=== PATIENT | male | born 1930 | race Caucasian/White ===

== ENCOUNTER 2019-08-03 14:00 | Inpatient (IN) | payer OTHER, MEDICARE ==
[2019-08-03 14:35] LABS: Absolute Lymphocytes (CBC) 1.5 K/uL (0.7-4.9); Hematocrit 43.5 % (39.6-49.0); Lymphocytes % 19.6 % (15.3-44.8); MPV 9.4 fL (7.6-11.3); RBC Red Blood Cell Count 4.62 M/uL (4.33-5.43)
[2019-08-03 14:40] LABS: Protime INR 1.05
[2019-08-03] MEDS ORDERED: ASPIRIN 81 MG CHEWABLE TABLET ONE (14:52)
[2019-08-03 14:53] LABS: Potassium 4.2 mmol/L (3.5-5.1)
[2019-08-03] MEDS ORDERED: NA CHLORIDE 0.9% 1,000 ML ONE (14:54)
[2019-08-03] MEDS ORDERED: FOLIC ACID 5 MG/ML VIAL ONE (14:54)
[2019-08-03 15:05] LABS: ALT/SGPT 16 U/L (12-78); AST/SGOT 21 U/L (15-37); Albumin 3.1 g/dL (3.4-5.0); Alkaline Phosphatase 67 U/L (45-117); Bilirubin Direct 0.3 mg/dL (0-0.2); Bilirubin Total 0.7 mg/dL (0.2-1.0); Magnesium 2.4 mg/dL (1.8-2.4); NT PRO-BNP 519 pg/mL (<450); Protein, Total 6.2 g/dL (6.4-8.2); Troponin (Emerg Dept Use Only) < 0.02 ng/mL (0.0-0.045)
--- NOTE | 2019-08-03 15:10 | RAD REPORT ---
EXAM DESCRIPTION: RAD - Chest Single View - 08/03/2019 2:35 pm CLINICAL HISTORY: Syncopal episode, shortness of breath, cough COMPARISON: May 2015 TECHNIQUE: AP portable chest image was obtained 1432 hour . FINDINGS: Lung volumes are low accentuating baseline interstitial pattern. No peripheral mass or con solidation. No significant failure or volume overload. Heart and vasculature are normal. No measurabl e pleural effusion and no pneumothorax. No acute bony abnormality seen. No acute aortic findings susp ected. IMPRESSION: No acute cardiopulmonary process.
--- NOTE | 2019-08-03 15:30 | ER ---
Nurse's Notes [facility] Name: Chace Schulz Age: 89 yrs Sex: Male : 1930 Arrival Date: 08/03/2019 Time: 14:08 Bed 2 Private MD: Diagnosis: Syncope and collapse-NEAR;Weakness Presentation: 08/03 14:10 Presenting complaint: EMS states: EMS called for possible syncopal episode, upon ph arrival pt found to pale and clammy w/ AMS, responsive only to loud verbal stimuli, also noted to have weakness in R arm and dragging R leg when moving to stretcher, systolic BP 110, BGL 157, episode lasted approx 10 minutes, pt then became more alert and weakness to R side of body improved, Pt reports having recent cold like symptoms for which he has been taking OTC medications, Symptoms began at approx 1315. Transition of care: patient was not received from another setting of care. No acute neurological deficit is noted. The patients blood glucose was checked before arriving to the hospital and was found to be normal. Onset of symptoms was August 03, 2019. Risk Assessment: Do you want to hurt yourself or someone else? Patient reports no desire to harm self or others. Initial Sepsis Screen: Does the patient meet any 2 criteria? No. Patient's initial sepsis screen is negative. Does the patient have a suspected source of infection? No. Patient's initial sepsis screen is negative. Care prior to arrival: IV initiated. 20 GA, in the right antecubital area, Glucose check: 157. 14:10 Method Of Arrival: EMS: [facility] 14:10 Acuity: CARMEN 2 ph Stroke Activation: Symptom onset < 3 hours Physician: Stroke Attending; Name: ; Notified At: ; Arrived At: Physician: Chief Stroke Resident; Name: ; Notified At: ; Arrived At: Physician: Stroke Resident; Name: ; Notified At: ; Arrived At: Physician: ED Attending; Name: ; Notified At: ; Arrived At: Physician: ED Resident; Name: ; Notified At: ; Arrived At: Historical: - Allergies: 14:16 No Known Allergies; ph - Home Meds: 14:16 terazosin 2 mg oral cap 1 cap nightly [Active]; ph - PMHx: 14:16 Hypertension; ph - Immunization history:: Adult Immunizations unknown. - Social history:: Smoking status: Patient/guardian denies using tobacco. - Ebola Screening: : No symptoms or risks identified at this time. - Family history:: not pertinent. Screenin:40 Abuse screen: Denies threats or abuse. Denies injuries from another. Nutritional ph screening: No deficits noted. Tuberculosis screening: No symptoms or risk factors identified. Fall Risk None identified. Assessment: 14:09 Reassessment: code stroke called. ph 14:11 Reassessment: Pt taken to CT via stretcher, accompanied by RN. ph 14:25 VAN Scoring: Arm Drift: Patients demonstrates NO arm weakness. Patient is VAN Negative. ph T-PA (Activase) Screening: Contraindications: Rapidly improving condition or minor deficit: Yes. General: Appears in no apparent distress. comfortable, well groomed, Behavior is calm, cooperative, appropriate for age, Denies fever. Pain: Denies pain. Neuro: Level of Consciousness is awake, alert, obeys commands, Oriented to person, place, time, situation, It Administrator are equal bilaterally Moves all extremities. Full function Speech is normal, Facial symmetry appears normal, Facial symmetry: tongue is midline, Pupils are PERRLA, Intact Denies weakness dizziness, headache. Cardiovascular: Capillary refill < 3 seconds in bilateral fingers Patient's skin is warm and dry. Rhythm is irregular. Respiratory: Reports cough that is non-productive, Airway is patent Respiratory effort is even, unlabored, Respiratory pattern is regular, symmetrical, Breath sounds are clear in left posterior lower lobe and right posterior lower lobe Breath sounds are coarse in mediastinum Denies shortness of breath at rest. GI: Patient currently denies abdominal pain, diarrhea, nausea, vomiting. EENT: Reports nasal discharge that is watery. Derm: Skin is intact, is healthy with good turgor, Skin is pink, warm \T\ dry. Musculoskeletal: Circulation, motion, and sensation intact. Range of motion: intact in all extremities. 14:50 Patient has been NPO before screening. The patient is alert, and able to follow ph commands. The patient does not exhibit slurred or garbled speech. The patient is not exhibiting difficulty speaking. The patient does not exhibit difficulty understanding words. The patient is able to swallow own secretions with no drooling or need for suction. Patient tolerated one teaspoon of water. No drooling, immediate coughing, gurgling, or clearing of the throat was noted. The patient tolerated 90mL of water. No drooling, immediate coughing, gurgling, or clearing of the throat was noted. The patient passed the bedside swallow screening. Oral medications may be given as ordered. Contact Physician for further diet orders. Provider notified of bedside swallow screening results: Shekhar Mata MD. 16:15 Reassessment: Patient appears in no apparent distress at this time. Patient and/or ph family updated on plan of care and expected duration. Pain level reassessed. Patient is alert, oriented x 3, equal unlabored respirations, skin warm/dry/pink. Pt ambulated to restroom w/ steady gait, denies dizziness or SOB, urine sample obtained, awaiting room assignment, family at bedside. 17:20 Reassessment: Patient appears in no apparent distress at this time. Patient and/or ph family updated on plan of care and expected duration. Pain level reassessed. Patient is alert, oriented x 3, equal unlabored respirations, skin warm/dry/pink. 18:21 Reassessment: Patient appears in no apparent distress at this time. Patient and/or ph family updated on plan of care and expected duration. Pain level reassessed. Patient is alert, oriented x 3, equal unlabored respirations, skin warm/dry/pink. Report called to Evonne STRONG. Vital Signs: 14:15 BP 137 / 56; Pulse 72; Resp 18; Temp 97.6; Pulse Ox 99% on R/A; Weight 90.72 kg; Height ph 5 ft. 10 in. (177.80 cm); Pain 0/10; 15:30 BP 159 / 76; Pulse 75; Resp 18; Pulse Ox 99% on R/A; Pain 0/10; ph 17:00 BP 179 / 89; Pulse 75; Resp 18; Pulse Ox 99% on R/A; ph 18:12 BP 178 / 96; Pulse 81; Resp 18; Temp 98.0; Pulse Ox 100% on R/A; ph 14:15 Body Mass Index 28.70 (90.72 kg, 177.80 cm) ph NIH Stroke Scale Scores: 14:25 NIHSS Score: 0 ph 14:30 NIHSS Score: 0 [facility] ED Course: 14:08 Patient arrived in ED. ph 14:09 Shekhar Mata MD is Attending Physician. lars 14:15 Triage completed. ph 14:17 Arm band placed on Patient placed in an exam room, on a stretcher, on media monitor, ph on pulse oximetry. 14:19 Mary Jacobson RN is Primary Nurse. ph 14:33 X-ray completed. Portable x-ray completed in exam room. Patient tolerated procedure sw well. 15:00 Maintain EMS IV. Dressing intact. Good blood return noted. Site clean \T\ dry. Gauge \T\ ph site: 20 RAC. 15:28 Bhavesh Oliver is Hospitalizing Provider. lars 15:41 Patient has correct armband on for positive identification. Placed in gown. Bed in low ph position. Call light in reach. Side rails up X2. monitoring coordinator on. Pulse ox on. NIBP on. Door closed. Noise minimized. Warm blanket given. Head of bed elevated. 15:41 No provider procedures requiring assistance completed. Patient admitted, IV remains in ph place. 16:41 Ultrasound completed. Patient tolerated well. sg3 Administered Medications: 14:59 Drug: NS 0.9% 1000 ml Route: IV; Rate: 1 bolus; Site: right antecubital; ph 15:42 Follow up: Response: No adverse reaction; IV Status: Completed infusion; IV Intake: ph 1000ml 14:59 Drug: Aspirin Chewable Tablet 324 mg Route: PO; ph 15:43 Follow up: Response: No adverse reaction ph 14:59 Drug: foLIC Acid 1 mg Route: IVPB; Site: right antecubital; ph 15:43 Follow up: Response: No adverse reaction; IV Status: Completed infusion ph 18:15 Drug: Lovenox 40 mg Route: Sub-Q; Site: right lower abdomen; ph 18:25 Follow up: Response: No adverse reaction ph Point of Care Testing: Blood Glucose: 14:27 Blood Glucose: 119 mg/dL; ph Ranges: Intake: 15:42 IV: 1000ml; Total: 1000ml. ph Outcome: 15:29 Decision to Hospitalize by Provider. lars 18:22 Admitted to Tele accompanied by tech, family with patient, via wheelchair, room 401, ph with chart. 18:22 Condition: stable 18:22 Instructed on the need for admit. 18:41 Patient left the ED. ph NIH Stroke Scale - NIH Stroke Score Date: 08/03/2019 Time: 14:25 Total Score = 0 1a. Level of Consciousness (LOC) - 0(Alert) 1b. Level of Consciousness (LOC) (Year \T\ Age) - 0(Both) 1c. LOC Commands (Open \T\ Closes Eyes/[employer] Members[employer] Sales Agent) - 0(Both) 2. Best Gaze (Lateral Gaze Paresis) - 0(Normal) 3. Visual Field Loss - 0(No visual loss) 4. Facial Palsy - 0(Normal) 5a. Left Arm: Motor (10-second hold) - 0(No drift) 5b. Right Arm: Motor (10-second hold) - 0(No drift) 6a. Left Leg: Motor (5-second hold - always test supine) - 0(No drift) 6b. Right Leg: Motor (5-second hold - always test supine) - 0(No drift) 7. Limb Ataxia (finger/nose \T\ heel/ferrara - test with eyes open) - 0(Absent) 8. Sensory Loss (pinprick arms/legs/face) - 0(Normal) 9. Best Language: Aphasia (description/naming/reading) - 0(No aphasia) 10. Dysarthria (speech clarity - read or repeat words) - 0(Normal) 11. Extinction and Inattention (visual/tactile/auditory/spatial/personal) - 0(No abnormality) Initials: NIH Stroke Scale - NIH Stroke Score Date: 08/03/2019 Time: 14:30 Total Score = 0 1a. Level of Consciousness (LOC) - 0(Alert) 1b. Level of Consciousness (LOC) (Year \T\ Age) - 0(Both) 1c. LOC Commands (Open \T\ Closes Eyes/[employer] Members[employer] Sales Agent) - 0(Both) 2. Best Gaze (Lateral Gaze Paresis) - 0(Normal) 3. Visual Field Loss - 0(No visual loss) 4. Facial Palsy - 0(Normal) 5a. Left Arm: Motor (10-second hold) - 0(No drift) 5b. Right Arm: Motor (10-second hold) - 0(No drift) 6a. Left Leg: Motor (5-second hold - always test supine) - 0(No drift) 6b. Right Leg: Motor (5-second hold - always test supine) - 0(No drift) 7. Limb Ataxia (finger/nose \T\ heel/ferrara - test with eyes open) - 0(Absent) 8. Sensory Loss (pinprick arms/legs/face) - 0(Normal) 9. Best Language: Aphasia (description/naming/reading) - 0(No aphasia) 10. Dysarthria (speech clarity - read or repeat words) - 0(Normal) 11. Extinction and Inattention (visual/tactile/auditory/spatial/personal) - 0(No abnormality) Initials: [facility] Signatures: Shekhar Mata MD MD cha Hall, Patricia, RN RN ph Levi, Mary Carmen Vazquez sg3
--- NOTE | 2019-08-03 15:30 | EDPHYS ---
Physician Documentation [facility] Name: Chace Schulz Age: 89 yrs Sex: Male : 1930 Arrival Date: 08/03/2019 Time: 14:08 Bed 2 Private MD: ED Physician Shekhar Mata HPI: 08/03 14:30 This 89 yrs old Male presents to ER via EMS with complaints of Near Syncope, lars Weakness. 14:30 The patient has experienced near-syncope, almost passed out, felt dizzy. Onset: The lars symptoms/episode began/occurred just prior to arrival. Duration: This was a single episode, that lasted 25 minute(s). Context: occurred at home. Associated injury: The patient did not suffer any apparent associated injury. Associated signs and symptoms: The patient has no apparent associated signs or symptoms. The patient has not experienced similar symptoms in the past. Historical: - Allergies: 14:16 No Known Allergies; ph - Home Meds: 14:16 terazosin 2 mg oral cap 1 cap nightly [Active]; ph - PMHx: 14:16 Hypertension; ph - Immunization history:: Adult Immunizations unknown. - Social history:: Smoking status: Patient/guardian denies using tobacco. - Ebola Screening: : No symptoms or risks identified at this time. - Family history:: not pertinent. ROS: 14:30 Constitutional: Negative for fever, chills, and weight loss, Eyes: Negative for injury, lars pain, redness, and discharge, ENT: Negative for injury, pain, and discharge, Neck: Negative for injury, pain, and swelling, Cardiovascular: Negative for chest pain, palpitations, and edema, Respiratory: Negative for shortness of breath, cough, wheezing, and pleuritic chest pain, Abdomen/GI: Negative for abdominal pain, nausea, vomiting, diarrhea, and constipation, Back: Negative for injury and pain, : Negative for injury, bleeding, discharge, and swelling, MS/Extremity: Negative for injury and deformity, Skin: Negative for injury, rash, and discoloration, Psych: Negative for depression, anxiety, suicide ideation, homicidal ideation, and hallucinations, Allergy/Immunology: Negative for hives, rash, and allergies, Endocrine: Negative for neck swelling, polydipsia, polyuria, polyphagia, and marked weight changes, Hematologic/Lymphatic: Negative for swollen nodes, abnormal bleeding, and unusual bruising. 14:30 Neuro: Positive for near syncope. Exam: 14:30 Constitutional: This is a well developed, well nourished patient who is awake, alert, lars and in no acute distress. Head/Face: Normocephalic, atraumatic. Eyes: Pupils equal round and reactive to light, extra-ocular motions intact. Lids and lashes normal. Conjunctiva and sclera are non-icteric and not injected. Cornea within normal limits. Periorbital areas with no swelling, redness, or edema. ENT: Nares patent. No nasal discharge, no septal abnormalities noted. Tympanic membranes are normal and external auditory canals are clear. Oropharynx with no redness, swelling, or masses, exudates, or evidence of obstruction, uvula midline. Mucous membranes moist. Neck: Trachea midline, no thyromegaly or masses palpated, and no cervical lymphadenopathy. Supple, full range of motion without nuchal rigidity, or vertebral point tenderness. No Meningismus. Chest/axilla: Normal chest wall appearance and motion. Nontender with no deformity. No lesions are appreciated. Cardiovascular: Regular rate and rhythm with a normal S1 and S2. No gallops, murmurs, or rubs. Normal PMI, no JVD. No pulse deficits. Respiratory: Lungs have equal breath sounds bilaterally, clear to auscultation and percussion. No rales, rhonchi or wheezes noted. No increased work of breathing, no retractions or nasal flaring. Abdomen/GI: Soft, non-tender, with normal bowel sounds. No distension or tympany. No guarding or rebound. No evidence of tenderness throughout. Back: No spinal tenderness. No costovertebral tenderness. Full range of motion. Male : Normal genitalia with no discharge or lesions. Skin: Warm, dry with normal turgor. Normal color with no rashes, no lesions, and no evidence of cellulitis. MS/ Extremity: Pulses equal, no cyanosis. Neurovascular intact. Full, normal range of motion. Neuro: Awake and alert, GCS 15, oriented to person, place, time, and situation. Cranial nerves II-XII grossly intact. Motor strength 5/5 in all extremities. Sensory grossly intact. Cerebellar exam normal. Normal gait. Psych: Awake, alert, with orientation to person, place and time. Behavior, mood, and affect are within normal limits. Vital Signs: 14:15 BP 137 / 56; Pulse 72; Resp 18; Temp 97.6; Pulse Ox 99% on R/A; Weight 90.72 kg; Height ph 5 ft. 10 in. (177.80 cm); Pain 0/10; 15:30 BP 159 / 76; Pulse 75; Resp 18; Pulse Ox 99% on R/A; Pain 0/10; ph 17:00 BP 179 / 89; Pulse 75; Resp 18; Pulse Ox 99% on R/A; ph 18:12 BP 178 / 96; Pulse 81; Resp 18; Temp 98.0; Pulse Ox 100% on R/A; ph 14:15 Body Mass Index 28.70 (90.72 kg, 177.80 cm) ph NIH Stroke Scale Scores: 14:25 NIHSS Score: 0 ph 14:30 NIHSS Score: 0 lars MDM: 14:09 Patient medically screened. [facility] 14:36 Data reviewed: vital signs, nurses notes, lab test result(s), EKG, radiologic studies, [facility] CT scan, doppler, plain films. 15:22 ED course: PT IN ED, NIH 0, BACK TO BASELINE, NO DEFICITS, NO TPA. [facility] 11 14:24 Order name: Basic Metabolic Panel 11 14:24 Order name: CBC with Diff 08/03 14:24 Order name: Protime (+inr) 11 14:24 Order name: Ptt, Activated ph 11 14:30 Order name: LFT's [facility] 08/03 14:30 Order name: Magnesium [facility] 08/03 14:30 Order name: NT PRO-BNP [facility] 08/03 14:30 Order name: Troponin (emerg Dept Use Only) [facility] 08/03 14:36 Order name: CBC with Automated Diff; Complete Time: 14:37 EDMS 08/03 14:39 Order name: Glucose, Ancillary Testing; Complete Time: 15:02 EDMS 08/03 14:42 Order name: Protime (+INR); Complete Time: 15:02 EDMS 08/03 14:42 Order name: PTT, Activated Partial Thromb; Complete Time: 15:02 EDMS 08/03 14:53 Order name: Basic Metabolic Panel; Complete Time: 15:02 EDMS 08/03 15:06 Order name: Liver (Hepatic) Function; Complete Time: 15:20 EDMS 08/03 14:24 Order name: CT Stroke Brain w/o Contrast ph 08/03 14:24 Order name: Stroke CXR 1 View ph 08/03 14:24 Order name: EKG; Complete Time: 14:25 ph 08/03 14:24 Order name: Accucheck; Complete Time: 14:46 ph 08/03 14:36 Order name: US Carotid Artery Bilateral lars 08/03 15:06 Order name: Troponin (Emerg Dept Use Only); Complete Time: 15:20 EDMS 08/03 15:06 Order name: NT PRO-BNP; Complete Time: 15:20 EDMS 08/03 15:06 Order name: Magnesium; Complete Time: 15:20 EDMS 08/03 15:39 Order name: RAD; Complete Time: 16:00 EDMS 08/03 16:16 Order name: Urine Dipstick--Ancillary (enter results) 08/03 16:22 Order name: CT EDKS 08/03 17:25 Order name: US EDKS 08/03 14:24 Order name: Cardiac monitoring; Complete Time: 14:47 ph 08/03 14:24 Order name: EKG - Nurse/Tech; Complete Time: 15:30 ph 08/03 14:24 Order name: IV Saline Lock; Complete Time: 14:47 ph 08/03 14:24 Order name: Labs collected and sent; Complete Time: 14:47 ph 08/03 14:24 Order name: NPO; Complete Time: 14:47 ph 08/03 14:24 Order name: O2 Per Protocol; Complete Time: 14:47 ph 08/03 14:24 Order name: O2 Sat Monitoring; Complete Time: 14:47 ph 08/03 14:24 Order name: Stroke Swallow Screen; Complete Time: 15:00 ph Administered Medications: 14:59 Drug: NS 0.9% 1000 ml Route: IV; Rate: 1 bolus; Site: right antecubital; ph 15:42 Follow up: Response: No adverse reaction; IV Status: Completed infusion; IV Intake: ph 1000ml 14:59 Drug: Aspirin Chewable Tablet 324 mg Route: PO; ph 15:43 Follow up: Response: No adverse reaction ph 14:59 Drug: foLIC Acid 1 mg Route: IVPB; Site: right antecubital; ph 15:43 Follow up: Response: No adverse reaction; IV Status: Completed infusion ph 18:15 Drug: Lovenox 40 mg Route: Sub-Q; Site: right lower abdomen; ph 18:25 Follow up: Response: No adverse reaction ph Point of Care Testing: Blood Glucose: 14:27 Blood Glucose: 119 mg/dL; ph Ranges: Critical Glucose Levels:Adult <50 mg/dl or >400 mg/dl <40 mg/dl or >180 mg/dl Disposition: 08/03/19 15:29 Hospitalization ordered by Bhavesh Oliver for Inpatient Admission. Preliminary diagnosis are Syncope and collapse - NEAR, Weakness. - Bed requested for Telemetry/MedSurg (Inpatient). - Status is Inpatient Admission. ph - Condition is Stable. - Problem is new. - Symptoms have improved. UTI on Admission? No NIH Stroke Scale - NIH Stroke Score Date: 08/03/2019 Time: 14:25 Total Score = 0 1a. Level of Consciousness (LOC) - 0(Alert) 1b. Level of Consciousness (LOC) (Year \T\ Age) - 0(Both) 1c. LOC Commands (Open \T\ Closes Eyes/Sales Representative Groceries) - 0(Both) 2. Best Gaze (Lateral Gaze Paresis) - 0(Normal) 3. Visual Field Loss - 0(No visual loss) 4. Facial Palsy - 0(Normal) 5a. Left Arm: Motor (10-second hold) - 0(No drift) 5b. Right Arm: Motor (10-second hold) - 0(No drift) 6a. Left Leg: Motor (5-second hold - always test supine) - 0(No drift) 6b. Right Leg: Motor (5-second hold - always test supine) - 0(No drift) 7. Limb Ataxia (finger/nose \T\ heel/ferrara - test with eyes open) - 0(Absent) 8. Sensory Loss (pinprick arms/legs/face) - 0(Normal) 9. Best Language: Aphasia (description/naming/reading) - 0(No aphasia) 10. Dysarthria (speech clarity - read or repeat words) - 0(Normal) 11. Extinction and Inattention (visual/tactile/auditory/spatial/personal) - 0(No abnormality) Initials: ph NIH Stroke Scale - NIH Stroke Score Date: 08/03/2019 Time: 14:30 Total Score = 0 1a. Level of Consciousness (LOC) - 0(Alert) 1b. Level of Consciousness (LOC) (Year \T\ Age) - 0(Both) 1c. LOC Commands (Open \T\ Closes Eyes/Sales Representative Groceries) - 0(Both) 2. Best Gaze (Lateral Gaze Paresis) - 0(Normal) 3. Visual Field Loss - 0(No visual loss) 4. Facial Palsy - 0(Normal) 5a. Left Arm: Motor (10-second hold) - 0(No drift) 5b. Right Arm: Motor (10-second hold) - 0(No drift) 6a. Left Leg: Motor (5-second hold - always test supine) - 0(No drift) 6b. Right Leg: Motor (5-second hold - always test supine) - 0(No drift) 7. Limb Ataxia (finger/nose \T\ heel/ferrara - test with eyes open) - 0(Absent) 8. Sensory Loss (pinprick arms/legs/face) - 0(Normal) 9. Best Language: Aphasia (description/naming/reading) - 0(No aphasia) 10. Dysarthria (speech clarity - read or repeat words) - 0(Normal) 11. Extinction and Inattention (visual/tactile/auditory/spatial/personal) - 0(No abnormality) Initials: lars Signatures: Dispatcher [employer] EDMS Shekhar Mata MD MD cha Hall, Patricia, RN RN Stacie Martinez Corrections: (The following items were deleted from the chart) 15:40 15:29 Hospitalization Ordered by Bhavesh Oliver for Inpatient Admission. eb Preliminary diagnosis is Syncope and collapse - NEAR; Weakness. Bed requested for Telemetry/MedSurg (Inpatient). Status is Inpatient Admission. Condition is Stable. Problem is new. Symptoms have improved. UTI on Admission? No. lars 17:56 15:40 08/03/2019 15:29 Hospitalization Ordered by Bhavesh Oliver for Inpatient eb Admission. Preliminary diagnosis is Syncope and collapse - NEAR; Weakness. Bed requested for Telemetry/MedSurg (Inpatient). Status is Inpatient Admission. Condition is Stable. Problem is new. Symptoms have improved. UTI on Admission? No. eb 18:41 17:56 08/03/2019 15:29 Hospitalization Ordered by Bhavesh Oliver for Inpatient Admission. Preliminary diagnosis is Syncope and collapse - NEAR; Weakness. Bed requested for Telemetry/MedSurg (Inpatient). Status is Inpatient Admission. Condition is Stable. Problem is new. Symptoms have improved. UTI on Admission? No. eb
--- NOTE | 2019-08-03 16:11 | RAD REPORT ---
EXAM DESCRIPTION: CT - Ct Stroke Brain Wo Cont - 08/03/2019 3:26 pm CLINICAL HISTORY: Acute stroke symptoms, syncope, right leg weakness COMPARISON: None. TECHNIQUE: Axial 5 millimeter thick images of the head were obtained without IV contrast. All CT scans are performed using dose optimization technique as appropriate and may include automated exposure control or mA/KV adjustment according to patient size. FINDINGS: No intracranial hemorrhage, mass, or cerebral edema. No acute cortical based infarction. N o cortical edema or sulcal effacement. There is diminished attenuation in the inferior aspect left ce rebellar hemisphere. Nonhemorrhagic CVA is possible. Posterior fossa assessment is significantly limi jagruti on CT imaging. Prominent atrophy and chronic ischemic changes are present. Ventricles are in prop ortion to volume loss. No extra-axial fluid collections. Novak matter-white matter differentiation is preserved. No globe or orbital content abnormality. Visualized portions of the mastoid air cells, paranasal sinuses, and orbits are unremarkable. Images were only initially available in the exception folder. This precludes dictation of the report. Findings were telephoned to the referring physician 2:29 p.m. IMPRESSION: No intracranial hemorrhage. No acute cortical based infarction identified. Diminished attenuation in the inferior left cerebellum is present. This is potentially nonhemorrhagic CVA ; however, CT imaging is quite limited in the posterior fossa. Prominent atrophy and chronic ischemic change.
--- NOTE | 2019-08-03 17:13 | RAD REPORT ---
EXAM DESCRIPTION: US - CP - 08/03/2019 4:38 pm CLINICAL HISTORY: Syncope COMPARISON: None. TECHNIQUE: Real-time sonographic evaluation of both carotid systems was performed. Novak scale and Do ppler interrogation were performed with waveform tracing bilaterally. FINDINGS: Normal high resistance waveforms are noted in both external carotid arteries. The common c arotid arteries and internal carotid arteries show normal low resistance waveforms. Calcified plaquing changes are present at each carotid bulb. On visual inspection significant luminal narrowing is not identified. Peak systolic and end diastolic velocity values and the ICA/CCA ratios are in the non-hemodynamically significant range. Antegrade flow seen in both vertebral arteries. Velocity values and ratios were recorded and are retained in the patient's imaging records. IMPRESSION: Bilateral carotid bulb plaquing changes not seen to significantly narrow vessel lumen. No evidence of a hemodynamically significant stenosis.
--- NOTE | 2019-08-03 17:35 | P.HP ---
Certification for Inpatient Patient admitted to: Observation With expected LOS: <2 Midnights Practitioner: I am a practitioner with admitting privileges, knowledge of patient current condition, hospital course, and medical plan of care. Services: Services provided to patient in accordance with Admission requirements found in Title 42 Section 412.3 of the Code of Federal Regulations Patient History Date of Service: 08/04/19 Reason for admission: Loss of consciousness History of Present Illness: 89-year-old gentleman was brought to the emergency department after he passed out while sitting on a dinning chair. Patient just finished eating. Spouse report he was out for about 25-30 min, staring, not responding to verbal or sternal rub, he would become stiff intermittently, no seizures witnessed. According to the spouse patient also became pale and sweaty. EMS was called, the initially found him unresponsive. He regained consciousness when he was transferred to a stretcher. According to the patient's systolic blood pressure was in the low 100s when EMS checked it. Prior to that it was 140 systolic in the morning. Patient reports history of irregular heartbeat, never seen a cardiology. He was recently started on terazosin for severe hypertension. He took the terazosin last night. Stroke alert was called in the ED. Patient's symptoms resolved before arrival to the ED. CT head was negative for acute stroke. EKG demonstrated sinus rhythm , noted occasional PVCs. Initial troponin was negative. Chest x-ray demonstrated no acute disease. He had no focal deficits during my examination. Patient is placed under observation for syncope and TIA work up Allergies No Known Allergies Allergy (Verified 08/03/19 18:41) Home Medications: Bimatoprost [Lumigan] 1 drop BEDTIME 08/03/19 Brimonidine Tartrate [Alphagan P] 1 drop BID 08/03/19 Terazosin HCl 1 cap PO DAILY 08/03/19 - Past Medical/Surgical History -: Hypertension - Family History Mother -: Heart disease - Social History Smoking Status: Never smoker Alcohol use: No CD- Drugs: No Place of Residence: Home Review of Systems Other: General: No fever, no malaise, no unintentional weight loss. Eyes: No eye discharge, Respiratory: No cough, no shortness of breath. CVS: No chest pain, no palpitation, no lightheadedness. GI: No abdominal pain, no nausea no vomit, no constipation, no diarrhea. Genitourinary: No dysuria, no urinary frequency, no incontinence, no hematuria. Musculoskeletal: No joint pains, or joint swelling, no gait instability. Neurology: No headache, no asymmetric, weakness, no problem with swallowing. Except as documented, all other systems reviewed and negative. Physical Examination - Physical Exam General: Alert, In no apparent distress, Oriented x3 HEENT: Atraumatic, Normocephalic, PERRLA, Mucous membr. moist/pink, EOMI, Sclerae nonicteric Neck: Supple, 2+ carotid pulse no bruit, JVD not distended, No Thyromegaly Respiratory: Clear to auscultation bilaterally, Normal air movement Cardiovascular: No edema, Normal pulses, No murmurs, Irregular heart rate/rhythm Capillary refill: <2 Seconds Gastrointestinal: Normal bowel sounds, Soft and benign, Non-distended, No tenderness Musculoskeletal: No swelling, No erythema Integumentary: No rashes, No erythema Neurological: Normal gait, Normal speech, Normal strength at 5/5 x4 extr, Sensation intact, Cranial nerves 3-12 intact - Studies Laboratory Data (last 24 hrs) 08/03/19 14:28: Magnesium 2.4, Total Bilirubin 0.7, AST 21, ALT 16, Alkaline Phosphatase 67 08/03/19 14:28: PT 12.4, INR 1.05, APTT 30.5 08/03/19 14:28: WBC 7.8, Hgb 14.8, Hct 43.5, Plt Count 201 08/03/19 14:28: Sodium 139, Potassium 4.2, BUN 17, Creatinine 1.40 H, Glucose 104 Assessment and Plan - Problems (Diagnosis) (1) Accelerated hypertension Current Visit: Yes Status: Acute (2) Syncope and collapse Current Visit: Yes Status: Acute (3) Chronic kidney disease, stage 3 Current Visit: Yes Status: Acute - Plan Place patient under observation hall monitor for arrhythmias and cardiac pauses Trend troponin x3 Obtain echocardiogram Follow carotid Doppler result Check orthostatics vitals MRI of the brain is requested Blood pressure control-Will hold terazosin due to high risk for orthostatic hypotension. Will order oral metoprolol for his blood pressure Labetalol p.r.n. for BP spikes Monitor for seizures Seizure precautions Fall precautions - Advance Directives Does patient have a Living Will: Yes Does patient have a Durable POA for Healthcare: Yes
[2019-08-03] MEDS ORDERED: ENOXAPARIN 40 MG/0.4 ML SQ ONE (18:15)
[2019-08-03] MEDS ORDERED: ONDANSETRON 4 MG/2 ML VIAL IV PRN (18:41)
[2019-08-03] MEDS ORDERED: ACETAMINOPHEN 500 MG TAB PO PRN (18:41)
[2019-08-03] MEDS ORDERED: LABETALOL 20 MG/4ML SYRINGE IV PRN (18:41)
[2019-08-03] MEDS: NA CHLORIDE 0.9% 1,000 ML IV SCH (18:41)
[2019-08-03 19:27] LABS: Troponin I < 0.02 ng/mL (0.0-0.045)
[2019-08-03 19:49] VITALS: BMI 28.7
[2019-08-03] MEDS: METOPROLOL TAR 25 MG TAB PO SCH (20:04)
[2019-08-03 20:20] LABS: Urine Appearance CLEAR; Urine Bilirubin NEGATIVE (NEG); Urine Blood NEGATIVE (NEG); Urine Color YELLOW; Urine Glucose NEGATIVE (NEG); Urine Protein NEGATIVE (NEG)
[2019-08-03 20:29] LABS: Urine Microscopic Reflex NO UMIC
[2019-08-04] MEDS: METOPROLOL TAR 25 MG TAB PO SCH (05:02)
[2019-08-04 06:13] LABS: Absolute Lymphocytes (CBC) 2.1 K/uL (0.7-4.9); Hematocrit 46.1 % (39.6-49.0); Lymphocytes % 28.6 % (15.3-44.8); MPV 9.2 fL (7.6-11.3); RBC Red Blood Cell Count 4.81 M/uL (4.33-5.43)
[2019-08-04 06:23] LABS: Magnesium 2.4 mg/dL (1.8-2.4); Phosphorus 2.6 mg/dL (2.5-4.9); Potassium 4.2 mmol/L (3.5-5.1)
[2019-08-04] MEDS: ENOXAPARIN 40 MG/0.4 ML SQ SCH (08:18)
[2019-08-04] MEDS ORDERED: AMLODIPINE 5 MG TAB PO SCH (09:00)
[2019-08-04] MEDS: AMLODIPINE 10 MG TAB PO SCH (09:56)
--- NOTE | 2019-08-04 11:55 | P.PN ---
Subjective Date of Service: 08/04/19 Chief Complaint: Loss of consciousness Subjective: No new changes No issues overnight. Telemetry: Sinus arrhythmia, heart rate in the 60s. Blood pressure readings noted to be elevated. Patient denies any chest pain Physical Examination - Vital Signs Temperature: 98.2 F Blood Pressure: 149/91 Pulse: 75 Respirations: 18 Pulse Ox (%): 95 - Physical Exam General: Alert, In no apparent distress, Oriented x3 HEENT: Mucous membr. moist/pink Neck: Supple, JVD not distended Respiratory: Clear to auscultation bilaterally, Normal air movement Cardiovascular: No edema, Normal S1 S2, No murmurs, Irregular heart rate/rhythm Gastrointestinal: Normal bowel sounds, Soft and benign, Non-distended, No tenderness Musculoskeletal: No swelling Integumentary: No rashes Neurological: Normal speech, Normal strength at 5/5 x4 extr - Studies Laboratory Data (last 24 hrs) 08/03/19 14:28: Magnesium 2.4, Total Bilirubin 0.7, AST 21, ALT 16, Alkaline Phosphatase 67 08/03/19 14:28: PT 12.4, INR 1.05, APTT 30.5 08/03/19 14:28: WBC 7.8, Hgb 14.8, Hct 43.5, Plt Count 201 08/03/19 14:28: Sodium 139, Potassium 4.2, BUN 17, Creatinine 1.40 H, Glucose 104 Assessment And Plan - Current Problems (Diagnosis) (1) Accelerated hypertension Current Visit: Yes Status: Acute (2) Syncope and collapse Current Visit: Yes Status: Acute (3) Chronic kidney disease, stage 3 Current Visit: Yes Status: Acute - Plan Continue Tenormin Troponin x3: Negative Echocardiogram is pending. Check orthostatics vitals MRI of the brain is requested and pending Blood pressure control-Will hold terazosin due to high risk for orthostatic hypotension. Blood pressure control with amlodipine Labetalol p.r.n. for BP spikes Cardiology consult. Nature of syncopal episodes suggest cardiac origin. Patient may require event monitor as an outpatient. Monitor for seizures Seizure precautions Fall precautions
--- NOTE | 2019-08-04 12:46 | EKG ---
Test Date: 2019-08-03 Test Time: 15:16:13 Blacksmith Apprentice: PH MEASUREMENT RESULTS: Intervals: Rate: 71 MS: 184 QRSD: 94 QT: 416 QTc: 452 [place]: P: 41 MS: 184 QRS: -24 T: 20 INTERPRETIVE STATEMENTS: Sinus rhythm with marked sinus arrhythmia Voltage criteria for left ventricular hypertrophy Abnormal ECG No previous ECG available for comparison Electronically Signed On 08-04-19 12:44:38 DIRECTOR OF ASSESSING by Vick Olson
--- NOTE | 2019-08-04 12:46 | EKG ---
Test Date: 2019-08-03 Test Time: 15:16:56 Pharm Tech: PH MEASUREMENT RESULTS: Intervals: Rate: 74 [place]: 182 QRSD: 90 QT: 412 QTc: 457 [place]: P: 36 AK: 182 QRS: -25 T: 16 INTERPRETIVE STATEMENTS: Sinus rhythm with premature supraventricular complexes Voltage criteria for left ventricular hypertrophy Abnormal ECG Compared to ECG 08/03/2019 15:16:13 Atrial premature complex(es) now present Sinus arrhythmia no longer present Electronically Signed On 08-04-19 12:44:37 PROJECT ARCHIVIST by Vick Olson
[2019-08-04] MEDS: NA CHLORIDE 0.9% 1,000 ML IV SCH (15:15)
[2019-08-05] MEDS: ENOXAPARIN 40 MG/0.4 ML SQ SCH (07:57)
[2019-08-05] MEDS: AMLODIPINE 10 MG TAB PO SCH (07:58)
[2019-08-05] MEDS: NA CHLORIDE 0.9% 1,000 ML IV SCH (11:03)
--- NOTE | 2019-08-05 14:04 | RAD REPORT ---
EXAM DESCRIPTION: MRI - Brain Wo Cont - 08/05/2019 1:42 pm CLINICAL HISTORY: Transient loss of conciousness CVA symptomology. COMPARISON: Ct Stroke Brain Wo Cont dated 08/03/2019 TECHNIQUE: Multi-sequence, multiplanar MR imaging of the brain was performed without contrast. FINDINGS: No intracranial hemorrhage, hydrocephalus or extra-axial fluid collections.Mild periventri cular and deep white matter chronic microvascular ischemic changes suspected. 3.0 cm cortically base d area of restricted diffusion is seen in the left occipital pole with diminished ADC signal compatib le with acute CVA. No hemorrhage is seen. Midline structures are normally formed. Mild mucoperiosteal thickening is seen of the paranasal sinuses. IMPRESSION: 3.0 cm nonhemorrhagic acute CVA suspected medial left occipital lobe, correlating to lef t posterior cerebral artery territory.
[2019-08-05] MEDS ORDERED: ASPIRIN EC 81 MG TAB PO ONE (14:22)
--- NOTE | 2019-08-05 15:46 | RAD REPORT ---
EXAM DESCRIPTION: MRI - MRA Head Wo Cont - 08/05/2019 3:24 pm CLINICAL HISTORY: CVA COMPARISON: None. TECHNIQUE: Axial and coronal 3D [id number] image acquisition was performed. 3D rotational images were generated with source and reconstruction images reviewed. Horizontal and vertical axis rotation al views generated using MIP protocol. FINDINGS: No aneurysm or vascular malformation. Distal vertebral arteries, basilar artery and the bi lateral internal carotid artery show no stenosis or significant atherosclerotic change. The right A1 segment of the anterior cerebral artery shows mild atherosclerotic change. The bilateral middle cereb ral artery show no significant atherosclerotic changes. Short-segment significant stenosis is present in the P1 segment right posterior cerebral artery is well is significant stenosis in a peripheral po sterior cerebral artery branch. No vasculitis findings. IMPRESSION: Significant atherosclerotic changes are present in the right posterior cerebral artery w ith more mild atherosclerotic changes in the right anterior cerebral artery. No other significant findings.
--- NOTE | 2019-08-05 15:47 | RAD REPORT ---
EXAM DESCRIPTION: MRI - MRA Neck W/Wo Cont - 08/05/2019 3:24 pm CLINICAL HISTORY: CVA TECHNIQUE: MR angiography of the cervical vasculature performed. Coronal imaging plane acquisition u tilized. A 20 MultiHance contrast volume was utilized. Coronal reformatted images were generated and reviewed. Vertical axis 3D rotational projections obtained using maximum intensity projection protoco l. FINDINGS: No aneurysm or vascular malformation. Aortic arch is 3 vessel configuration with no origin s stenosis. Vertebral artery origins are tortuous but without stenosis. Codominant vertebral artery s how no suspicious findings. Bilateral common carotid and internal carotid arteries show no dissection , stenosis or other significant finding. There is tortuosity of the internal carotid artery's. IMPRESSION: MRA neck imaging showing no significant or suspicious finding.
--- NOTE | 2019-08-05 15:56 | EKG ---
Test Date: 2019-08-04 Test Time: 08:59:58 Sand Conditioner Machine: TO P MEASUREMENT RESULTS: Intervals: Rate: 66 GA: 192 QRSD: 94 QT: 412 QTc: 431 [place]: P: 28 GA: 192 QRS: -26 T: 47 INTERPRETIVE STATEMENTS: Sinus rhythm with marked sinus arrhythmia Otherwise normal ECG Compared to ECG 08/03/2019 15:16:56 Atrial premature complex(es) no longer present Left ventricular hypertrophy no longer present Electronically Signed On 08-05-19 15:54:39 WEATHERIZATION FIELD TECHNICIAN by Reggie Guzman
--- NOTE | 2019-08-05 16:01 | ECHO ---
HEIGHT: 5 ft 10 in WEIGHT: 200 lb 0 oz DATE OF STUDY: 08/05/[address]: ailin garcia 2-DIMENSIONAL: YES M.MODE: YES DOPPLER: YES COLOR FLOW: YES TDS: PORTABLE: DEFINITY: BUBBLE STUDY: DIAGNOSIS: SYNCOPE AND COLLAPSE CARDIAC HISTORY: CATHERIZATION: NO SURGERY: NO PROSTHETIC VALVE: NO PACEMAKER: NO MEASUREMENTS (cm) DIASTOLIC (NORMALS) SYSTOLIC (NORMALS) IVSd 1.1 (0.6-1.2) LA Diam 4.2 (1.9-4.0) LVEF 72% LVIDd 4.1 (3.5-5.7) LVIDs 2.4 (2.0-3.5) %FS 40% LVPWd 1.1 (0.6-1.2) Ao Diam 3.2 (2.0-3.7) 2 DIMENSIONAL ASSESSMENT: RIGHT ATRIUM: NORMAL LEFT ATRIUM: DILATED RIGHT VENTRICLE: NORMAL LEFT VENTRICLE: NORMAL TRICUSPID VALVE: NORMAL MITRAL VALVE: MITRAL ANNULAR CALCIFICATION PULMONIC VALVE: NORMAL AORTIC VALVE: SCLEROSIS PERICARDIAL EFFUSION: NONE AORTIC ROOT: LEFT VENTRICULAR WALL MOTION: NORMAL DOPPLER/COLOR FLOW: MILD TRICUSPID REGURGITATION. TRACE MITRAL REGURGITATION. NORMAL RIGHT VENTRICULAR SYSTOLIC PRESSURE. NO AORTIC STENOSIS. NO AORTIC REGURGITATION. COMMENTS: NORMAL LEFT VENTRICULAR EJECTION FRACTION. MITRAL ANNULAR CALCIFICATION. AORTIC SCLEROSIS WITH NO AORTIC STENOSIS OR AORITC REGURGITATION. DILATED LEFT ATRIUM. MILD TRICUSPID REGURGITATION. TRACE MITRAL REGURGITATION. TECHNOLOGIST: CAITY GUERRIER
--- NOTE | 2019-08-05 19:16 | PN ---
Date of Progress Note: 08/05/2019 Subjective: The patient seen and examined. Chart reviewed and case discussed with RN. Patient seem s to be asymptomatic, was able to ambulate well without difficulty. Blood pressure has been stable, improved since arrival. Medication List: Reviewed. Physical Examination: Vital Signs: Temperature 98.3, heart rate 64, blood pressure 160/76, respirations 18, O2 of 100% on room air. General: Awake, alert, oriented x3. Elderly male, not in any acute distress. CV: S1, S2. Regular rate and rhythm. Peripheral pulses present. Respiratory: Moving air well bilaterally. No wheezing or stridor. Gastrointestinal: Abdomen is soft, nontender, nondistended. Positive bowel sounds. Extremities: No clubbing, cyanosis, or edema. Neuro: Cranial nerves 2 through 12 intact grossly. No focal neurological deficits. Speech is bisi l. Imaging: MRI of the brain has been taken, but official report is pending. CT scan of the head on ad mission had shown no intracranial hemorrhage, no acute cortical based infarction identified, diminish ed attenuation in the inferior left cerebellum present, potentially nonhemorrhagic CVA. CT imaging q uite limited in the posterior fossa, prominent atrophy and chronic ischemic change. Assessment: 1.Accelerated hypertension, improved. We will continue medications. Echocardiogram is pending. Tr oponin levels are negative x3. 2.Syncope and collapse, possible cardiogenic versus neurogenic cause. Possible seizure or orthostat ic hypotension. We will check orthostatic vital signs. MRI of the brain is pending. Echocardiogram was also pending at this time. Carotid artery ultrasound shows some plaquing, but no narrowing of t he lumen with resultant hemodynamically negative significant stenosis. Patient has not had any furth er episodes. Working well with PT. 3.Chronic kidney disease stage 3. Creatinine is normal, improved from admission. Continue to monit or. Possible event monitor as an outpatient. No seizure episodes. May need ambulatory seizure alicia toring. Plan: Follow up on MRI of the brain and echocardiogram. There was some changes on head CT concernin g for stroke. Therefore, we will rule out CVA. If MRI of the brain and echo were negative, we will likely discharge with outpatient followup. Orthostatic vital signs were positive going from sitting to standing position. Patient has been counseled regarding changes in position, voiced understanding . SA/MODL Voice ID: [id number] Report ID: [id number]
[2019-08-05] MEDS ORDERED: BRIMONIDINE TARTRATE EACH EYE SCH (21:00)
[2019-08-05] MEDS ORDERED: ATORVASTATIN 40 MG TAB PO SCH (21:00)
[2019-08-05] MEDS ORDERED: BIMATOPROST EACH EYE SCH (21:00)
[2019-08-06 03:54] VITALS: O2SAT 98
[2019-08-06] MEDS ORDERED: TERAZOSIN HCL 1 MG CAP PO SCH (09:00)
[2019-08-06] MEDS: AMLODIPINE 10 MG TAB PO SCH (09:08)
[2019-08-06] MEDS: ENOXAPARIN 40 MG/0.4 ML SQ SCH (09:09)
[2019-08-06] MEDS: NA CHLORIDE 0.9% 1,000 ML IV SCH (09:16)
[2019-08-06 12:17] VITALS: BP 157/84; TEMP 97.8
--- NOTE | 2019-08-06 20:59 | CON ---
Date of Consultation: 08/06/2019 Reason For Consultation: CVA. History Of Present Illness: Mr. Schulz is a very healthy 89-year-old gentleman who basically has a history of hypertension only, for which he takes Hytrin. He just restarted his Hytrin and he only h ad 2 dosages, came in with an episode of presyncope. So far, he had a normal echocardiogram, normal carotid Doppler, normal EKG, normal telemetry; however, an MRI showed a 3 cm nonhemorrhagic left medi al occipital lobe CVA, possibly secondary to left posterior cerebral artery atherosclerosis. The pat ient is asymptomatic now. No cardiac symptoms reported other than the initial presyncope. Past Medical History: As stated earlier. Medications: As stated earlier. Allergies: NONE. Review of Systems: Negative. Social History: Negative. Family History: Negative. Physical Examination: Vital Signs: Stable, afebrile. HEENT: Negative. Neck: Supple. No bruit. Chest: Clear. Cardiac: Revealed regular rhythm and rate. No murmurs, gallops, rubs. Abdomen: Benign. Extremities: Revealed no clubbing, cyanosis, or edema. Neurological: He is nonfocal. Diagnostic Data: As stated earlier. Impression And Plan: 1.Cerebrovascular accident syncope. 2.Hypertension. Patient will be awaiting neurological consultation. I believe the aspirin and stat ins should be the main therapy. If he has a stroke down the road, then we should consider doing an e vent monitor for about a week or a month to rule out atrial fibrillation. I will be happy to see him in the office as an outpatient. LEN/KRZYSZTOF Voice ID: [id number] Report ID: [id number]
--- NOTE | 2019-08-07 04:29 | DS ---
Date of Discharge: 08/06/2019 Consultants: Dr. Glasgow with Neurology; Dr. Olson with Cardiology. Admitting Diagnoses: 1.Syncope and collapse. 2.Accelerated hypertension. 3.Chronic kidney disease stage 3. Discharge Diagnoses: 1.Acute cerebrovascular accident, occipital lobe. 2.Accelerated hypertension, improved. 3.Syncope and collapse, resolved. 4.Chronic kidney disease, stage 3. Hospital Course: Patient is an 89-year-old male, comes into the hospital with loss of consciousness, syncopal type episode where the patient was nonresponsive. Initially, his blood pressure was in the low 100s. The patient was admitted to the hospital for further evaluation. He had a CT scan of the brain done initially, which was negative. Chest x-ray was also clear. He was worked up for stroke. Carotid artery ultrasound did not show any hemodynamically significant stenosis. Cardiology was al so consulted for cardiogenic cause of syncope. MRI of the brain was scheduled, unable to be done on the weekend, was done on the , showed occipital stroke. Patient was started on stroke guidelines . He did not have any deficits. Neurology was consulted. Patient was evaluated by speech therapy, occupational therapy, and physical therapy. He did well, did not require any rehabilitation on those 3 fronts. Patient was doing well. He was able to ambulate without difficulty. His MRA of the neck and brain were also done, which did not show any significant issues. The MRI of the brain had shown a 3 cm nonhemorrhagic CVA in the medial left occipital lobe correlating to the left posterior cerebr al artery territory. Patient was recommended to continue on Norvasc for his high blood pressure, how ever refused, stated that his blood pressure will then follow dramatically. He understands that elev ated blood pressure is a risk for recurrent strokes. He is agreeable to checking his blood pressure, keeping a manual, and following up with his primary care physician within a week to have his blood p ressure medications adjusted. His blood pressure has been ranging in the 150s systolic to 170s systo lic, improved from initial values of 190 systolic. Family is at the bedside. All questions were ans wered. Echocardiogram was also done, which did not show any significant abnormalities. Ejection fra ction was 72%, mitral annular calcification, aortic sclerosis with no stenosis or regurg, dilated lef t atrium, mild tricuspid regurg and mitral regurg. Patient was then discharged home in a stable cond ition to follow up with primary care physician in 2-3 days. Follow up with neurologist, Dr. Glasgow in 1 week. Follow up with paper cutter, Dr. Olson in 2 weeks. Return to ER for worsening conditi on. Diet: Heart healthy. Activity: As tolerated. Physical Examination: General: Awake, alert, and oriented x3, elderly male. CV: S1, S2. Respiratory: Moving air well bilaterally. Abdomen: Abdomen is soft, nontender, nondistended. Positive bowel sounds. Extremities: No clubbing, cyanosis, or edema. Neurologic: Nonfocal. Cranial nerves 2 through 12 intact grossly. Strength is symmetric in bilater al upper and lower extremities. Time Spent: Total time spent discharging the patient was 41 minutes. FORREST Voice ID: [id number] Report ID: [id number]
== END 2019-08-06 14:35 | disposition home or self-care (01) | DRG 66 ==
LOC: ER 14:00 → INTOOBSV 17:46 → ERHOLD 17:46 → OBSVTOIN 17:46 → 4TH 18:20 → OBSVTOIN 08-05 14:24
PROVIDERS: ADMIT Internal Medicine; ATTEND Internal Medicine
DX: I63.9 Cerebral infarction, unspecified (principal); I12.9 Hypertensive chronic kidney disease with stage 1 through stage 4 chronic kidney disease, or unspecified chronic kidney disease; N18.3 Chronic kidney disease, stage 3 (moderate)
CPT/HCPCS: 36415; 70450; 70544; 70549; 70551; 71045; 80048; 80061; 80076; 81003; 82947; 83735; 83880; 84100; 84443; 84484; 85025; 85610; 85730; 93005; 93306; 93880; 94760; 96365; 96372; 97161; 99285; A9577; G0378; J1650; J7030

== ENCOUNTER 2020-09-19 10:58 | Inpatient (IN) | payer OTHER, MEDICARE ==
--- OUTSIDE RECORDS SUMMARY | 2020-09-19 10:59 | XMS REPORT | Continuity of Care Document ---
:1930 Author Organization [facility] t Address [address] [place] [address] Care Team Providers Name Role Phone Teagan Sherman NP Attending Clinician Lindsay JAVED Attending Clinician Vtc-Lab Attending Clinician Unavailable Manish JAVED Attending Clinician Jaylon JAVED Attending Clinician Doctor Unassigned, Name Attending Clinician Unavailable Lindsay JAVED Admitting Clinician Problems This patient has no known problems. Allergies, Adverse Reactions, Alerts This patient has no known allergies or adverse reactions. Medications This patient has no known medications. Procedures This patient has no known procedures. Encounters Start End Encounter Admission Attending Care Care Encounter Source Date/Time Date/Time Type Type Clinicians Facility Department ID 2020-09-14 2020-09-17 [facility] Katelyn Sherman [facility] 1..840. 114 [id number] 17:19:00 16:35:00 Encounter Jesse Montoya [id number] [place] [id number] [place] [id number] 2020-09-04 2020-09-04 Metal Machine Setter Vtc-Lab [facility] 1..840.114 [id number] 09:19:48 09:34:48 Visit [facility] [id number] [place] [id number] ELIZABETH [id number] [facility] 2020-09-03 2020-09-03 [facility] ZARI Hammond [id number] 10:26:00 23:59:00 Encounter Timoteo Wang [id number] [facility] 4.2.7.2.686 [id number] 2020-09-01 2020-09-01 Office GEORGE Iyer [id number] 10:23:56 16:55:57 Visit Carmelina NEDRA [id number] [facility] 4.2.7.2.686 ELIZABETH [id number] [facility] 2011-08-22 2011-08-22 Orders Doctor IVAN [id number] 00:00:00 00:00:00 Only Unassigned, LILIANA [id number] [place] [facility] [id number] [id number] 2011-04-25 2011-04-25 Orders Doctor LOVE [id number] 00:00:00 00:00:00 Only Unassigned, LILIANA 350.1.13.10 [place] [facility] 4.2.7.2.686 [id number] 2011-03-03 2011-03-03 Orders Doctor LOVE [id number] 00:00:00 00:00:00 Only Unassigned, LILIANA 350.1.13.10 [place] [facility] 4.2.7.2.686 [id number] [id number] 2011-02-24 2011-02-24 Orders Doctor LOVE [id number] 00:00:00 00:00:00 Only Unassigned, LILIANA [id number] [place] [facility] [id number] [id number] [id number] 2010-03-03 2010-03-03 Orders Doctor LOVE [id number] 00:00:00 00:00:00 Only Unassigned, LILIANA [id number] [place] [facility] [id number] [id number] [id number] Results This patient has no known results.
--- OUTSIDE RECORDS SUMMARY | 2020-09-19 10:59 | XMS REPORT | Summary of Care ---
:1930 Author Organization [facility] - Health Address [address] [place] [address] Care Team Providers Name Role Phone Gordon Ochoa Primary Care Provider Encounter Details Date Type Department Care Team Description 08/18/2020 Orders Only [facility] Doctor Unassigned, No [address] [facility] [place] [address] [address] [place] [id number] Allergies Active Allergy Reactions Severity Noted Date Comments Ciprofloxacin Other - See comments Medium 03/15/2016 Tendon issues due to cipro Gatifloxacin Other - See comments Medium 03/15/2016 Makes p atient "feel bad" documented as of this encounter (statuses as of 08/18/2020) Medications Medication Sig Dispensed Refills Start Date End Date Status fexofenadine (VICENTE Take 180 mg by 0 Active ALLERGY) 180 mg tablet mouth daily. fluticasone 50 Use 1 [place] in 0 Active mcg/actuation nasal each nostril spray daily. terazosin (HYTRIN) 5 mg Take 5 mg by 0 Active capsule mouth as needed. desonide (DESOWEN) 0.05 Apply 1 g to 0 Active % cream affected area(s) as needed. BOSWELLIA TORI 2 capsules 0 A ctive EXTRACT (BOSWELLIA daily. TORI XT, BULK, MISC) brimonidine (ALPHAGAN P) Place 1 Drop in 0 Active 0.1 % ophthalmic drops both eyes 2 (two) times daily. bimatoprost (LUMIGAN) Place 1 Drop in 0 Active 0.01 % ophthalmic drops each eye at bedtime. pseudoephedrine Take 1 tablet by 0 Active (SUDAFED) 30 mg tablet mouth daily. 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 documented as of this encounter Last Filed Vital Signs Not on filedocumented in this encounter Plan of Treatment Date Type Specialty Care Team Description 08/18/2020 Office Visit Dermatology Robyn Finn MD [address] [place] [address] Carmelina Iyer MD [address] [place] [address]. [place] [address] 10/19/2020 Office Visit Dermatology Rudolph Hathaway MD [address] [facility] [address] [place], [place] [address] Health Maintenance Due Date Last Done Comments Depression Screening 1944 DTaP,Tdap,and Td Vaccines (1 - Tdap) 1951 Zoster Recombinant Vaccine (SHINGRIX) (1 of 2) 1982 Medicare Wellness Visit 1997 PNEUMOCOCCAL VACCINES 65+ (1 of 1 - PPSV23) 1997 INFLUENZA VACCINE (#1) 2020 documented as of this encounter Implants Implanted Type Area Drum Tester Device Shelf Model / Identifier Expiration Date Ser ial / Lot Acrysofiq Lens LENS Right: [place] 01/22/2021 SN60 WF / Implanted: Qty: 1 on 03/16/2016 by Griffin Herrera MD at [facility] 1 [id number] / [id number] 82 documented as of this encounter Procedures Procedure Name Priority Date/Time Associated Diagnosis Comme nts ASSIGNMENT OF BENEFITS Routine 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 [employer] sent [id number] LUCIEN RAHMAN [id number] [facility] [id number] 2015-Pre P[address] O[address] BOX [facility] sent [phone] Supplement MEDICARE [place] SUPPLEMENT LUCIEN BAUTISTA [id number] documented as of this encounter
--- OUTSIDE RECORDS SUMMARY | 2020-09-19 11:00 | XMS REPORT | Summary of Care ---
:1930 Author Organization [facility] - Health Address [address] [place] [address] Care Team Providers Name Role Phone Gordon Ochoa Primary Care Provider Reason for Visit Reason Comments LAB WORK Encounter Details Date Type Department Care Team Description 09/01/2020 [facility] Visit [facility] SERVICES [facility] Christin Finn MD [address] [place] [address] Pain, unspecified ; [facility] Rash and other nonspecific skin eruption [address] [place] [address] Allergies Active Allergy Reactions Severity Noted Date Comments Ciprofloxacin Other - See comments Medium 03/15/2016 Tendon issues due to cipro Gatifloxacin Other - See comments Medium 03/15/2016 Makes p atient "feel bad" documented as of this encounter (statuses as of 09/01/2020) Medications Medication Sig Dispensed Refills Start Date End Date Status fexofenadine (VICENTE Take 180 mg by 0 Active ALLERGY) 180 mg tablet mouth daily. 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 documented as of this encounter Last Filed Vital Signs Not on filedocumented in this encounter Nursing Notes Sally Quinn - 09/01/2020 2:45 PM CST Venipuncture collection performed by clean technique on the right anticubitus. Total of 1 attempts were made. Slight pressure and a bandage/dressing were applied to the site(s). The patient experiencedno complications. The following specimens were processed according to instructions and sent to [facility] laboratories per lab order on 09/01/2020: LT BLUE SST RED LAV 1 PPT DK GREEN (LiHep) DK GREEN (SodH) LAROSE DK BLUE (K2) DK BLUE (S) ACD Blood Culture NIPT/NTD Patient has been identified by and was provided with cup, antiseptic towelette, and clean catch instructions. 1 urine specimen(s) sent. Unpreserved Urine Culture 1 Aptima tube Other urine Patient provided with 1 STOOL PARA CHAD collection kit and associated instructions for home collection. documented in this encounter Plan of Treatment Date Type Specialty Care Team Description 09/15/2020 Office Visit Dermatology Rudolph Hathaway MD [address] [place], [place] [address] 10/19/2020 Office Visit Dermatology Rudolph Hathaway MD [address] [place], [place] [address] Name Type Priority Associated Diagnoses Date/Ti me URINE CULTURE LAB Routine Pain, unspecifie d 09/01/2020 1:06 PM ADJUNCT FACULTY Rash and other nonspecific s kin eruption CBC WITH DIFF LAB Routine Rash and other nonspecific skin 09/01/2020 1:20 PM ADJUNCT FACULTY eruption Health Maintenance Due Date Last Done Comments Depression Screening 1944 DTaP,Tdap,and Td Vaccines (1 - Tdap) 1951 Zoster Recombinant Vaccine (SHINGRIX) (1 of 2) 1982 Medicare Wellness Visit 1997 PNEUMOCOCCAL VACCINES 65+ (1 of 1 - PPSV23) 1997 INFLUENZA VACCINE (#1) 2020 documented as of this encounter Implants Implanted Type Area Camera Systems Engineer Device Shelf Model / Identifier Expiration Date Ser ial / Lot Acrysofiq Lens LENS Right: [place] 01/22/2021 SN60 WF / Implanted: Qty: 1 on 03/16/2016 by Griffin eHrrera MD at [facility] 1 [id number] / [id number] 1 82 documented as of this encounter Results Not on filedocumented in this encounter Visit Diagnoses Diagnosis Pain, unspecified Rash and other nonspecific skin eruption documented in this encounter Insurance Payer Benefit Plan / Subscriber ID Effective Phone Address T ype Group Dates MEDICARE MEDICARE PART [id number] 1997-Pre [phone] [address] edicare A & B sent [phone] LUCIEN RAHMAN [phone] [facility] [id number] 2015-Pre P[address] O. BOX [facility] sent [id number] Supplement MEDICARE [place] SUPPLEMENT LUCIEN BAUTISTA [id number] (Work) documented as of this encounter
--- OUTSIDE RECORDS SUMMARY | 2020-09-19 11:00 | XMS REPORT | Summary of Care ---
:1930 Author Organization [facility] Address [address] [place] [address] Care Team Providers Name Role Phone Gordon Ochoa Primary Care Provider Reason for Visit Reason Comments SPOTS arms Encounter Details Date Type Department Care Team Description 09/01/2020 Office Visit [facility] Robyn Finn MD [address] [place] [address] [facility]Primary Dx[facility] [address] [place] [address]. [place] [address] Prurigo nodularis; [facility] Sebaceous gland hyperplasia of face [address] [facility], [place] [address] Allergies Active Allergy Reactions Severity [...] tablet mouth daily. fluticasone 50 Use 1 [place] in 0 Active mcg/actuation nasal each nostril spray daily. terazosin (HYTRIN) 5 mg Take 5 mg by 0 Active capsule mouth as needed. desonide (DESOWEN) 0.05 Apply 1 g to 0 Active % cream affected area(s) as needed. BOSWELLIA TORI 2 capsules 0 A ctive EXTRACT (BOSWELLIA daily. TORI XT, BULK, MISC) brimonidine (ALPHAGAN Place 1 Drop in 0 Active P) 0.1 % ophthalmic both eyes 2 drops (two) times daily. bimatoprost (LUMIGAN) Place 1 Drop in 0 Active 0.01 % ophthalmic drops each eye at bedtime. pseudoephedrine Take 1 tablet 0 Active (SUDAFED) 30 mg tablet by mouth daily. permethrin 5 % Apply to 60 g 1 09/01/2020 09/01/2020 Act flakita creamIndications: Tinea area(s) once corporis now for 1 dose. 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 documented as of this encounter Last Filed Vital Signs Not on filedocumented in this encounter Progress Notes Julia Brown MA - 09/01/2020 10:30 AM CSTChace Schulz is a 89 year old male who presents today for concerns of spot check follow up. Patient is alert, ambulatory, and oriented. Medications and allergies have been reviewed. Patient has no complaint of pain. Patient's preferred language is [place] citizen. Vital signs deferred per provider. F REGISTERED NURSE Carmelina Iyer MD - 09/01/2020 10:30 AM CST CC: rash on arms HPI Chace Schulz is an 89 year old male, established patient, here today with his daughter for f/u evaluation and treatment of rash on bilateral forearms, ongoing for x months/years. Reports pruritis, stinging and pain. Patient reports picking at the skin. "Began as a streak" on L forearm and has since spread. During LV on 08/18/2020, patient was started on OTC Lamisil cream. Patient reports minimal improvement with aforementioned treatment. He has noticed new bumps to b/l arms L leg and attributes cause to 'parasites' infesting under the skin. He attempted to 'dig out' the bugs x days prior andnotes it resulted in some bleeding. He has blown some out of his nose and observed some from his oral mucous (described as 'bullfrog eggs' with black spot in the center). Daughter notes she has seen the patient 'pull out something from skin resembling a worm.' Daughter denies significant stressors at home. Histories Past Medical History: Diagnosis Date Cataract Gluten-sensitive enteropathy Hypertension Rosacea Seasonal allergies Wears partial dentures SH: Lives in [place] Allergies Allergies Allergen Reactions Ciprofloxacin Other - See comments Tendon issues due to cipro Tequin [Gatifloxacin] Other - See comments Makes patient "feel bad" Medications Current Outpatient Medications on File Prior to Visit Medication Sig Dispense Refill bimatoprost (LUMIGAN) 0.01 % ophthalmic drops Place 1 Drop in each eye at bedtime. BOSWELLIA TORI EXTRACT (BOSWELLIA TORI XT, BULK, Hedgeable) 2 capsules daily. brimonidine (ALPHAGAN P) 0.1 % ophthalmic drops Place 1 Drop in both eyes 2 (two) times daily. desonide (DESOWEN) 0.05 % cream Apply 1 g to affected area(s) as needed. fexofenadine (IVCENTE ALLERGY) 180 mg tablet Take 180 mg by mouth daily. fluticasone 50 mcg/actuation nasal spray Use 1 [place] in each nostril daily. pseudoephedrine (SUDAFED) 30 mg tablet Take 1 tablet by mouth daily. terazosin (HYTRIN) 5 mg capsule Take 5 mg by mouth as needed. No current facility-administered medications on file prior to visit. Review of Systems Constitutional: Pain (-) Skin: Itching (+), Rash (+), Growth (-) Physical Exam General: No acute distress MSK: able to move extremities Pulmonary: Breathing unlabored FACE: Positive RIGHT ARM: See image LEFT ARM: Positive Actinic Keratosis (A): erythematous scaling papules Sales Hemaniogioma (CH): smooth red and purple papules Dermatitis Erythema (DE): mild to moderate erythema and scaling Dermatitis Lichenified (DL): lichenification and thickening Dermatitis Weeping (DW): weeping and excoriation Inflamed Seborrheic Keratosis (ISK): inflamed warty brown papules and plaques Millium (ML): Small white cystic papule Molluscum Contagiosum (MC): umbilicated papule Nevus Macular (NM): well circumscribed evenly pigmented macule Nevus Papular (SPINNER TENDER): well circumscribed evenly pigmented papule Psoriasis Circumscribed (PC): well circumscribed erythema and scaling Psoriasis Diffuse (PD): diffuse patches of erythema and scaling Seborrheic Keratosis (SK): verrucous brown papules and plaques Scar (SR): cicatricial change Verruca Vulgarus (W): warty hyperkeratotic papule Assessment/Plan 1. Tinea Manus/Corporis - LUIS MANUEL + at previous visit - resolved s/p Lamisil cream - reassured patient 2. Prurigo Nodules 3. Excoriations - skin scraping performed to look for parasites, insects, and scabies negative today on 09/01/2020 and was negative on 08/18/20 - Discussed etiology and treatment options, including risks and benefits. - discussed very extensively with patient that no parasites seen on skin scrapings and on clinical examination. But will do testing to r/o parasites to complete work-up and empirically try Permethrin cream 5% but discussed with patient that if work-up is negative then need to be open to possibility that patient does not have parasites as this is opinion of Dr. Iyer and Dr. Finn; patient agrees to testing but he states he wants to see Dr. Hathaway as he saw him before in the past and was able to treat a groin rash and wants a second opinion from Dr. Hathaway - D/c OTC Lamisil cream. - Start Permethrin 5% cream and apply to skin from neck down in evening for 8-14 hours and wash off next morning. Repeat in one week. eRx sent. - Labs ordered today, 09/01/2020: CBC, Fecal OVA and parasite exam, urine culture 3. Sebaceous Hyperplasia - right nasal ala - benign; patient reassured RTC w/ Dr. Hathaway for second opinion per patient wishes Melisa Edwards, am scribing for, and in the presence of, Carmelina Iyer MD and Robyn Finn MD; Carmelina Iyer MD and Robyn Finn MD performed and/or ordered the services described here-in. Melisa Chandler 09/01/2020 10:29 I, Dr. Swami Iyer, personally performed and/or ordered the services described in this documentation, as scribed above by Melisa Chandler in my presence, and it is both accurate and complete. Swami Jaylon MD PGY 4 Dermatology Resident F REGISTERED NURSE documented in this encounter Plan of Treatment Date Type Specialty Care Team Description 09/01/2020 Office Automation Technician Visit Phlebotomy Mukul Finn MD [address] [place] [address] [phone] Pain, unspecified ; [facility]-Lab Rash and other nonspecific skin eruption 09/15/2020 Office Visit Dermatology Timoteo Hathaway MD [address] [facility] [address] [place] [address] 10/19/2020 Office Visit Dermatology Timoteo Hathaway MD [address] [facility] [address] [place] [address] Name Type Priority Associated Diagnoses Date/Ti me URINE CULTURE LAB Routine Pain, unspecifie d 09/01/2020 1:06 PM STAFF REGISTERED NURSE Rash and other nonspecific s kin eruption CBC WITH DIFF LAB Routine Rash and other nonspecific skin 09/01/2020 1:20 PM STAFF REGISTERED NURSE eruption Name Type Priority Associated Diagnoses Order S chedule URINE CULTURE LAB Routine Expected: 04/2020, Expires: 2020 CBC WITH DIFF LAB Routine Expected: 04/2020, Expires: 2020 OVA AND PARASITE EXAM LAB Routine Expect ed: 09/01/2020, FECAL Expires: 2020 Health Maintenance Due Date Last Done Comments Depression Screening 1944 DTaP,Tdap,and Td Vaccines (1 - Tdap) 1951 Zoster Recombinant Vaccine (SHINGRIX) (1 of 2) 1982 Medicare Wellness Visit 1997 PNEUMOCOCCAL VACCINES 65+ (1 of 1 - PPSV23) 1997 INFLUENZA VACCINE (#1) 2020 documented as of this encounter Implants Implanted Type Area Drawer In Dobby Loom Device Shelf Model / Identifier Expiration Date Ser ial / Lot Acrysofiq Lens LENS Right: [place] 01/22/2021 SN60 WF / Implanted: Qty: 1 on 03/16/2016 by Griffin Herrera MD at [facility] 1 [id number] / [id number] 82 documented as of this encounter Results Not on filedocumented in this encounter Visit Diagnoses Diagnosis Tinea corporis - Primary Dermatophytosis of the body 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 [employer] A & B sent [phone] [id number] LUCIEN RAHMAN [phone] [facility] [id number] 2015-Pre [address]OX [facility] sent [id number] Supplement MEDICARE [place] SUPPLEMENT LUCIEN BAUTISTA [id number] (Work) documented as of this encounter
--- OUTSIDE RECORDS SUMMARY | 2020-09-19 11:00 | XMS REPORT | Summary of Care ---
:1930 Author Organization [facility] Address [address] [place] [address] Care Team Providers Name Role Phone Gordon Ochoa Primary Care Provider Reason for Visit Reason Comments New Evaluation Encounter Details Date Type Department Care Team Description 08/18/2020 Office Visit [facility] Robyn Finn MD [address] [place] [address] Tinea corporis (Primary Dx); [facility] Carmel[facility] Iyer MD [address] [place] [address]. [place] [address] Actinic keratoses; [facility] Seborrheic keratoses; [address] [facility] Neoplasm o f uncertain behavior of skin South, [place] [address] Allergies Active Allergy Reactions Severity [...] tablet mouth daily. fluticasone 50 Use 1 [place] in 0 Active mcg/actuation nasal each nostril spray daily. terazosin (HYTRIN) 5 mg Take 5 mg by 0 Active capsule mouth as needed. desonide (DESOWEN) 0.05 Apply 1 g to 0 Active % cream affected area(s) as needed. BOSWELLIA TORI 2 capsules 0 A ctive EXTRACT (BOSWELLIA daily. TORI XT, BULK, [facility]) brimonidine (ALPHAGAN P) Place 1 Drop in 0 Active 0.1 % ophthalmic drops both eyes 2 (two) times daily. bimatoprost (LUMIGAN) Place 1 Drop in 0 Active 0.01 % ophthalmic drops each eye at bedtime. pseudoephedrine Take 1 tablet by 0 Active (SUDAFED) 30 mg tablet mouth daily. 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 documented as of this encounter Last Filed Vital Signs Not on filedocumented in this encounter Progress Notes Carmelina Iyer MD - 08/18/2020 10:45 AM CST CC: parasite on arms HPI Chace Schulz is an 89 year old male, new patient accompanied by daughter, here today for evaluation and treatment of "parasites" on bilateral forearms, ongoing for x months/years. Reports pruritis, stinging and pain on forearms but denies pruritis or stinging on hands. Patient reports picking at the skin. "Began as a streak" on L forearm. Patient is using Gold Ceron cream to prevent cracking skin. Denies new medication, laundry detergents, cosmetics, fabric softeners. No other treatments attempted. Otherwise, patient denies any other new, growing, changing skin lesions. No other skin concerns at this encounter. Histories Past Medical History: Diagnosis Date Cataract Gluten-sensitive enteropathy Hypertension Rosacea Seasonal allergies Wears partial dentures (-) personal history of skin cancer (+) personal history of precancers: patient has had lesions treated with LN2 in the past (-) family history of skin cancer Allergies Allergies Allergen Reactions Ciprofloxacin Other - See comments Tendon issues due to cipro Tequin [Gatifloxacin] Other - See comments Makes patient "feel bad" Medications Current Outpatient Medications on File Prior to Visit Medication Sig Dispense Refill bimatoprost (LUMIGAN) 0.01 % ophthalmic drops Place 1 Drop in each eye at bedtime. BOSWELLIA TORI EXTRACT (BOSWELLIA TORI XT, BULK, MISC) 2 capsules daily. brimonidine (ALPHAGAN P) 0.1 % ophthalmic drops Place 1 Drop in both eyes 2 (two) times daily. desonide (DESOWEN) 0.05 % cream Apply 1 g to affected area(s) as needed. fexofenadine (VICENTE ALLERGY) 180 mg tablet Take 180 mg by mouth daily. fluticasone 50 mcg/actuation nasal spray Use 1 [place] in each nostril daily. pseudoephedrine (SUDAFED) 30 mg tablet Take 1 tablet by mouth daily. terazosin (HYTRIN) 5 mg capsule Take 5 mg by mouth as needed. No current facility-administered medications on file prior to visit. Review of Systems Constitutional: Pain (-) Skin: Itching (+), Rash (-), Growth (-), Excoriations (+) Physical Exam General: No acute distress Psychiatric: Normal affect Pulmonary: Breathing unlabored FACE: Positive SCALP: Positive RIGHT ARM: See image LEFT ARM: Positive RIGHT LEG: Negative LEFT LEG: Positive Actinic Keratosis (A): erythematous scaling papules [...] well circumscribed evenly pigmented macule Nevus Papular (INSTRUCTOR BUS TROLLEY AND TAXI): well circumscribed evenly pigmented papule Psoriasis Circumscribed (PC): well circumscribed erythema and scaling Psoriasis Diffuse (PD): diffuse patches of erythema and scaling Seborrheic Keratosis (SK): verrucous brown papules and plaques Scar (SR): cicatricial change Verruca Vulgarus (W): warty hyperkeratotic papule Assessment/Plan 1. Tinea Manus/Corporis 2. Prurigo Nodules - LUIS MANUEL (+) - Discussed etiology and treatment options, including risks and benefits. - Start OTC Lamisil cream BID until resolved for a minimum of 2-3 weeks; if not improved then will do Lamisil 250 mg daily for 2 weeks - discussed that excoriated lesions are prurigo nodules and that no evidence of parasites seen but that fungus could be contributing to itching sensation 3. 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 - Continue to monitor for changes; plan to re-check at next visit 4. Actinic keratosis/es - Discussed diagnosis and treatment options. - Discussed relation to sun exposure and premalignant nature of lesions. - LN2 x 7 performed after obtaining verbal consent. - Discussed sun avoidance and protection. 5. Seborrheic Keratoses - Discussed likely etiology, expected course and management options with patient - Benign, reassurance offered RTC 2-3 weeks Jordyn Edwards, am scribing for, and in the presence of, Carmelina Iyer MD and Robyn Finn MD; Carmelina Iyer MD and Robyn Finn MD performed and/or ordered the services described here-in. Jordyn Nino 08/18/2020 11:01 I, Dr. Swami Iyer, personally performed and/or ordered the services described in this documentation, as scribed above by Jordyn Nino in my presence, and it is both accurate and complete. Swami Jaylon MD PGY 4 Dermatology Resident RONMENTAL GEOLOGIST documented in this encounter Plan of Treatment Date Type Specialty Care Team Description 09/01/2020 Office Visit Dermatology Naeem Iyer MD [address] [place] [address]. [place] [phone] 10/19/2020 Office Visit Dermatology Rudolph Hathaway MD [address] [place], [place] [address] Health Maintenance Due Date Last Done Comments Depression Screening 1944 DTaP,Tdap,and Td Vaccines (1 - Tdap) 1951 Zoster Recombinant Vaccine (SHINGRIX) (1 of 2) 1982 Medicare Wellness Visit 1997 PNEUMOCOCCAL VACCINES 65+ (1 of 1 - PPSV23) 1997 INFLUENZA VACCINE (#1) 2020 documented as of this encounter Implants Implanted Type Area Biomedical Scientist Device Shelf Model / Identifier Expiration Date Ser ial / Lot Acrysofiq Lens LENS Right: [place] 01/22/2021 SN60 WF / Implanted: Qty: 1 on 03/16/2016 by Griffin Herrera MD at [facility] Eye 1 [id number] / [id number] 82 documented as of this encounter Results Not on filedocumented in this encounter Visit Diagnoses Diagnosis Tinea corporis - Primary Dermatophytosis of the body Actinic keratoses Actinic keratosis Seborrheic keratoses Neoplasm of uncertain behavior of skin documented in this encounter Insurance Payer Benefit Plan / Subscriber ID Effective Phone Address T ype Group Dates MEDICARE MEDICARE PART [id number] 1997-Pre [phone] P. O. DEREK Tsai edicare A & B sent [phone] LUCIEN RAHMAN [phone] [facility] [id number] 2015-Pre P. O. BOX [facility] sent [id number] Supplement MEDICARE [place] SUPPLEMENT LUCIEN BAUTISTA [id number] (Work) documented as of this encounter
--- OUTSIDE RECORDS SUMMARY | 2020-09-19 11:00 | XMS REPORT | Summary of Care ---
:1932 Author Organization [facility] Address [address] [place] [address] Care Team Providers Name Role Phone Gordon Ochoa Primary Care Provider Reason for Visit Reason Comments SPOTS arms Encounter Details Date Type Department Care Team Description 09/01/2020 Office Visit [facility] Robyn Finn MD [address] [place] [address] Tinea corporis (Primary Dx); [facility] MD [address] [place] [address]. [place] [address] Prurigo nodularis; [facility] Sebaceous gland hyperplasia of face [address] [facility], [place] [address] Allergies Active Allergy Reactions Severity [...] tablet mouth daily. fluticasone 50 Use 1 [place] in 0 Active mcg/actuation nasal each nostril [...] with No / Unsure 09/01/2020 12:17 PM HEPATOLOGY PHYSICIAN someone who was confirmed or suspected to [...] complaint of pain. Patient's preferred language is french. Vital signs deferred per provider. TOLOGY PHYSICIAN Carmelina Iyer MD - 09/01/2020 10:30 AM [...] allergies Wears partial dentures SH: Lives in [place] Allergies Allergies Allergen Reactions Ciprofloxacin Other - See comments Tendon issues due to cipro Tequin [Gatifloxacin] Other - See comments Makes patient "feel bad" Medications Current Outpatient Medications on File Prior to Visit Medication Sig Dispense Refill bimatoprost (LUMIGAN) 0.01 % ophthalmic drops Place 1 Drop in each eye at bedtime. BOSWELLIA TORI EXTRACT (BOSWELLIA TORI XT, BULK, [place]) 2 capsules daily. brimonidine (ALPHAGAN P) 0.1 % ophthalmic drops Place 1 Drop in both eyes 2 (two) times daily. desonide (DESOWEN) 0.05 % cream Apply 1 g to affected area(s) as needed. fexofenadine (VICENTE ALLERGY) 180 mg tablet Take 180 mg by mouth daily. fluticasone 50 mcg/actuation nasal spray Use 1 [place] in each nostril daily. pseudoephedrine (SUDAFED) 30 [...] well circumscribed evenly pigmented macule Nevus Papular (LUMBER STACKER OPERATOR): well circumscribed evenly pigmented papule Psoriasis Circumscribed [...] Swami Jaylon MD PGY 4 Dermatology Resident TOLOGY PHYSICIAN documented in this encounter Plan of Treatment Date Type Specialty Care Team Description 09/01/2020 Hydraulic Riveter Visit Phlebotomy Mukul Finn MD [address] [place] [address] [phone] Pain, unspecified ; Vtc-Lab Rash and other nonspecific skin eruption 09/15/2020 Office Visit Dermatology Timoteo Hathaway MD [address] [facility] [address] [place] [address] 10/19/2020 Office Visit Dermatology Timoteo Hathaway MD [address] [facility] [address] [place] [address] 555 Name Type Priority Associated Diagnoses Date/Ti me URINE CULTURE LAB Routine Pain, unspecifie d 09/01/2020 1:06 PM HEPATOLOGY PHYSICIAN Rash and other nonspecific s kin eruption CBC WITH DIFF LAB Routine Rash and other nonspecific skin 09/01/2020 1:20 PM HEPATOLOGY PHYSICIAN eruption Name Type Priority Associated Diagnoses Order [...] of this encounter Implants Implanted Type Area Safety Manager Device Shelf Model / Identifier Expiration Date Ser ial / Lot Acrysofiq Lens LENS Right: [place] 01/22/2021 SN60 WF / Implanted: Qty: 1 on 03/16/2016 by Griffin Herrera MD at [facility] Eye 1 [id number] / [id number] 82 documented as of this encounter [...] T ype Group Dates MEDICARE MEDICARE PART [id number] 1997-Pre [phone] P. O. BOX edicare A & B sent [phone] LUCIEN RAHMAN [phone] [facility] [id number] 2015-Pre P[address] O. BOX [facility] sent [phone] Supplement MEDICARE [place] SUPPLEMENT LUCIEN BAUTISTA [id number] (Work) documented as of this encounter
--- OUTSIDE RECORDS SUMMARY | 2020-09-19 11:00 | XMS REPORT | Summary of Care ---
:1932 Author Organization [facility] Address [address] [place] [address] Care Team Providers Name Role Phone Gordon Ochoa Primary Care Provider Reason for Visit Reason Comments New Evaluation Encounter Details Date Type Department Care Team Description 08/18/2020 Office Visit [facility] Robyn Finn MD [address] [place] [address] Tinea corporis (Primary Dx); [facility] Carmelina yIer MD [address] [place] [address]. [place] [address] Actinic keratoses; [facility] Seborrheic keratoses; [address] [facility] Neoplasm o f uncertain behavior of skin South, [place] [address] Allergies Active Allergy Reactions Severity [...] tablet mouth daily. fluticasone 50 Use 1 [place] in 0 Active mcg/actuation nasal each nostril spray daily. terazosin (HYTRIN) 5 mg Take 5 mg by 0 Active capsule mouth as needed. desonide (DESOWEN) 0.05 Apply 1 g to 0 Active % cream affected area(s) as needed. BOSWELLIA TORI 2 capsules 0 A ctive EXTRACT (BOSWELLIA daily. 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 pseudoephedrine (SUDAFED) 30 [...] well circumscribed evenly pigmented macule Nevus Papular (RISK ADJUSTMENT SPECIALIST): well circumscribed evenly pigmented papule Psoriasis Circumscribed [...] Swami Jaylon MD PGY 4 Dermatology Resident ER AND GRAZIER documented in this encounter Plan of Treatment Date Type Specialty Care Team Description 09/01/2020 Office Visit Dermatology Naeem Iyer MD [address] [place] [address]. [place] [phone] 10/19/2020 Office Visit Dermatology Rudolph Hathaway MD [address] [place], [place] [address] Health Maintenance Due Date Last Done Comments Depression Screening 1944 DTaP,Tdap,and Td Vaccines (1 - Tdap) 1951 Zoster Recombinant Vaccine (SHINGRIX) (1 of 2) 1982 Medicare Wellness Visit 1997 PNEUMOCOCCAL VACCINES 65+ (1 of 1 - PPSV23) 1997 INFLUENZA VACCINE (#1) 2020 documented as of this encounter Implants Implanted Type Area Cloth Bleaching Supervisor Device Shelf Model / Identifier Expiration Date Ser ial / Lot Acrysofiq Lens LENS Right: [place] 01/22/2021 SN60 WF / Implanted: Qty: 1 on 03/16/2016 by Griffin Herrera MD at [facility] 1 [id number] / [id number] 82 documented as of this encounter Results Not on filedocumented in this encounter Visit Diagnoses Diagnosis Tinea corporis - Primary Dermatophytosis of the body Actinic keratoses Actinic keratosis Seborrheic keratoses Neoplasm of uncertain behavior of skin documented in this encounter Insurance Payer Benefit Plan / Subscriber ID Effective Phone Address T ype Group Dates MEDICARE MEDICARE PART [id number] 1997-Pre [phone] P. [address] DEREK Tsai edicare A & B sent [phone] LUCIEN RAHMAN [phone] [facility] [id number] 2015-Pre P[address] O. BOX [facility] sent [phone] Supplement MEDICARE [place] SUPPLEMENT LUCIEN BAUTISTA [id number] (Work) documented as of this encounter
--- OUTSIDE RECORDS SUMMARY | 2020-09-19 11:01 | XMS REPORT | Summary of Care ---
:1932 Author Organization [facility] Address [address] [place] [address] Care Team Providers Name Role Phone Gordon Ochoa Primary Care Provider Encounter Details Date Type Department Care Team Description 08/22/2011 Orders Only [facility] Doctor Unassigned, No [address] [place] [place] [address] 301 [place] [address] Allergies Active Allergy Reactions Severity Noted Date Comments Ciprofloxacin Other - See comments Medium 03/15/2016 Tendon issues due to cipro Gatifloxacin Other - See comments Medium 03/15/2016 Makes p atient "feel bad" documented as of this encounter (statuses as of 09/04/2020) Medications No known medicationsdocumented as of this encounter (statuses as of 09/04/2020) Active Problems No known active problemsdocumented as of this encounter (statuses as of 09/04/2020) Social History Tobacco Use Types Packs/Day Years Used Date Never Assessed Sex Assigned at Date Recorded Not on file COVID-19 Exposure Response Date Recorded In the last month, have you been in contact with No / Unsure 09/04/2020 9:19 AM 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 documented as of this encounter Last Filed Vital Signs Not on filedocumented in this encounter Plan of Treatment Date Type Specialty Care Team Description 09/15/2020 Office Visit Dermatology Rudolph Hathaway MD [address] [facility] [address] [place], [place] [address] 10/19/2020 Office Visit Dermatology Rudolph Hathaway MD [address] [place], [place] [address] [phone] Health Maintenance Due Date Last Done Comments Depression Screening 1944 DTaP,Tdap,and Td Vaccines (1 - Tdap) 1951 Zoster Recombinant Vaccine (SHINGRIX) (1 of 2) 1982 Medicare Wellness Visit 1997 PNEUMOCOCCAL VACCINES 65+ (1 of 1 - PPSV23) 1997 INFLUENZA VACCINE (#1) 2020 documented as of this encounter Implants Implanted Type Area Mechatronics Technician Device Shelf Model / Identifier Expiration Date Ser ial / Lot Acrysofiq Lens LENS Right: [place] 01/22/2021 SN60 WF / Implanted: Qty: 1 on 03/16/2016 by Griffin Herrera MD at [facility] Eye 1 [id number] / [id number] 82 documented as of this encounter Procedures Procedure Name Priority Date/Time Associated Diagnosis Comme nts DERMATOLOGY CLINIC NOTE Routine 08/22/2011 12:01 AM SOLAR SYSTEM DESIGNER documented in this encounter Results Not on filedocumented in this encounter Insurance Payer Benefit Plan / Subscriber ID Effective Dates Phone Addre ss Type Group MEDICARE MEDICARE PART [id number] 1997-Amee [phone] [address] DEREK Medicare A & B t 2 [id number] [place] [address] documented as of this encounter
--- OUTSIDE RECORDS SUMMARY | 2020-09-19 11:01 | XMS REPORT | Summary of Care ---
:1932 Author Organization [facility] Address [address] [place] [address] Care Team Providers Name Role Phone Gordon Ochoa Primary Care Provider Encounter Details Date Type Department Care Team Description 09/03/[address] [facility] LAB Specimen Timoteo Hammond, Ananth-Fredis cunningham MD [address] [place] [phone] [place] [address] Allergies Active Allergy Reactions Severity Noted Date Comments Ciprofloxacin Other - See comments Medium 03/15/2016 Tendon issues due to cipro Gatifloxacin Other - See comments Medium 03/15/2016 Makes p atient "feel bad" documented as of this encounter (statuses as of 09/11/2020) Medications Medication Sig Dispensed Refills Start Date End Date Status fexofenadine (VICENTE Take 180 mg by 0 Active ALLERGY) 180 mg tablet mouth daily. fluticasone 50 Use 1 [place] in 0 Active mcg/actuation nasal each nostril [...] as of this encounter (statuses as of 09/11/2020) Active Problems No known active problemsdocumented as of this encounter (statuses as of 09/11/2020) Social History Tobacco Use Types Packs/Day Years Used Date Never Smoker Smokeless Tobacco: Never Used Alcohol Use Drinks/Week oz/Week Comments No 0 Standard drinks or equivalent 0.0 Sex Assigned at Date Recorded Not on file COVID-19 Exposure Response Date Recorded In the last month, have you been in contact with No / Unsure 09/01/2020 12:17 PM ICU CLERK someone who was confirmed or suspected to have Coronavirus / COVID-19? documented as of this encounter Last Filed Vital Signs Not on filedocumented in this encounter Plan of Treatment Date Type Specialty Care Team Description 09/15/2020 Office Visit Dermatology Rudolph Hathaway MD [address] [place] [address] 10/19/2020 Office Visit Dermatology Rudolph Hathaway MD [address] [place] [address] Health Maintenance Due Date Last Done Comments Depression Screening 1944 DTaP,Tdap,and Td Vaccines (1 - Tdap) 1951 Zoster Recombinant Vaccine (SHINGRIX) (1 of 2) 1982 Medicare Wellness Visit 1997 PNEUMOCOCCAL VACCINES 65+ (1 of 1 - PPSV23) 1997 INFLUENZA VACCINE (#1) 2020 documented as of this encounter Implants Implanted Type Area Drywall Worker Device Shelf Model / Identifier Expiration Date Ser ial / Lot Acrysofiq Lens LENS Right: [place] 01/22/2021 SN60 WF / Implanted: Qty: 1 on 03/16/2016 by Griffin Herrera MD at [facility] Eye 1 [id number] / [id number] 1 82 documented as of this encounter Results Not on filedocumented in this encounter Insurance Payer Benefit Plan / Subscriber ID Effective Phone Address T ype Group Dates MEDICARE MEDICARE PART [id number] 1997-Pre [phone] [address] [employer] B sent [phone] LUCIEN RAHMAN [phone] [facility] [id number] 2015-Pre [address] O[address] BOX [facility] sent [phone] Supplement MEDICARE [place] SUPPLEMENT LUCIEN BAUTISTA [id number] (Work) documented as of this encounter
--- OUTSIDE RECORDS SUMMARY | 2020-09-19 11:01 | XMS REPORT | Summary of Care ---
:1932 Author Organization [facility] - [facility] Address [address] [place] [address] Care Team Providers Name Role Phone Gordon Ochoa Primary Care Provider Reason for Visit Reason Comments LAB WORK Encounter Details Date Type Department Care Team Description 09/04/2020 Physical Science Teacher Visit LAB SERVICES AT [facility] Christin Finn MD [address] [place] [address] Rash and other MULTISPECIALTY [facility] nonspecific skin [address] [place] [address] Allergies Active Allergy Reactions Severity Noted Date Comments Ciprofloxacin Other - See comments Medium 03/15/2016 Tendon issues due to cipro Gatifloxacin Other - See comments Medium 03/15/2016 Makes p atient "feel bad" documented as of this encounter (statuses as of 09/04/2020) Medications Medication Sig Dispensed Refills Start Date End Date Status fexofenadine (VICENTE Take 180 mg by 0 Active ALLERGY) 180 mg tablet mouth daily. fluticasone 50 Use 1 [place] in 0 Active mcg/actuation nasal each nostril [...] with No / Unsure 09/04/2020 9:19 AM MANAGER CANCER someone who was confirmed or suspected to have Coronavirus / COVID-19? documented as of this encounter Last Filed Vital Signs Not on filedocumented in this encounter Nursing Notes Jennie Lynn - 09/04/2020 12:45 PM CSTStool dropped off documented in this encounter Plan of Treatment Date Type Specialty Care Team Description 09/15/2020 Office Visit Dermatology Rudolph Hathaway MD [address] [facility] [address] [place] [address] 10/19/2020 Office Visit Dermatology Rudolph Hathaway MD [address] [place] [address] Health Maintenance Due Date Last Done Comments Depression Screening 1944 DTaP,Tdap,and Td Vaccines (1 - Tdap) 1951 Zoster Recombinant Vaccine (SHINGRIX) (1 of 2) 1982 Medicare Wellness Visit 1997 PNEUMOCOCCAL VACCINES 65+ (1 of 1 - PPSV23) 1997 INFLUENZA VACCINE (#1) 2020 documented as of this encounter Implants Implanted Type Area Dental Secretary Device Shelf Model / Identifier Expiration Date Ser ial / Lot Acrysofiq Lens LENS Right: [place] 01/22/2021 SN60 WF / Implanted: Qty: 1 on 03/16/2016 by Griffin Herrera MD at [facility] Eye 1 [id number] / [id number] 82 documented as of this encounter Results Not on filedocumented in this encounter Visit Diagnoses Diagnosis Rash and other nonspecific skin eruption documented in this encounter Insurance Payer Benefit Plan / Subscriber ID Effective Phone Address T ype Group Dates MEDICARE MEDICARE PART [id number] 1997-Pre [phone] [address] edicare A & B sent [phone] LUCIEN RAHMAN [phone] [facility] [id number] 2015-Pre [address] O[address] BOX [facility] sent [id number] Supplement MEDICARE [place] SUPPLEMENT LUCIEN BAUTISTA [id number] (Work) documented as of this encounter
--- OUTSIDE RECORDS SUMMARY | 2020-09-19 11:01 | XMS REPORT | Summary of Care ---
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 documented as of this encounter Last Filed Vital Signs Not on filedocumented in this encounter Plan of Treatment Date Type Specialty Care Team Description 09/15/2020 Office Visit Dermatology Rudolph Hathaway MD [address] [place], [place] [address] 10/19/2020 Office Visit Dermatology Rudolph Hathaway MD [address] [place], [place] [address] [phone] Health Maintenance Due Date Last Done Comments Depression Screening 1944 DTaP,Tdap,and Td Vaccines (1 - Tdap) 1951 Zoster Recombinant Vaccine (SHINGRIX) (1 of 2) 1982 Medicare Wellness Visit 1997 PNEUMOCOCCAL VACCINES 65+ (1 of 1 - PPSV23) 1997 INFLUENZA VACCINE (#1) 2020 documented as of this encounter Implants Implanted Type Area Set Up Mechanic Device Shelf Model / Identifier Expiration Date Ser ial / Lot Acrysofiq Lens LENS Right: [place] 01/22/2021 SN60 WF / Implanted: Qty: 1 on 03/16/2016 by Griffin Herrera MD at [facility] Eye 1 [id number] / [id number] 82 documented as of this encounter Procedures Procedure Name Priority Date/Time Associated Diagnosis Comme nts DERMATOLOGY CLINIC NOTE Routine 03/03/2011 12:01 AM CDT documented in this encounter Results Not on filedocumented in this encounter Insurance Payer Benefit Plan / Subscriber ID Effective Dates Phone Addre ss Type Group MEDICARE MEDICARE PART [id number] 1997-Amee [phone] [address] Medicare A & B t 2 [id number] [place] [address] documented as of this encounter
--- OUTSIDE RECORDS SUMMARY | 2020-09-19 11:01 | XMS REPORT | Summary of Care ---
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 documented as of this encounter Last Filed Vital Signs Not on filedocumented in this encounter Plan of Treatment Date Type Specialty Care Team Description 09/15/2020 Office Visit Dermatology Rudolph Hathaway MD [address] [facility] [address] [place], [place] [address] 10/19/2020 Office Visit Dermatology Rudolph Hathaway MD [address] [place], [place] [address] Health Maintenance Due Date Last Done Comments Depression Screening 1944 DTaP,Tdap,and Td Vaccines (1 - Tdap) 1951 Zoster Recombinant Vaccine (SHINGRIX) (1 of 2) 1982 Medicare Wellness Visit 1997 PNEUMOCOCCAL VACCINES 65+ (1 of 1 - PPSV23) 1997 INFLUENZA VACCINE (#1) 2020 documented as of this encounter Implants Implanted Type Area Impersonator Character Device Shelf Model / Identifier Expiration Date Ser ial / Lot Acrysofiq Lens LENS Right: [place] 01/22/2021 SN60 WF / Implanted: Qty: 1 on 03/16/2016 by Griffin Herrera MD at [facility] Eye 1 [id number] / [id number] 82 documented as of this encounter Procedures Procedure Name Priority Date/Time Associated Diagnosis Comme nts DERMATOLOGY CLINIC NOTE Routine 03/03/2010 12:01 AM CDT documented in this encounter Results Not on filedocumented in this encounter Insurance Payer Benefit Plan / Subscriber ID Effective Dates Phone Addre ss Type Group MEDICARE MEDICARE PART [id number] 1995-Amee [phone] Medicare A & B t [id number] [place] [phone] documented as of this encounter
--- OUTSIDE RECORDS SUMMARY | 2020-09-19 11:01 | XMS REPORT | Summary of Care ---
:1930 Author Organization [facility] Address [address] [place] [address] Care Team Providers Name Role Phone Gordon Ochoa Primary Care Provider Reason for Visit Reason Comments SPOTS arms Encounter Details Date Type Department Care Team Description 09/01/2020 Office Visit [facility] Robyn Abreu MD [address] [place] [address] [facility]inea [facility]is (Primary Dx[facility] [address] [place] [address]. [place] [address] Prurigo nodularis; [facility] Sebaceous gland hyperplasia of face [address] [facility], [place] [address] Allergies Active Allergy Reactions Severity [...] tablet mouth daily. fluticasone 50 Use 1 [place] in 0 Active mcg/actuation nasal each nostril [...] with No / Unsure 09/01/2020 12:17 PM CANVAS BASTER someone who was confirmed or suspected to [...] complaint of pain. Patient's preferred language is greenlandic. Vital signs deferred per provider. AS BASTER Carmelina Iyer MD - 09/01/2020 10:30 AM [...] out something from skin resembling a worm.' He states there are bugs coming out in his urine and in his feces. Daughter denies significant stressors at home. Denies any new meds prior tothis. Histories Past Medical History: Diagnosis Date Cataract Gluten-sensitive enteropathy Hypertension Rosacea Seasonal allergies Wears partial dentures SH: Lives in [place] Allergies Allergies Allergen Reactions Ciprofloxacin Other - See comments Tendon issues due to cipro Tequin [Gatifloxacin] Other - See comments Makes patient "feel bad" Medications Current Outpatient Medications on File Prior to Visit Medication Sig Dispense Refill bimatoprost (LUMIGAN) 0.01 % ophthalmic drops Place 1 Drop in each eye at bedtime. BOSWELLIA TORI EXTRACT (BOSWELLIA TORI XT, BULK, Personal Estate ManagerC) 2 capsules daily. brimonidine (ALPHAGAN P) 0.1 % ophthalmic drops Place 1 Drop in both eyes 2 (two) times daily. desonide (DESOWEN) 0.05 % cream Apply 1 g to affected area(s) as needed. fexofenadine (VICENTE ALLERGY) 180 mg tablet Take 180 mg by mouth daily. fluticasone 50 mcg/actuation nasal spray Use 1 [place] in each nostril daily. pseudoephedrine (SUDAFED) 30 [...] well circumscribed evenly pigmented macule Nevus Papular (RESPIRATORY THERAPIST): well circumscribed evenly pigmented papule Psoriasis Circumscribed [...] is opinion of Dr. Iyer and Dr. Abreu; patient agrees to testing but he states he wants to see Dr. Hathaway as he saw him before in the past and was able to treat a groin rash and wants a second opinion from Dr. Hathaway - D/c [facility] Lamisil cream. - Start Permethrin 5% cream and apply to skin from neck down in evening for 8-14 hours and wash off next morning. Repeat in one week. eRx sent. -Advised patient can bring in samples of the parasites he seen and we can send to pathology to determine if this is skin debris vs. Arthropod. - Labs ordered today, 09/01/2020: CBC (check WBC and eosinophils), Fecal OVA and parasite exam, urineculture -Future plan: can consider other causes of neuropathic induced sensations - check B12 level. 3. Sebaceous Hyperplasia - right nasal ala - benign; patient reassured RTC w/ Dr. Hathaway for second opinion per patient wishes I, Melisa Chandler, am scribing for, and in the presence of, Carmelina Iyer MD and Robyn Abreu MD; Carmelina Iyer MD and Robyn Abreu MD performed and/or ordered the services described here-in. Melisa Chandler 09/01/2020 10:29 I, Dr. Swami Iyer, personally performed and/or ordered the services described in this documentation, as scribed above by Melisa Chandler in my presence, and it is both accurate and complete. Swami Jaylon MD PGY 4 Dermatology Resident I personally examined the patient and agree with Dr. Swami Iyer's resident note, as scribed byMelisa Chandler in my presence. I actively participated in the decision-making process. Please see the resident's note for additional details. ROBYN ABREU MD 09/01/2020 11:56 PM Dermatology AS BASTER documented in this encounter Miscellaneous Notes Addendum Note - Robyn Abreu MD - 09/01/2020 10:30 AM CANVAS BASTER Addended by: ROBYN ABREU MD on: 09/01/2020 11:58 PM Modules accepted: Level of Service AS BASTER documented in this encounter Plan of Treatment Date Type Specialty Care Team Description 09/15/2020 Office Visit Dermatology Rudolph Hathaway MD [address] [place] [address] 10/19/2020 Office Visit Dermatology Rudolph Hathaway MD [address] [place] [address] Name Type Priority Associated Diagnoses Date/Ti me URINE CULTURE LAB Routine Pain, unspecifie d 09/01/2020 1:06 PM CANVAS BASTER Rash and other nonspecific s kin eruption Name Type Priority Associated Diagnoses Order S chedule URINE CULTURE LAB Routine Expected: 04/2020, Expires: 2020 OVA [...] of this encounter Implants Implanted Type Area Assembler Convertible Top Device Shelf Model / Identifier Expiration Date Ser ial / Lot Acrysofiq Lens LENS Right: [place] 01/22/2021 SN60 WF / Implanted: Qty: 1 on 03/16/2016 by Griffin Herrera MD at [facility] Eye 1 [id number] / [id number] 82 documented as of this encounter Results CBC WITH DIFF (09/01/2020 1:20 PM CANVAS BASTER) Pathologist [facility] nature WBC 7.50 4.20 - 10.70 [facility] 10*3/L [facility] RBC 5.04 4.26 - 5.52 [facility] 10*6/L [facility] HGB 15.5 12.2 - 16.4 [facility] g/dL [facility] HCT 48.0 38.4 - 49.3 % [facility] MCV 95.2 81.7 - 95.6 fL [facility] MCH 30.8 26.1 - 32.7 pg [facility] MCHC 32.3 31.2 - 35.0 [facility] g/dL [facility] RDW-SD 47.1 38.5 - 51.6 fL [facility] RDW-CV 13.2 12.1 - 15.4 % [facility]T 252 150 - 328 [facility] 10*3/L [facility] MPV 10.4 9.8 - 13.0 fL [facility] NRBC/100 WBC 0.0 0.0 - 10.0 /100 [facility] WBCs [facility] NRBC x10^3 <0.01 10*3/L [facility] GRAN MAT (NEUT) % 50.9 % [facility] IMM GRAN % 0.30 % [facility] LYMPH % 31.3 % [facility] MONO % 7.5 % [facility] EOS % 8.8 % [facility] BASO % 1.2 % [facility] GRAN MAT x10^3(ANC) 3.82 1.99 - 6.95 [facility] 10*3/uL [facility] IMM GRAN x10^3 <0.03 0.00 - 0.06 [facility] 10*3/uL [facility] LYMPH x10^3 2.35 1.09 - 3.23 [facility] 10*3/uL [facility] MONO x10^3 0.56 0.36 - 1.02 [facility] 10*3/uL [facility] EOS x10^3 0.66 (H) 0.06 - 0.53 [facility] 10*3/uL [facility] BASO x10^3 0.09 0.01 - 0.09 [facility] 10*3/uL [facility] Specimen Blood - ARM, RIGHT Performing Organization Address City/State/Zipcode Phone Number [facility] CLIA: [id number] [place] [address] 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 [employer] sent [phone] [place]CI[place] [phone] [employer] [id number] 2015-Pre [address] [facility] [place] sent [phone] Supplement MEDICARE [place] SUPPLEMENT LUCIEN BAUTISTA [id number] (Work) documented as of this encounter
--- OUTSIDE RECORDS SUMMARY | 2020-09-19 11:01 | XMS REPORT | Summary of Care ---
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 documented as of this encounter Last Filed Vital Signs Not on filedocumented in this encounter Plan of Treatment Date Type Specialty Care Team Description 09/15/2020 Office Visit Dermatology Rudolph Hathaway MD [address] [facility] [address] [place], [place] [address] 10/19/2020 Office Visit Dermatology Rudolph Hathaway MD [address] [place] [address] [phone] Health Maintenance Due Date Last Done Comments Depression Screening 1944 DTaP,Tdap,and Td Vaccines (1 - Tdap) 1951 Zoster Recombinant Vaccine (SHINGRIX) (1 of 2) 1982 Medicare Wellness Visit 1997 PNEUMOCOCCAL VACCINES 65+ (1 of 1 - PPSV23) 1997 INFLUENZA VACCINE (#1) 2020 documented as of this encounter Implants Implanted Type Area Cycle Repairer Device Shelf Model / Identifier Expiration Date Ser ial / Lot Acrysofiq Lens LENS Right: [place] 01/22/2021 SN60 WF / Implanted: Qty: 1 on 03/16/2016 by Griffin Herrera MD at [facility] Eye 1 [id number] / [id number] 82 documented as of this encounter Procedures Procedure Name Priority Date/Time Associated Diagnosis Comme nts DERMATOLOGY CLINIC NOTE Routine 02/24/2011 12:01 AM CDT documented in this encounter Results Not on filedocumented in this encounter Insurance Payer Benefit Plan / Subscriber ID Effective Dates Phone Addre ss Type Group MEDICARE MEDICARE PART [id number] 1995-Amee [phone] [address] Medicare A & B t 2 [id number] [employer] [phone] documented as of this encounter
--- OUTSIDE RECORDS SUMMARY | 2020-09-19 11:01 | XMS REPORT | Summary of Care ---
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 documented as of this encounter Last Filed Vital Signs Not on filedocumented in this encounter Plan of Treatment Date Type Specialty Care Team Description 09/15/2020 Office Visit Dermatology Rudolph Hathaway MD [address] [facility] [address] [address] [place], [place] [address] 10/19/2020 Office Visit Dermatology Rudolph Hathaway MD [address] [place], [place] [address] [phone] Health Maintenance Due Date Last Done Comments Depression Screening 1944 DTaP,Tdap,and Td Vaccines (1 - Tdap) 1951 Zoster Recombinant Vaccine (SHINGRIX) (1 of 2) 1982 Medicare Wellness Visit 1997 PNEUMOCOCCAL VACCINES 65+ (1 of 1 - PPSV23) 1997 INFLUENZA VACCINE (#1) 2020 documented as of this encounter Implants Implanted Type Area Emergency Management Specialist Device Shelf Model / Identifier Expiration Date Ser ial / Lot Acrysofiq Lens LENS Right: [place] 01/22/2021 SN60 WF / Implanted: Qty: 1 on 03/16/2016 by Griffin Herrera MD at [facility] Eye 1 [id number] / [id number] 82 documented as of this encounter Procedures Procedure Name Priority Date/Time Associated Diagnosis Comme nts DERMATOLOGY CLINIC NOTE Routine 04/25/2011 12:01 AM CDT documented in this encounter Results Not on filedocumented in this encounter Insurance Payer Benefit Plan / Subscriber ID Effective Dates Phone Addre ss Type Group MEDICARE MEDICARE PART [id number] 1997-Amee [phone] [address] Medicare A & B t 2 [id number] [place] [phone] documented as of this encounter
--- OUTSIDE RECORDS SUMMARY | 2020-09-19 11:03 | XMS REPORT | Summary of Care ---
:1930 Author Organization [facility] Address [address] [place] [address] Care Team Providers Name Role Phone Gordon Villatoro Primary Care Provider Reason for Referral (Routine) Status Reason Specialty Diagnoses / Referred By Referred To Procedures Contact Contact New Request Pulmonary Diagnoses Elevated blood pressure reading in office with diagnosis of hypertension Jerel Crespo, Disease Procedures Consult/Referral Post-C[facility] [address] [place] [phone] (Routine) Status Reason Specialty Diagnoses / Referred By Contact Refe rred To Procedures Contact New Request Diagnoses Elevated blood pressure reading in office with diagnosis of hypertension Jerel Crespo MD Barr, David Procedures Discharge Follow-up: PCP RICCI VILLATORO; 4-[address] [place] [address] [phone] Phone: [place] [phone] MRI/CAT Scan (STAT) Status Reason Specialty Diagnoses / Referred By Referred To Procedures Contact Contact New Request Diagnostic Diagnoses SOB (shortness of breath) Jesse Montoya, Radiology Procedures CT CHEST PULMONARY ANGIOGRAM CT ANGIOGRAM CHEST [address] [place] [address]. [address] [place] [address] (Routine) Status Reason Specialty Diagnoses / Referred By Referred To Procedures Contact Contact New Request Echocardiograph Diagnoses NSTEMI (non-ST elevated myocardial infarction) Jesse Montoya, Procedures ECHO ROUTINE W/DOPPLER COLOR [address] [place] [address]. [address] [place] [address] Radiology Services (STAT) Status Reason Specialty Diagnoses / Referred By Referred To Procedures Contact Contact New Request Diagnostic Diagnoses SOB (shortness of breath) Katelyn Sherman Radiology Procedures XR CHEST 1 VW G, CHARGER TESTER [address] [facility]3] [id number] [place] [address] Reason for Visit Reason Comments Shortness of Breath Auth/Cert Status Reason Specialty Diagnoses / Referred By Referred To Procedures Contact Contact Emergency Medicine Ad[facility] Em ergency Dept [address] [place] [phone] Fax: Encounter Details Date Type Department Care Team Description 09/14/2020 - [facility] ADC Intensive Care Connor Sherman a G, CHARGER TESTER [address] [facility] [id number] [place] [address] [id number] COVID-19 virus 09/17/2020 Encounter Unit Jesse Montoya MD [address] [place] [address]. [address] [place], [place] 595375 infection [address] [place] [address] Allergies Active Allergy Reactions Severity Noted Date Comments Ciprofloxacin Other - See comments Medium 03/15/2016 Tendon issues due to cipro Gluten Unknown - See comments 09/17/2020 Gatifloxacin Other - See comments Medium 03/15/2016 Makes p atient "feel bad" documented as of this encounter (statuses as of 09/17/2020) Medications Medication Sig Dispensed Refills Start Date End Date Status fexofenadine Take 180 mg by 0 Ac tive (VICENTE ALLERGY) mouth daily. 180 mg tablet fluticasone 50 Use 1 Gibson in 0 Active mcg/actuation nasal each nostril spray daily. desonide (DESOWEN) Apply 1 g to 0 Active 0.05 % cream affected area(s) as needed. BOSWELLIA TORI 2 capsules 0 A ctive EXTRACT (BOSWELLIA daily. TORI XT, [place], [facility]) brimonidine Place 1 Drop 0 Activ e (ALPHAGAN P) 0.1 % in both eyes 2 ophthalmic drops (two) times daily. bimatoprost Place 1 Drop 0 Activ e (LUMIGAN) 0.01 % in each eye at ophthalmic drops bedtime. valsartan 80 mg Take 80 mg by 0 Active tablet mouth daily. netarsudiL-latanopro Place [address] (ROCKLATAN) in each eye at 0.02-0.005 % Drop bedtime. aspirin 81 mg Take 1 tablet 30 tablet 0 09/17/2020 A ctive chewable by mouth tabletIndications: daily. Elevated blood pressure reading in office with diagnosis of hypertension lactobacillus Take 1 tablet 60 tablet 0 09/17/2020 A ctive acidophilus 25 by mouth 2 million cell -100 mg (two) times captabIndications: daily. Elevated blood pressure reading in office with diagnosis of hypertension metoprolol succinate Take 1 tablet 60 tablet 0 09/17/2020 Active XL 25 mg 24 hr by mouth 2 tabletIndications: (two) times Elevated blood daily. pressure reading in office with diagnosis of hypertension azithromycin 250 mg Take 1 tablet 3 tablet 0 09/17/202009/20 Active tabletIndications: by mouth daily 0 Elevated blood for 3 days. pressure reading in office with diagnosis of hypertension dexAMETHasone 6 mg Take 1 tablet 6 tablet 0 09/17/2020 Active tabletIndications: by mouth daily 0 Elevated blood with breakfast pressure reading in for 6 days. office with diagnosis of hypertension ascorbic acid, Take 1 tablet 30 tablet 0 09/17/2020 Active vitamin C, 500 mg by mouth tabletIndications: daily. Elevated blood pressure reading in office with diagnosis of hypertension ergocalciferol, Take 1 capsule 12 capsule 0 09/17/2020 Active vitamin d2, 1,250 by mouth mcg (50,000 unit) weekly. capsuleIndications: Elevated blood pressure reading in office with diagnosis of hypertension zinc sulfate 220 Take 1 capsule 60 capsule 0 09/17/2020 Active (50) mg by mouth 2 capsuleIndications: (two) times Elevated blood daily. pressure reading in office with diagnosis of hypertension terazosin (HYTRIN) 5 Take 5 mg by 0 Discontinued mg capsule mouth as 0 needed. pseudoephedrine Take 1 tablet 0 Discontinued (SUDAFED) 30 mg by mouth 0 tablet daily. documented as of this encounter (statuses as of 09/17/2020) Active Problems Problem Noted Date COVID-19 virus infection 09/15/2020 Pneumonia due to COVID-19 virus 09/15/2020 Elevated brain natriuretic peptide (BNP) level 020 Acute diastolic congestive heart failure 09/15/2020 Essential hypertension 09/15/2020 Paroxysmal atrial fibrillation with RVR 09/15/2020 NSTEMI (non-ST elevated myocardial infarction) 020 documented as of this encounter (statuses as of 09/17/2020) Immunizations Name Administration Dates Next Due Influenza High Dose Quad 05/14/2020 documented as of this encounter Social History Tobacco Use Types Packs/Day Years Used Date Never Smoker Smokeless Tobacco: Never Used Alcohol Use Drinks/Week oz/Week Comments No 0 Standard drinks or equivalent 0.0 Sex Assigned at Date Recorded Not on file COVID-19 Exposure Response Date Recorded In the last month, have you been in contact with No / Unsure 09/14/2020 5:35 PM LOCKSTITCH CO[employer] JOINER someone who was confirmed or suspected to have Coronavirus / COVID-19? documented as of this encounter Last Filed Vital Signs Vital Sign Reading Time Taken Comments Blood Pressure 117/76 09/17/2020 2:06 PM LOCKST[employer] Pulse 74 09/17/2020 2:06 PM LOCKSTITCH [employer] JOIN[employer] Temperature 36.5 C (97.7 F) 09/17/2020 12:30 PM LOCKSTITCH [employer] JOINER Respiratory Rate 21 09/17/2020 2:06 PM LOCKSTITCH COAT JOINER Oxygen Saturation 97% 09/17/2020 11:31 AM LOCKSTITCH COAT JOINER Inhaled Oxygen Concentration - - Weight 80.7 kg (178 lb) 09/17/2020 5:00 AM LOCKSTITCH COAT JOINER Height 177.8 cm (5' 10") 09/14/2020 11:14 PM LOCKSTITCH COAT JOINER Body Mass Index 25.54 09/14/2020 11:14 PM LOCKSTITCH COAT JOINER documented in this encounter Discharge Instructions AppointmentsPeace Gomez LMSW - 09/16/2020 10:36 AM [facility] suggests that you schedule a hospital follow up visit with your Primary Care Provider, Ricci Davis MD and with a Insole Coverer. To schedule with a Insole Coverer at [facility], please call [phone] to secure an appointment. STITCH COAT JOINER AttachmentsThe following attachments cannot be sent through Care Everywhere. Caring for Someone Who Has COVID-19 (Czech)Coronavirus Disease 2019 (COVID-19)- Overview (Czech)Human Coronaviruses (Czech)Azithromycin tablets (Czech)Metoprolol extended-release tablets (Czech)Dexamethasone tablets (Czech)Ascorbic Acid, Vitamin C tablet (Czech)Lactobacillus Oral formulations (Czech)Ergocalciferol, Vitamin D2 tablets or capsules (Czech) documented in this encounter Progress Notes Paulina Toro MD - 09/17/2020 1:03 PM CST Pt doing better No new issues reported Vitals: 09/17/20 0730 09/17/20 0800 09/17/20 1131 09/17/20 1230 BP: (!) 145/74 BP Location: Right arm Pulse: 79 Resp: Temp: 36.4 C (97.6 F) 36.5 C (97.7 F) TempSrc: Oral Oral SpO2: 96% 95% 97% Weight: Height: Limited exam sec to COVID CBC WBC (10*3/L) Date Value 09/17/2020 15.35 (H) RBC (10*6/L) Date Value 09/17/2020 5.24 PLT (10*3/L) Date Value 09/17/2020 291 HGB (g/dL) Date Value 09/17/2020 16.0 HCT (%) Date Value 09/17/2020 46.6 CMP NA (mmol/L) Date Value 09/17/2020 130 (L) K (mmol/L) Date Value 09/17/2020 4.7 CALCIUM (mg/dL) Date Value 09/17/2020 8.2 (L) CL (mmol/L) Date Value 09/17/2020 98 BUN (mg/dL) Date Value 09/17/2020 26 (H) CREATININE (mg/dL) Date Value 09/17/2020 0.75 GLUCOSE (mg/dL) Date Value 09/17/2020 119 (H) CO2 TOTAL (mmol/L) Date Value 09/17/2020 27 ALBUMIN (g/dL) Date Value 09/17/2020 2.7 (L) T PROTEIN (g/dL) Date Value 09/17/2020 5.5 (L) TOTAL BILI (mg/dL) Date Value 09/17/2020 1.0 ALT(SGPT) (U/L) Date Value 03/07/2016 24 ALTv (U/L) Date Value 09/17/2020 24 AST(SGOT) (U/L) Date Value 09/17/2020 57 (H) ALK PHOS (U/L) Date Value 09/17/2020 57 Current Facility-Administered Medications: traMADoL (ULTRAM) tablet 50 mg, 50 mg, Oral, Q6HPRN, Jerel Crespo MD NaCl 0.9% (NS) IV infusion 1,000 mL, 1,000 mL, IV Infusion, CONTINUOUS, Jerel Crespo MD, Last Rate: 75 mL/hr at 09/16/20 2100, 1,000 mL at 09/16/202099 sodium chloride tablet 1 g, 1 g, Oral, BID, Jerel Crespo MD, 1 g at 09/17/20 0803 albuterol-ipratropium (COMBIVENT RESPIMAT) 20-100 mcg/actuation inhaler 1 Puff, 1 Puff, Inhalation, QID, Jesse Montoya MD, 1 Puff at 09/17/20 112 aspirin chewable tablet 81 mg, 81 mg, Oral, QAM WITH BREAKFAST, Jesse Montoya MD, 81 mg at 09/17/20802 atorvastatin (LIPITOR) tablet 40 mg, 40 mg, Oral, QHS, Jesse Montoya MD, 40 mg at 09/16/202035 azithromycin (ZITHROMAX) 500 mg in NaCl 0.9% (NS) 250 mL VIAL-MATE IV piggyback, 500 mg, IV Piggyback, Q24H ABX, Jesse Montoya MD, 500 mg at 09/17/20428 dexamethasone (DECADRON) 6 mg in NaCl 0.9% (NS) piggyback, 6 mg, IV Piggyback, QHS, Jesse Montoya MD, 6 mg at 09/16/202035 docusate (COLACE) capsule 100 mg, 100 mg, Oral, BID, Jesse Montoya MD, 100 mg at 09/17/20 0803 enoxaparin (LOVENOX) injection 40 mg, 40 mg, Subcutaneous, Q12H ABX, Jesse Montoya MD, 40 mg at 09/17/20 0429 lactobacillus acidophilus (ACIDOPHILLUS) 25 million cell -100 mg captab 1 tablet, 1 tablet, Oral, BID, Jesse Montoya MD, 1 tablet at 09/17/20 0803 metoprolol succinate XL (TOPROL XL) tablet 25 mg, 25 mg, Oral, BID, Jesse Montoya MD, 25 mg at 09/17/20 0804 ondansetron (ZOFRAN (PF)) injection 4 mg, 4 mg, Slow IV Push, Q6HPRN, Jesse Montoya MD Impression : Hyponatremia sec to hypovolemia improving COVID 19 pneumonia Htn type2 NSTEMI Atrial fibrillation rate controlled Plan : OK to resume htn meds Sodium improving Ok to be discharged and follow up with PCP Jett Gonzalez PTA - 09/17/2020 1:01 PM [employer] Physical Therapy Progress Note: Discharge Recommendations: Therapy Needs and Potential: decline in gait and/or balance and decreased endurance Challenges to Home Transition: increased risk of falls Equipment recommendations: no device PAIN: denies pain PRECAUTIONS: Weight Bearing Precaution: NA General Precautions: PPE used:Gloves, Surgical mask and N-95 Mask, Fall, IV 3lpm per NC, oxygen: Nasal canula Bracing/Cast present or required:N/A S: Patient agreeable to working with PT. Patient primarily c/o fatigue. He stated he feels he can function at home and make light meals. O: Patient met Semi reclined in bed. Patient seen for the following: Bed mobility: Supine-sit: Modified independent Transfers: Sit to stand: Modified independent using no device Stand to sit: Modified independent using no device Gait: Assisted patient with ambulation as follows: 50 feet using no device and Independent. (in room due to isolation status) Therapeutic exercise: instructed patient in the following: B UE/LE AROM, seated, in all available planes x 10 reps After session, patient Up in chair and call moon provided. RN aware A: Patient tolerated session well. Gait is steady with slow edson and shortened stride length. Bed mobility and transfers are Mod I. No c/o increased SOB with activity. Good mobility overall with decreased endurance.. P: PT will continue POC with emphasis on gait, transfers and functional mobility. Total Timed Tx Codes in Minutes: 24 Min Total Treatment Time in Minutes: 24 Min Jett Bolton PTA Anselmo Lic [id number] [facility] Rehab Services ADC [phone] Lila Garcia, PT supv rasaaye, Mahad Pardo MD - 09/17/2020 9:24 AM CST [facility] Cardiology progress note Date of Service: 09/17/2020 Chace Schulz is a 89 year old male hospitalized for hospitalized for COVID infection. No Afibon telemetry. PHYSICAL EXAM Vitals: 09/17/20 0400 09/17/20 0500 09/17/20 0730 09/17/20 0800 BP: (!) 187/84 (!) 145/74 BP Location: Right arm Pulse: 80 79 Resp: 20 19 Temp: 36.2 C (97.2 F) 36.4 C (97.6 F) TempSrc: Temporal Artery Oral SpO2: 98% 96% 95% Weight: 80.7 kg (178 lb) Height: Exam is limited due to COVID19 status ENT: normocephalic atraumatic GI: non-distended : not examined Neuro: no gross deficits noted. Medications: I have reviewed the patient's medications; see Medication Reconciliation. Labs: I have reviewed the patient's labs. CBC BMP PT/INR WBC (10*3/L) Date Value 09/17/2020 15.35 (H) NA (mmol/L) Date Value 09/17/2020 130 (L) No results found for: PT PLT (10*3/L) Date Value 09/17/2020 291 K (mmol/L) Date Value 09/17/2020 4.7 INR (no units) Date Value 09/15/2020 1.2 HGB (g/dL) Date Value 09/17/2020 16.0 BUN (mg/dL) Date Value 09/17/2020 26 (H) HCT (%) Date Value 09/17/2020 46.6 CREATININE (mg/dL) Date Value 09/17/2020 0.75 LIPID PROFILE GLUCOSE (mg/dL) Date Value 09/17/2020 119 (H) CHOL (mg/dL) Date Value 09/15/2020 116 (L) TSH LDL CHOL (mg/dL) Date Value 09/15/2020 75 TSH (mIU/L) Date Value 09/15/2020 2.18 CARDIAC ENZYMES HDL (mg/dL) Date Value 09/15/2020 24 (L) CK (U/L) Date Value 09/15/2020 138 TRIG (mg/dL) Date Value 09/15/2020 83 LFTs No results found for: CKMB AST(SGOT) (U/L) Date Value 09/17/2020 57 (H) TROPONIN I (ng/mL) Date Value 09/16/2020 0.039 (H) ALT(SGPT) (U/L) Date Value 03/07/2016 24 ALTv (U/L) Date Value 09/17/2020 24 No results found for: BNP LDL CHOL (mg/dL) Date Value 09/15/2020 75 Recent Labs 09/16/20 0436 TROPNI 0.039* Recent Labs 09/15/20 0444 TRIG 83 LDL CHOL (mg/dL) Date Value 09/15/2020 75 NT-proBNP (pg/mL) Date Value 09/14/2020 735 (H) Echo 08/2020 Interpretation Summary A complete two-dimensional transthoracic echocardiogram was performed (2D, M- mode, Doppler and colorflow Doppler). There is no comparison study available. The study was technically difficult. Left ventricular systolic function is normal. Diastolic function is impaired relaxation. The right ventricle is normal in size and function. The left atrium is mildly dilated. RVSP: 28 + RAP. IVC not well seen. ASSESSMENT AND PLAN Principal Problem: COVID-19 virus infection Active Problems: NSTEMI (non-ST elevated myocardial infarction) Pneumonia due to COVID-19 virus Elevated brain natriuretic peptide (BNP) level Acute diastolic congestive heart failure Essential hypertension Paroxysmal atrial fibrillation with RVR COVID 19 pneumonia: As per primary team Troponin elevation: likely type 2 KS due to demand ischemia from COVID infection. Continue ASA. Echoresults reviewed. Preserved LV systolic function. Elevated BNP: Rpt NT pro BNP today. Likely mild acute diastolic HF in the setting of COVID pneumonia. Diureses as needed. Daily weights. Afib with RVR: First episode: Converted spontaneously. Continue metoprolol XL 25 mg twice daily and ASA 81 daily. If recurs, will consider anticoagulation. No recurrence. Recommend outpatient event monitor to assess for burden and reoccurrence HTN: Elevated. Continue metoprolol XL 25 twice daily. If persistently elevated, home dose of valsartan may be restarted. Dyslipidemia: On atorvastatin 40 mg daily Phillip Saldivar MD 09/17/2020 9:24 AM Digital Data Analyst, Division of Cardiology [facility] [employer] Jerel Crespo MD - 09/16/2020 12:57 PM CST [facility] Hospitalist Progress Note SUBJECTIVE: No acute events. Overall feels better. CURRENT MEDICATIONS - reviewed. Current Facility-Administered Medications Medication Dose Route Frequency Last Rate Last Admin NaCl 0.9% (NS) IV infusion 1,000 mL 1,000 mL IV Infusion CONTINUOUS 75 mL/hr at 09/16/20 1236 1,000 mL at 09/16/20 1236 sodium chloride tablet 1 g 1 g Oral BID albuterol-ipratropium (COMBIVENT RESPIMAT) 20-100 mcg/actuation inhaler 1 Puff 1 Puff Inhalation QID 1 Puff at 09/16/20 1120 aspirin chewable tablet 81 mg 81 mg Oral QAM WITH BREAKFAST 81 mg at 09/16/20 0816 atorvastatin (LIPITOR) tablet 40 mg 40 mg Oral QHS 40 mg at 09/15/202038 azithromycin (ZITHROMAX) 500 mg in NaCl 0.9% (NS) 250 mL VIAL-MATE IV piggyback 500 mg IV Piggyback Q24H ABX 500 mg at 09/16/20446 dexamethasone (DECADRON) 6 mg in NaCl 0.9% (NS) piggyback 6 mg IV Piggyback QHS 6 mg at 09/15/202039 docusate (COLACE) capsule 100 mg 100 mg Oral BID Stopped at 09/15/202007 enoxaparin (LOVENOX) injection 40 mg 40 mg Subcutaneous Q12H ABX 40 mg at 09/16/20 0447 lactobacillus acidophilus (ACIDOPHILLUS) 25 million cell -100 mg captab 1 tablet 1 tablet Oral BID 1 tablet at 09/16/20 0816 metoprolol succinate XL (TOPROL XL) tablet 25 mg 25 mg Oral BID 25 mg at 09/16/20 0816 ondansetron (ZOFRAN (PF)) injection 4 mg 4 mg Slow IV Push Q6HPRN PHYSICAL EXAM: BP 122/64 | Pulse 79 | Temp 36.9 C (98.5 F) (Oral) | Resp 18 | Ht 5' 10" (1.778 m) | Wt 178lb 8 oz (81 kg) | SpO2 93% | BMI 25.61 kg/m General: No respiratory distress HEENT: Anicteric sclerae, NCAT Lungs: Symmetric expansion Cardio: RRR Skin: No rash or lesions Neuro: AAOx3, no focal deficits Psych: Normal affect LABS/IMAGING - reviewed, pertinent results as below: CBC BMP PT/INR WBC (10*3/L) Date Value 09/16/2020 11.51 (H) NA (mmol/L) Date Value 09/16/2020 129 (L) No results found for: PT RBC (10*6/L) Date Value 09/16/2020 5.42 K (mmol/L) Date Value 09/16/2020 4.6 INR (no units) Date Value 09/15/2020 1.2 PLT (10*3/L) Date Value 09/16/2020 250 CALCIUM (mg/dL) Date Value 09/16/2020 8.5 (L) HGB (g/dL) Date Value 09/16/2020 16.4 CL (mmol/L) Date Value 09/16/2020 93 (L) aPTT HCT (%) Date Value 09/16/2020 48.4 BUN (mg/dL) Date Value 09/16/2020 25 (H) No results found for: APTTPAT CREATININE (mg/dL) Date Value 09/16/2020 0.77 IMAGING- Hospital Encounter on 09/14/20 CT CHEST PULMONARY ANGIOGRAM Narrative HISTORY: Positive d-dimer, rule out P.E. TECHNIQUE: Contrast-enhanced 64-mutidetector CT scan of the chest was completed with intravenous injection of non ionic contrast medium. Subsequently numerous sagittal, coronal and MIP reformations were generated. FINDINGS: Included portions of the thyroid gland appear normal. Trachea and central bronchial airways appear unremarkable. No acute pulmonary thromboembolism detected. No aortic aneurysm or aortic dissection. Moderate generalized triple vessel coronary atherosclerosis is noted. Scattered slightly enlarged lymph nodes are seen surrounding the sheldon and in the subcarinal space. Bilateral groundglass hazy pulmonary infiltrates are seen, predominantly peripherally based. No pneumothorax or pleural effusion or pericardial effusion. No aggressive bone lesions. Thoracic degenerative spondylosis noted. Visualized upper abdominal organs are unremarkable. CONCLUSIONS: 1. No acute pulmonary thromboembolism. 2. Moderate bilateral pulmonary airspace disease, consistent with possibility of COVID-19 infection. Please correlate. XR CHEST 1 VW Narrative PROCEDURE: XR CHEST 1 VW CLINICAL INDICATION: sob TECHNIQUE: Frontal chest radiograph was obtained. COMPARISON: None FINDINGS: Bilateral patchy hazy opacities, right greater than left with scattered septal thickening. No pleural effusion or pneumothorax is seen. The heart is normal in size. No acute bony abnormality is noted. Impression Bilateral patchy hazy airspace opacities, which can be seen in the setting of atypical infectious process, such as COVID-19. Disclaimer: Generally, the findings on chest imaging in COVID-19 are not specific, and overlap with other infections, including influenza, H1N1, SARS and MERS. According to the Centers for Disease Control (CDC) and recent statement of the [place] [employer], viral testing remains the only specific method of diagnosis. Confirmation with the viral test is required, even if radiologic findings are suggestive of COVID-[address]. Preliminary Report Dictated by Resident: Glenroy Singletary I, Shaan Chandler MD., have reviewed this study and agree with the above report. 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 Sanchez Nephrology consult Dr. Sun IV normal saline Urine studies IV azithromycin day 3 IV decadron day [address] CT chest negative for PE dvt propho lovenox 40 mg BID, increase based on above Full code, advance care planning discussed for 18 minutes, surrogate decision maker daughter who lives with him PT consult, SW consult HTN Start metoprlol xl Hold valsartan Prophylaxis: DVT- enoxaparin Stress Ulcer: no indication for prophylaxis Code Status: Full Disposition: Home tomorrow if stable Jerel Crespo MD Peace Louise LMSW - 09/16/2020 10:36 AM CSTSummary: Inpatient Scheduling NUTRITION INTERN spoke with Chace Schulz prior to discharge to assist with scheduling hospital follow up appointments. Pt reports that he needs to see his schedule and speak with his youngest daughter, Nikki, to coordinate transportation to and from an appointment before he can schedule. Pt reports he will schedule allappointments once he is at home. NUTRITION INTERN provided instructions on how to schedule with a [facility] Insole Coverer on AVS per patient request. Will document referrals once they are made available. Peace Gomez LMSW [facility] - [facility] Population [facility] Jacobo Courtney MD - 09/16/2020 8:29 AM CST [facility] Cardiology progress note Date of Service: 09/16/2020 Chace Schulz is an 89 years old male hospitalized for COVID infection. No Afib on telemetry. PHYSICAL EXAM Vitals: 09/16/20 0000 09/16/20 0424 09/16/20 0725 09/16/20 0803 BP: 102/70 (!) 164/92 (!) 152/80 BP Location: Right arm Pulse: 79 80 76 83 Resp: 18 15 20 Temp: 37.1 C (98.7 F) 36.5 C (97.7 F) 36.4 C (97.6 F) TempSrc: Oral Tympanic SpO2: 98% 95% 100% 92% Weight: Height: Exam is limited due to COVID Constitutional: no apparent distress ENT: normocephalic atraumatic GI: non-distended : not examined Medications: I have reviewed the patient's medications; see Medication Reconciliation. Labs: I have reviewed the patient's labs. ASSESSMENT AND PLAN Principal Problem: COVID-19 virus infection Active Problems: NSTEMI (non-ST elevated myocardial infarction) Pneumonia due to COVID-19 virus Elevated brain natriuretic peptide (BNP) level Acute diastolic congestive heart failure Essential hypertension Paroxysmal atrial fibrillation with RVR COVID 19 pneumonia--per primary team Troponin elevation--likely type 2 KS due to demand ischemia from COVID infection. Continue ASA. ECHOshowed normal LVEF and wall motion. Elevated BNP--Likely mild acute diastolic HF in the setting of COVID pneumonia. CXR is more consistent with infection. He received 1 dose of IV lasix. Will diureses as needed. Daily I/O. Daily weight. 1 episode of Afib with RVR--converted. Continue metoprolol and ASA. If recurs, will consider anticoagulation. No recurrence. HTN--His BP control now is acceptable with some fluctuation. Continue metoprolol. Adjust as needed. Jacobo Sanchez MD, FACC, FA[place] Digital Data Analyst, Division of Cardiology [facility] [facility] Jerel Larson MD - 09/15/2020 7:11 PM CST [facility] Hospitalist Progress Note SUBJECTIVE: No acute events. Overall feels better. CURRENT MEDICATIONS - reviewed. Current Facility-Administered Medications Medication Dose Route Frequency Last Rate Last Admin albuterol-ipratropium (COMBIVENT RESPIMAT) 20-100 mcg/actuation inhaler 1 Puff 1 Puff Inhalation QID 1 Puff at 09/15/20 1532 aspirin chewable tablet 81 mg 81 mg Oral QAM WITH BREAKFAST 81 mg at 09/15/20 0911 atorvastatin (LIPITOR) tablet 40 mg 40 mg Oral QHS 40 mg at 09/15/20 0423 azithromycin (ZITHROMAX) 500 mg in NaCl 0.9% (NS) 250 mL VIAL-MATE IV piggyback 500 mg IV Piggyback Q24H ABX 500 mg at 09/15/20 0424 dexamethasone (DECADRON) 6 mg in NaCl 0.9% (NS) piggyback 6 mg IV Piggyback QHS 6 mg at 09/15/20 0425 docusate (COLACE) capsule 100 mg 100 mg Oral BID enoxaparin (LOVENOX) injection 40 mg 40 mg Subcutaneous Q12H ABX 40 mg at 09/15/20 1723 lactobacillus acidophilus (ACIDOPHILLUS) 25 million cell -100 mg captab 1 tablet 1 tablet Oral BID 1 tablet at 09/15/20 0911 metoprolol succinate XL (TOPROL XL) tablet 25 mg 25 mg Oral BID Stopped at 09/15/20 0800 NaCl 0.9% (NS) IV infusion 1,000 mL 1,000 mL IV Infusion CONTINUOUS 42 mL/hr at 09/15/20 0455 1,000 mL at 09/15/20 0455 ondansetron (ZOFRAN (PF)) injection 4 mg 4 mg Slow IV Push Q6HPRN PHYSICAL EXAM: BP (!) 150/90 | Pulse 78 | Temp 36.9 C (98.4 F) (Oral) | Resp 20 | Ht 5' 10" (1.778 m) | Wt178 lb 8 oz (81 kg) | SpO2 95% | BMI 25.61 kg/m General: No respiratory distress HEENT: Anicteric sclerae, NCAT Lungs: Symmetric expansion Cardio: RRR Skin: No rash or lesions Neuro: AAOx3, no focal deficits Psych: Normal affect LABS/IMAGING - reviewed, pertinent results as below: CBC BMP PT/INR WBC (10*3/L) Date Value 09/15/2020 7.46 NA (mmol/L) Date Value 09/15/2020 127 (L) No results found for: PT RBC (10*6/L) Date Value 09/15/2020 5.27 K (mmol/L) Date Value 09/15/2020 3.6 INR (no units) Date Value 09/15/2020 1.2 PLT (10*3/L) Date Value 09/15/2020 225 CALCIUM (mg/dL) Date Value 09/15/2020 8.2 (L) HGB (g/dL) Date Value 09/15/2020 16.1 CL (mmol/L) Date Value 09/15/2020 90 (L) aPTT HCT (%) Date Value 09/15/2020 46.9 BUN (mg/dL) Date Value 09/15/2020 24 (H) No results found for: APTTPAT CREATININE (mg/dL) Date Value 09/15/2020 0.90 IMAGING- Hospital Encounter on 09/14/20 CT CHEST PULMONARY ANGIOGRAM Narrative HISTORY: Positive d-dimer, rule out P.E. TECHNIQUE: Contrast-enhanced 64-mutidetector CT scan of the chest was completed with intravenous injection of non ionic contrast medium. Subsequently numerous sagittal, coronal and MIP reformations were generated. FINDINGS: Included portions of the thyroid gland appear normal. Trachea and central bronchial airways appear unremarkable. No acute pulmonary thromboembolism detected. No aortic aneurysm or aortic dissection. Moderate generalized triple vessel coronary atherosclerosis is noted. Scattered slightly enlarged lymph nodes are seen surrounding the sheldon and in the subcarinal space. Bilateral groundglass hazy pulmonary infiltrates are seen, predominantly peripherally based. No pneumothorax or pleural effusion or pericardial effusion. No aggressive bone lesions. Thoracic degenerative spondylosis noted. Visualized upper abdominal organs are unremarkable. CONCLUSIONS: 1. No acute pulmonary thromboembolism. 2. Moderate bilateral pulmonary airspace disease, consistent with possibility of COVID-19 infection. Please correlate. XR CHEST 1 VW Narrative PROCEDURE: XR CHEST 1 VW CLINICAL INDICATION: sob TECHNIQUE: Frontal chest radiograph was obtained. COMPARISON: None FINDINGS: Bilateral patchy hazy opacities, right greater than left with scattered septal thickening. No pleural effusion or pneumothorax is seen. The heart is normal in size. No acute bony abnormality is noted. Impression Bilateral patchy hazy airspace opacities, which can be seen in the setting of atypical infectious process, such as COVID-19. Disclaimer: Generally, the findings on chest imaging in COVID-19 are not specific, and overlap with other infections, including influenza, H1N1, SARS and MERS. According to the Centers for Disease Control (CDC) and recent statement of the [employer] [place] [employer], viral testing remains the only specific method of diagnosis. Confirmation with the viral test is required, even if radiologic findings are suggestive of COVID-[address]. Preliminary Report Dictated by Resident: Glenroy Singletary I, Shaan Chandler MD., have reviewed this study and agree with the above report. 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 Sanchez Nephrology consult Dr. Sun, unclear fluid status, start gentle hydration and possibly stop tomorrow Urine studies IV azithromycin day 2 IV decadron day 2 CT chest negative for PE dvt propho lovenox 40 mg BID, increase based on above Full code, advance care planning discussed for 18 minutes, surrogate decision maker daughter who lives with him PT consult, SW consult Qualifies for home O2 HTN Start metoprlol xl Hold valsartan Prophylaxis: DVT- enoxaparin Stress Ulcer: no indication for prophylaxis Code Status: Full Disposition: Home tomorrow if stable Jerel Crespo MD Jett Gonzalez PTA - 09/15/2020 5:36 PM CST09/15/2020 5:36 PM Physical Therapy Note: Assisted supervising Physical Therapist with initial Evaluation. Supervising Therapist was present for entire Evaluation. Jett Bolton PTA [facility] Lic [id number] [facility] Rehab Services [facility] [phone] Lila Garcia PT supv Bernard Estes RN - 09/15/2020 1:56 PM CSTCare Management Social Functional Assessment Patient Name: Chace Schulz Age: [age] year old Sex: male Previous admit date: N/A Current diagnosis and co-morbidities: NSTEMI Readmission Questions: Was patient discharged from any acute care hospital within the last 30 days: No Social Functional Assessment: Primary language spoken/preferred: Czech Mental Status: Alert & Oriented to Person,Place & Time Information given by: Self Patient's support system: Child Name and number of support system: Vickie Byrne child [phone] 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 MPOA: Same as support system Living Arrangement: Home Address of living arrangement : [address] [place] [address] [place] Persons living in home: Self Barriers to returning home: None Baseline functional status- ambulation: Independent Functional status-baseline personal care: Independent Baseline functional status- driving: Independent Baseline functional status- grocery shopping: Independent Functional status-baseline housekeeping: Independent Functional status-baseline meal prep: Independent Current functional status same as prior: Yes Do you have a PCP?: Yes Name of PCP: [facility] Agency: No(Refused set up) Provider Services: No DME Company: No Equipment: Cane Hemodialysis: No Funding Resources: Medicare A & B;Supplement/Secondary Prescription coverage plan: Medicare Part D Pharmacy where meds are filled: ([facility]) Expected mode of discharge transportation: Same as support system Additional info required for discharge planning: Pending medical evaluation Recommended discharge plan: DME Referral;Home SFA Complete: Social Functional Assessment complete: Yes Alcohol Use Screening (AUDIT-C) How often do you have a drink containing alcohol?: Never SCORE: 0 Role of Care Management explained. Yes Any issues or concerns with obtaining/affording your medications at home: no. Are you or your support system able to brain picker medications at discharge: yes. Describe: Bernard Abarca RN, BSN [facility] Buckle Stringer O [phone] F [phone] . ernard Abarca RN - 09/15/2020 1:53 PM CSTHome O2 DME orders faxed over to [employer] [employer] [place] [place] [facility] Patient P: [phone], awaiting auth. 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 Zac Bejarano RN - 09/15/2020 9:48 AM MAHSA VALERIO MD, YAMAN, after reviewing this case with the Buckle Stringer, I concur this case is appropriate for inpatient admission. The change to inpatient admission is based on the level of care this patient is receiving, medical necessity, risks associated and the expected duration of stay. The inpatient admission order has been entered. Dilshad Benitez RN BSN Utilization Management P [phone] F [phone] [employer] Associated attestation - Jerel Cresop MD - 09/15/2020 9:55 AM CSTattested documented in this encounter H&P Notes Jesse Montoya MD - 09/14/2020 11:30 PM CST General Internal Medicine Admission History & Physical CHIEF COMPLAINT: dyspnea, fevers/chills History of Present Illness 89 y/o male presents with worsening symptoms of covid that was diagnosed a week ago. Patient having fevers/chills (101 F at home), dyspnea worsening with exertion, decreaesd appetite, nausea, headache and loss of taste. Patient saturating 90-91% on RA. Patient denies chest pain, syncope, dizziness, vision changes, focal weakness, syncope, leg edema, orthopnea, dysuria, hematuria, diarrhea, abd pain, rash, itching, confusion, falls, hemoptysis. Elevated D-dimer, troponin, creatinine, BNP Decreased sodium covid positive CXR b/l opacities PAST MEDICAL HISTORY Past Medical History: Diagnosis Date Cataract CKD (chronic kidney disease) Gluten-sensitive enteropathy Hypertension Rosacea Seasonal allergies Wears partial dentures Past Surgical History: Procedure Laterality Date BASAL CELL CARCINOMA EXCISION HEMORRHOIDECTOMY PHACOEMULSIFICATION OF CATARACT WITH INTRAOCULAR LENS IMPLANT Right 03/16/2016 Surgeon: Griffin Garcia MD; Location: [facility] OR [facility] PROSTATE SURGERY TONSILLECTOMY No family history on file. ALLERGIES Allergies Allergen Reactions Ciprofloxacin Other - See comments Tendon issues due to cipro Tequin [Gatifloxacin] Other - See comments Makes patient "feel bad" MEDICATIONS Current Discharge Medication List STOP taking these medications netarsudiL-latanoprost (ROCKLATAN) 0.02-0.005 % Drop Comments: Reason for Stopping: valsartan 80 mg tablet Comments: Reason for Stopping: bimatoprost (LUMIGAN) 0.01 % ophthalmic drops Comments: Reason for Stopping: BOSWELLIA TORI EXTRACT (BOSWELLIA TORI XT, [place], [facility] [place] Comments: Reason for Stopping: brimonidine (ALPHAGAN P) 0.1 % ophthalmic drops Comments: Reason for Stopping: desonide (DESOWEN) 0.05 % cream Comments: Reason for Stopping: fexofenadine (VICENTE ALLERGY) 180 mg tablet Comments: Reason for Stopping: fluticasone 50 mcg/actuation nasal spray Comments: Reason for Stopping: pseudoephedrine (SUDAFED) 30 mg tablet Comments: Reason for Stopping: terazosin (HYTRIN) 5 mg capsule Comments: Reason for Stopping: SOCIAL HISTORY Social History Socioeconomic History Marital status: Spouse name: Not on file Number of children: Not on file Years of education: Not on file Highest education level: Not on file Occupational History Not on file Social Needs Financial resource strain: Not on file Food insecurity Worry: Not on file Inability: Not on file Transportation needs Medical: Not on file Non-medical: Not on file Tobacco Use Smoking status: Never Smoker Smokeless tobacco: Never Used Substance and Sexual Activity Alcohol use: No Alcohol/week: 0.0 standard drinks Drug use: No Sexual activity: Not on file Lifestyle Physical activity Days per week: Not on file Minutes per session: Not on file Stress: Not on file Relationships Social connections Talks on phone: Not on file Gets together: Not on file Attends congregational service: Not on file Active member of club or organization: Not on file Attends meetings of clubs or organizations: Not on file Relationship status: Not on file Intimate partner violence Fear of current or ex partner: Not on file Emotionally abused: Not on file Physically abused: Not on file Forced sexual activity: Not on file Other Topics Concern Not on file Social History Narrative Not on file REVIEW OF SYSTEMS 12 point ROS comprehensively reviewed and negative unless stated above. PHYSICAL EXAMINATION Vitals: 09/14/20 2100 09/14/20 2200 09/14/20 2314 09/15/20 0000 BP: (!) 171/80 (!) 155/81 (!) 140/76 (!) 168/90 BP Location: Right arm Right arm Pulse: 90 92 96 86 Resp: (!) 34 24 25 27 Temp: 37.2 C (99 F) TempSrc: Oral SpO2: 95% 94% 95% 93% Weight: 81 kg (178 lb 8 oz) Height: 1.778 m (5' 10") NAD, lying comfortably Anicteric sclera, oral mucosa clear Good air entry b/l RRR, nl s1s2 Abd soft NT No significant LE, no calf tenderness AAO, no gross deficits Skin warm and dry Bilateral knees inspected and palpated and is not red or swollen LABS - reviewed pertinent labs as below: CBC BMP PT/INR WBC (10*3/L) Date Value 09/14/2020 7.40 NA (mmol/L) Date Value 09/14/2020 124 (L) No results found for: PT RBC (10*6/L) Date Value 09/14/2020 5.33 K (mmol/L) Date Value 09/14/2020 4.0 No results found for: PTINR PLT (10*3/L) Date Value 09/14/2020 216 CALCIUM (mg/dL) Date Value 09/14/2020 8.2 (L) HGB (g/dL) Date Value 09/14/2020 16.4 CL (mmol/L) Date Value 09/14/2020 89 (L) aPTT HCT (%) Date Value 09/14/2020 47.1 BUN (mg/dL) Date Value 09/14/2020 29 (H) No results found for: APTTPAT CREATININE (mg/dL) Date Value 09/14/2020 1.07 IMAGING - reviewed, pertinent results as below: Hospital Encounter on 09/14/20 XR CHEST 1 VW Narrative PROCEDURE: XR CHEST 1 VW CLINICAL INDICATION: sob TECHNIQUE: Frontal chest radiograph was obtained. COMPARISON: None FINDINGS: Bilateral patchy hazy opacities, right greater than left with scattered septal thickening. No pleural effusion or pneumothorax is seen. The heart is normal in size. No acute bony abnormality is noted. Impression Bilateral patchy hazy airspace opacities, which can be seen in the setting of atypical infectious process, such as COVID-19. Disclaimer: Generally, the findings on chest imaging in COVID-19 are not specific, and overlap with other infections, including influenza, H1N1, SARS and MERS. According to the Centers for Disease Control (CDC) and recent statement of the [place] [employer], viral testing remains the only specific method of diagnosis. Confirmation with the viral test is required, even if radiologic findings are suggestive of COVID-[address]. Preliminary Report Dictated by Resident: Shaan Cee MD., have reviewed this study and agree with the above report. EKG: NSR ASSESSMENT/PLAN Chace Schulz is a 89 year old male with PMH as listed above, admitted to the hospital with: COVID-19 virus infection 89 y/o male presents with worsening symptoms of covid that was diagnosed a week ago. Patient having fevers/chills (101 F at home), dyspnea worsening with exertion, decreaesd appetite, nausea, headache and loss of taste. Patient saturating 90-91% on RA. Patient denies chest pain, syncope, dizziness, vision changes, focal weakness, syncope, leg edema, orthopnea, dysuria, hematuria, diarrhea, abd pain, rash, itching, confusion, falls, hemoptysis. 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 Sanchez Nephrology consult Dr. Sun, unclear fluid status, start gentle hydration and possibly stop tomorrow Urine studies IV azithromycin day 1 IV decadron day 1 combivent qid F/u CTA chest, d-dimer, procalcitonin, other labs dvt propho lovenox 40 mg BID, increase based on above Full code, advance care planning discussed for 18 minutes, surrogate decision maker daughter who lives with him PT consult, SW consult htn Start metoprlol xl Hold valsartan Continue eye drops Home O2 eval on discharge documented in this encounter Consult Notes Luis Ross MD - 09/16/2020 3:21 PM CSTAssociated Order(s): CONSULT INFECTIOUS DISEASE This is a 89-year-old male I was consulted for: COVID 19 pneumonia. Patient came in with the fever of 101 shortness of breath on exertion degrees appetite and nausea headache and loss of face. Patient was found to have on admission, bowel oxygen saturation of 90% patient denies any headache chest painabdominal pain constipation diarrhea Past Medical History: Diagnosis Date Cataract CKD (chronic kidney disease) Gluten-sensitive enteropathy Hypertension Rosacea Seasonal allergies Wears partial dentures Past Surgical History: Procedure Laterality Date BASAL CELL CARCINOMA EXCISION HEMORRHOIDECTOMY PHACOEMULSIFICATION OF CATARACT WITH INTRAOCULAR LENS IMPLANT Right 03/16/2016 Surgeon: Griffin Garcia MD; Location: [facility] [place] PROSTATE SURGERY TONSILLECTOMY Social History Socioeconomic History Marital status: Spouse name: Not on file Number of children: Not on file Years of education: Not on file Highest education level: Not on file Occupational History Not on file Social Needs Financial resource strain: Not on file Food insecurity Worry: Not on file Inability: Not on file Transportation needs Medical: Not on file Non-medical: Not on file Tobacco Use Smoking status: Never Smoker Smokeless tobacco: Never Used Substance and Sexual Activity Alcohol use: No Alcohol/week: 0.0 standard drinks Drug use: No Sexual activity: Not on file Lifestyle Physical activity Days per week: Not on file Minutes per session: Not on file Stress: Not on file Relationships Social connections Talks on phone: Not on file Gets together: Not on file Attends congregational service: Not on file Active member of club or organization: Not on file Attends meetings of clubs or organizations: Not on file Relationship status: Not on file Intimate partner violence Fear of current or ex partner: Not on file Emotionally abused: Not on file Physically abused: Not on file Forced sexual activity: Not on file Other Topics Concern Not on file Social History Narrative Not on file No family history on file. Current Facility-Administered Medications: NaCl 0.9% (NS) IV infusion 1,000 mL, 1,000 mL, IV Infusion, CONTINUOUS, Jerel Crespo MD, Last Rate: 75 mL/hr at 09/16/20 1236, 1,000 mL at 09/16/20 1236 sodium chloride tablet 1 g, 1 g, Oral, BID, Jerel Crespo MD, 1 g at 09/16/20 1418 albuterol-ipratropium (COMBIVENT RESPIMAT) 20-100 mcg/actuation inhaler 1 Puff, 1 Puff, Inhalation, QID, Jesse Montoya MD, 1 Puff at 09/16/20 1120 aspirin chewable tablet 81 mg, 81 mg, Oral, QAM WITH BREAKFAST, Jesse Montoya MD, 81 mg at 09/16/20 0816 atorvastatin (LIPITOR) tablet 40 mg, 40 mg, Oral, QHS, Jesse Montoya MD, 40 mg at 09/15/202038 azithromycin (ZITHROMAX) 500 mg in NaCl 0.9% (NS) 250 mL VIAL-MATE IV piggyback, 500 mg, IV Piggyback, Q24H ABX, Jesse Montoya MD, 500 mg at 09/16/20446 dexamethasone (DECADRON) 6 mg in NaCl 0.9% (NS) piggyback, 6 mg, IV Piggyback, QHS, Jesse Montoya MD, 6 mg at 09/15/202039 docusate (COLACE) capsule 100 mg, 100 mg, Oral, BID, Jesse Montoya MD, Stopped at 09/15/202007 enoxaparin (LOVENOX) injection 40 mg, 40 mg, Subcutaneous, Q12H ABX, Jesse Montoya MD, 40 mg at 09/16/20446 lactobacillus acidophilus (ACIDOPHILLUS) 25 million cell -100 mg captab 1 tablet, 1 tablet, Oral, BID, Jesse Montoya MD, 1 tablet at 09/16/20 0816 metoprolol succinate XL (TOPROL XL) tablet 25 mg, 25 mg, Oral, BID, Jesse Montoya MD, 25 mg at 09/16/20 0816 ondansetron (ZOFRAN (PF)) injection 4 mg, 4 mg, Slow IV Push, Q6HPRN, Jesse Montoya MD Allergies Allergen Reactions Ciprofloxacin Other - See comments Tendon issues due to cipro Tequin [Gatifloxacin] Other - See comments Makes patient "feel bad" Review of system: 10 point review was performed Physical exam: Patient laying in bed not in any acute cardiopulmonary distress Vitals: 09/16/20 0725 09/16/20 0803 09/16/20 1120 09/16/20 1146 BP: (!) 152/80 122/64 BP Location: Pulse: 76 83 81 79 Resp: 15 20 15 18 Temp: 36.4 C (97.6 F) 36.9 C (98.5 F) TempSrc: Oral SpO2: 100% 92% 94% 93% Weight: Height: HEENT: Within normal limits Neck: Supple, no nephropathy Lungs: Basal crackles Heart: S1-S2 regular Abdomen: Soft, bowel sound present Extremity: No edema CBC WBC (10*3/L) Date Value 09/16/2020 11.51 (H) RBC (10*6/L) Date Value 09/16/2020 5.42 PLT (10*3/L) Date Value 09/16/2020 250 HGB (g/dL) Date Value 09/16/2020 16.4 HCT (%) Date Value 09/16/2020 48.4 CMP NA (mmol/L) Date Value 09/16/2020 129 (L) K (mmol/L) Date Value 09/16/2020 4.6 CALCIUM (mg/dL) Date Value 09/16/2020 8.5 (L) CL (mmol/L) Date Value 09/16/2020 93 (L) BUN (mg/dL) Date Value 09/16/2020 25 (H) CREATININE (mg/dL) Date Value 09/16/2020 0.77 GLUCOSE (mg/dL) Date Value 09/16/2020 128 (H) CO2 TOTAL (mmol/L) Date Value 09/16/2020 29 ALBUMIN (g/dL) Date Value 09/16/2020 3.1 (L) T PROTEIN (g/dL) Date Value 09/16/2020 6.0 (L) TOTAL BILI (mg/dL) Date Value 09/16/2020 0.9 ALT(SGPT) (U/L) Date Value 03/07/2016 24 ALTv (U/L) Date Value 09/16/2020 20 AST(SGOT) (U/L) Date Value 09/16/2020 52 (H) ALK PHOS (U/L) Date Value 09/16/2020 60 OCEDURE: XR CHEST 1 VW CLINICAL INDICATION: sob TECHNIQUE: Frontal chest radiograph was obtained. COMPARISON: None FINDINGS: Bilateral patchy hazy opacities, right greater than left with scattered septal thickening. No pleural effusion or pneumothorax is seen. The heart is normal in size. No acute bony abnormality is noted. IMPRESSION Bilateral patchy hazy airspace opacities, which can be seen in the setting of atypical infectious process, such as COVID-19. Disclaimer: Generally, the findings on chest imaging in COVID-19 are not specific, and overlap with other infections, including influenza, H1N1, SARS and MERS. According to the Centers for Disease Control (CDC) and recent statement of the [place] [employer], viral testing remains the only specific method of diagnosis. Confirmation with the viral test is required, even if radiologic findings are suggestive of COVID-[address]. Assessment and plan: Covid 19 pneumonia with bilateral infiltrate, continue current antibiotic treatment and respiratory care Continue to monitor for superimposed infections Continue empiric antibiotic hydration and nutritional support No new recommendation at this time thank you for consult ST[employer]ER Paulina Toro MD - 09/16/2020 2:46 PM CSTAssociated Order(s): CONSULT NEPHROLOGY HPI : Chace Schulz is a 89 year old with has a past medical history of Cataract, CKD (chronic kidney disease), Gluten-sensitive enteropathy, Hypertension, Rosacea, Seasonal allergies, and Wears partial dentures. has been referred for evaluation of hyponatremia noted on labs . Presented with positive COVID ,decreased appetite ,respiratory failure C/O cough and shortness of breath Started on NS with improvement Past Medical History: Diagnosis Date Cataract CKD (chronic kidney disease) Gluten-sensitive enteropathy Hypertension Rosacea Seasonal allergies Wears partial dentures Past Surgical History: Procedure Laterality Date BASAL CELL CARCINOMA EXCISION HEMORRHOIDECTOMY PHACOEMULSIFICATION OF CATARACT WITH INTRAOCULAR LENS IMPLANT Right 03/16/2016 Surgeon: Griffin Garcia MD; Location: [facility] [place] PROSTATE SURGERY TONSILLECTOMY Social History Socioeconomic History Marital status: Spouse name: Not on file Number of children: Not on file Years of education: Not on file Highest education level: Not on file Occupational History Not on file Social Needs Financial resource strain: Not on file Food insecurity Worry: Not on file Inability: Not on file Transportation needs Medical: Not on file Non-medical: Not on file Tobacco Use Smoking status: Never Smoker Smokeless tobacco: Never Used Substance and Sexual Activity Alcohol use: No Alcohol/week: 0.0 standard drinks Drug use: No Sexual activity: Not on file Lifestyle Physical activity Days per week: Not on file Minutes per session: Not on file Stress: Not on file Relationships Social connections Talks on phone: Not on file Gets together: Not on file Attends congregational service: Not on file Active member of club or organization: Not on file Attends meetings of clubs or organizations: Not on file Relationship status: Not on file Intimate partner violence Fear of current or ex partner: Not on file Emotionally abused: Not on file Physically abused: Not on file Forced sexual activity: Not on file Other Topics Concern Not on file Social History Narrative Not on file No family history on file. Current Facility-Administered Medications: NaCl 0.9% (NS) IV infusion 1,000 mL, 1,000 mL, IV Infusion, CONTINUOUS, Jerel Crespo MD, Last Rate: 75 mL/hr at 09/16/20 1236, 1,000 mL at 09/16/20 1236 sodium chloride tablet 1 g, 1 g, Oral, BID, Jerel Crespo MD, 1 g at 09/16/20 1418 albuterol-ipratropium (COMBIVENT RESPIMAT) 20-100 mcg/actuation inhaler 1 Puff, 1 Puff, Inhalation, QID, Jesse Montoya MD, 1 Puff at 09/16/20 1120 aspirin chewable tablet 81 mg, 81 mg, Oral, QAM WITH BREAKFAST, Jesse Montoya MD, 81 mg at 09/16/20 0816 atorvastatin (LIPITOR) tablet 40 mg, 40 mg, Oral, QHS, Jesse Montoya MD, 40 mg at 09/15/202038 azithromycin (ZITHROMAX) 500 mg in NaCl 0.9% (NS) 250 mL VIAL-MATE IV piggyback, 500 mg, IV Piggyback, Q24H ABX, Jesse Montoya MD, 500 mg at 09/16/20 0447 dexamethasone (DECADRON) 6 mg in NaCl 0.9% (NS) piggyback, 6 mg, IV Piggyback, QHS, Jesse Montoya MD, 6 mg at 09/15/20 204 docusate (COLACE) capsule 100 mg, 100 mg, Oral, BID, Jesse Montoya MD, Stopped at 09/15/202007 enoxaparin (LOVENOX) injection 40 mg, 40 mg, Subcutaneous, Q12H ABX, Jesse Montoya MD, 40 mg at 09/16/20446 lactobacillus acidophilus (ACIDOPHILLUS) 25 million cell -100 mg captab 1 tablet, 1 tablet, Oral, BID, Jesse Montoya MD, 1 tablet at 09/16/20 0816 metoprolol succinate XL (TOPROL XL) tablet 25 mg, 25 mg, Oral, BID, Jesse Montoya MD, 25 mg at 09/16/20 0816 ondansetron (ZOFRAN (PF)) injection 4 mg, 4 mg, Slow IV Push, Q6HPRN, Jesse Montoya MD REVIEW OF SYSTEMS: All other ROS negative Vitals: 09/16/20 0725 09/16/20 0803 09/16/20 1120 09/16/20 1146 BP: (!) 152/80 122/64 BP Location: Pulse: 76 83 81 79 Resp: 15 20 15 18 Temp: 36.4 C (97.6 F) 36.9 C (98.5 F) TempSrc: Oral SpO2: 100% 92% 94% 93% Weight: Height: Physical Exam Exam is limited due to COVID Constitutional: no apparent distress ENT: normocephalic atraumatic GI: non-distended : not examined NA (mmol/L) Date Value 09/16/2020 129 (L) K (mmol/L) Date Value 09/16/2020 4.6 CALCIUM (mg/dL) Date Value 09/16/2020 8.5 (L) CL (mmol/L) Date Value 09/16/2020 93 (L) BUN (mg/dL) Date Value 09/16/2020 25 (H) CREATININE (mg/dL) Date Value 09/16/2020 0.77 GLUCOSE (mg/dL) Date Value 09/16/2020 128 (H) CO2 TOTAL (mmol/L) Date Value 09/16/2020 29 ALBUMIN (g/dL) Date Value 09/16/2020 3.1 (L) T PROTEIN (g/dL) Date Value 09/16/2020 6.0 (L) TOTAL BILI (mg/dL) Date Value 09/16/2020 0.9 No results found for: BILIUNCON No results found for: BILICONJ ALT(SGPT) (U/L) Date Value 03/07/2016 24 ALTv (U/L) Date Value 09/16/2020 20 AST(SGOT) (U/L) Date Value 09/16/2020 52 (H) ALK PHOS (U/L) Date Value 09/16/2020 60 NRBC/100 WBC (/100 WBCs) Date Value 09/16/2020 0.0 NRBC x10^3 (10*3/L) Date Value 09/16/2020 <0.01 No results found for: PCORRWBC No results found for: PROFCOMMS No results found for: CALLEDCBC Impression : Hyponatremia sec to hypovolemia Acute COVID infection on steroids and antibiotics Htn stable Type 2 NSTEMI Plan : Continue IVF Monitor labs Continue all other meds and POC Agree with holding ARB Lila Brown, PT - 09/15/2020 4:55 PM CSTAssociated Order(s): CONSULT ADULT PHYSICAL THERAPY 09/15/2020 Patient agreeable to working with physical therapy. Patient met Semi reclined in bed. PHYSICAL THERAPY EVALUATION Consult received, chart reviewed and evaluation complete this date. Patient is referred to PT for evaluation and treatment. Patient is a 89 year old male who presents to hospital for NSTEMI and COVID. Discharge Recommendations: Therapy Needs and Potential: decline in gait and/or balance and decreased endurance Challenges to Home Transition: increased risk of falls Equipment recommendations: no device Current Functional Status and/or Treatment:Functional mobility training, Transfer training, Gait training, Patient/Family/Caregiver education and Therapeutic exercise: PT reviewed PT POC, Safety precautions and exercises to perform. ASSISTANT DIRECTOR OF FINANCIAL AID present during evaluation and assisted with patient treatment. Bed Mobility: Rolling: Independent Supine-sit: Modified independent Scooting to edge of bed: Modified independent Sit to supine: Modified independent, SBA/Setup. Transfers: Sit to stand: SBA/Setup using no device Stand to sit: SBA/Setup using no device Static/dynamic standing balance: Fair+ Ambulation: Assisted patient with ambulation as follows: 40 feet using no device and SBA/Setup. Therapeutic exercise: Patient educated to sit eob or in chairs for each meal, to remain up and oob as much as able to tolerate. After session, patient Sitting edge of bed. Call button provided. RN made aware of status. Pt eatinghis dinner. PLAN OF CARE: At least 2 times per week, once or twice a day (while in hospital) per patient's tolerance and medical needs. See below for complete details. Admit Date: 09/14/2020 Hospital Diagnosis:NSTEMI PT Diagnosis: Weakness Weight Bearing Precaution: NA General Precautions: PPE used:Gloves, Gown, Surgical mask, N-95 Mask and Goggles, Fall,IV LUE, oxygen: Nasal canula, patient performed gait without O2. Bracing/Cast present or required:N/A PMH: Past Medical History: Diagnosis Date Cataract CKD (chronic kidney disease) Gluten-sensitive enteropathy Hypertension Rosacea Seasonal allergies Wears partial dentures PSH: Past Surgical History: Procedure Laterality Date BASAL CELL CARCINOMA EXCISION HEMORRHOIDECTOMY PHACOEMULSIFICATION OF CATARACT WITH INTRAOCULAR LENS IMPLANT Right 03/16/2016 Surgeon: Griffin Garcia MD; Location: [facility] [place] PROSTATE SURGERY TONSILLECTOMY Prior Living Situation: lives with their family and house, Level entry. DME: No device Prior level of Mobility: community ambulation, house hold ambulation Subjective: " I am alright, I was doing alright for an 89 year old, I walk everyday." Patient/Family Goals: Get better, go home. Patient/Family verbalizes understanding of condition: Yes PAIN: denies pain COMMUNICATION Primary Language: Czech Able to Verbalize needs: Yes Vision:good; no issues reported Hearing:good; no issues reported ORIENTATION/COGNITION: Oriented to: person, place, date/time and situation Awake: Yes Alert: Yes Dizzy: No Follows Commands: Yes 1-Step Yes Multi-Step Yes Inconsistent: No NEUROLOGICAL Light Touch: within functional limits bilateral LE BALANCE: Sitting: Static: Good Dynamic: Good Standing: Static: Good Dynamic: Good RANGE OF MOTION: within functional limits bilateral LE STRENGTH: 4-/5 (G-), bilateral LE ENDURANCE: Fair+, Nasal canula, Room air SKIN INTEGRITY: intact, see c2 tactical analysis technician for further details. PROBLEM LIST: Decline in gait, Decreased strength and Decreased endurance ASSESSMENT: Patient is a 89 year old male seen secondary to the above listed diagnosis. Patient would benefit from continued PT to address the above listed deficits to maximize independence and safety with functional mobility. Rehabilitation Potential: good Goals: The following goals are to maximize independence and safety with functional mobility to eventually return to prior living situation and prior functional status. Upon discharge, patient and/or family will demonstrate the followin. Modified independent with ambulation, Feet: 100 using least assistive device. 2. Demonstrate or verbalize understanding of home exercise program in order to continue with their rehab on their own. Treatment Plan: Gait training, Therapeutic exercise and Safety education, patient/caregiver education PATIENT EDUCATION: Patient provided with preferred teaching of verbal information, written information and demonstration on role of PT, plan of care, and goals. Shows readiness to learn. Verbal instruction and Written material teaching provided. Individual is able to read and verbalizes understanding of teaching provided and accurately returns demonstration of skill. Total Time Tx Codes in Minutes: 10 min Total Treatment Time in Minutes: 15 min Lila Garcia, PT [place] PT License [id number] [facility] Rehabilitation Services Department (phone) (fax) [employer]ITCH [employer]AT JOINER Jacobo Sanchez MD - 09/15/2020 11:42 AM CSTAssociated Order(s): CONSULT CARDIOLOGY [facility] Cardiology Consult PCP: Ricci Villatoro Date of Service: 09/15/2020 CHIEF COMPLAINT/reason for consult: heart failure and atrial fibrillation HISTORY OF PRESENT ILLNESS This is an 89 y/o male presents with PMH HTN who presents with worsening symptoms of covid that was diagnosed a week ago. Patient having fevers/chills (101 F at home), dyspnea worsening with exertion, decreaesd appetite, nausea, headache and loss of taste. Patient saturating 90-91% on RA. Patient denies chest pain, syncope, dizziness, vision changes, focal weakness, syncope, leg edema, orthopnea, dysuria, hematuria, diarrhea, abd pain, rash, itching, confusion, falls, hemoptysis. Noted to have elevated troponin and BNP. CXR showed infiltrates. He received 1 dose of IV lasix. Overnight he had 1 episode of atrial fibrillation with RVR lasting less than 1 hour. PAST MEDICAL HISTORY Past Medical History: Diagnosis Date Cataract CKD (chronic kidney disease) Gluten-sensitive enteropathy Hypertension Rosacea Seasonal allergies Wears partial dentures Past Surgical History: Procedure Laterality Date BASAL CELL CARCINOMA EXCISION HEMORRHOIDECTOMY PHACOEMULSIFICATION OF CATARACT WITH INTRAOCULAR LENS IMPLANT Right 03/16/2016 Surgeon: Griffin Garcia MD; Location: [facility] [place] PROSTATE SURGERY TONSILLECTOMY No family history on file. ALLERGIES Allergies Allergen Reactions Ciprofloxacin Other - See comments Tendon issues due to cipro Tequin [Gatifloxacin] Other - See comments Makes patient "feel bad" MEDICATIONS No current facility-administered medications on file prior to encounter. Current Outpatient Medications on File Prior to Encounter Medication Sig Dispense Refill netarsudiL-latanoprost (ROCKLATAN) 0.02-0.005 % Drop Place 1 Drop in each eye at bedtime. valsartan 80 mg tablet Take 80 mg by mouth daily. bimatoprost (LUMIGAN) 0.01 % ophthalmic drops Place [...] fluticasone 50 mcg/actuation nasal spray Use 1 Gibson in each nostril daily. pseudoephedrine (SUDAFED) 30 mg tablet Take 1 tablet by mouth daily. terazosin (HYTRIN) 5 mg capsule Take 5 mg by mouth as needed. SOCIAL HISTORY Social History Socioeconomic History Marital status: Spouse name: Not on file Number of children: Not on file Years of education: Not on file Highest education level: Not on file Occupational History Not on file Social Needs Financial resource strain: Not on file Food insecurity Worry: Not on file Inability: Not on file Transportation needs Medical: Not on file Non-medical: Not on file Tobacco Use Smoking status: Never Smoker Smokeless tobacco: Never Used Substance and Sexual Activity Alcohol use: No Alcohol/week: 0.0 standard drinks Drug use: No Sexual activity: Not on file Lifestyle Physical activity Days per week: Not on file Minutes per session: Not on file Stress: Not on file Relationships Social connections Talks on phone: Not on file Gets together: Not on file Attends congregational service: Not on file Active member of club or organization: Not on file Attends meetings of clubs or organizations: Not on file Relationship status: Not on file Intimate partner violence Fear of current or ex partner: Not on file Emotionally abused: Not on file Physically abused: Not on file Forced sexual activity: Not on file Other Topics Concern Not on file Social History Narrative Not on file REVIEW OF SYSTEMS At least 10 systems reviewed, negative except as mentioned in HPI PHYSICAL EXAMINATION Vitals: 09/15/20 0416 09/15/20 0800 09/15/20 0809 09/15/20 1100 BP: 134/75 BP Location: Pulse: 125 84 85 80 Resp: (!) 35 20 Temp: 36.9 C (98.4 F) TempSrc: Oral SpO2: 91% 94% 94% Weight: Height: Exam is limited due to COVID Constitutional: no apparent distress ENT: normocephalic atraumatic GI: non-distended : not examined LABS - reviewed pertinent labs as below: CBC BMP PT/INR WBC (10*3/L) Date Value 09/15/2020 7.46 NA (mmol/L) Date Value 09/15/2020 127 (L) No results found for: PT PLT (10*3/L) Date Value 09/15/2020 225 K (mmol/L) Date Value 09/15/2020 3.6 INR (no units) Date Value 09/15/2020 1.2 HGB (g/dL) Date Value 09/15/2020 16.1 BUN (mg/dL) Date Value 09/15/2020 24 (H) HCT (%) Date Value 09/15/2020 46.9 CREATININE (mg/dL) Date Value 09/15/2020 0.90 LIPID PROFILE GLUCOSE (mg/dL) Date Value 09/15/2020 86 CHOL (mg/dL) Date Value 09/15/2020 116 (L) TSH LDL CHOL (mg/dL) Date Value 09/15/2020 75 TSH (mIU/L) Date Value 09/15/2020 2.18 CARDIAC ENZYMES HDL (mg/dL) Date Value 09/15/2020 24 (L) CK (U/L) Date Value 09/15/2020 138 TRIG (mg/dL) Date Value 09/15/2020 83 LFTs No results found for: CKMB AST(SGOT) (U/L) Date Value 09/15/2020 59 (H) TROPONIN I (ng/mL) Date Value 09/15/2020 0.088 (H) ALT(SGPT) (U/L) Date Value 03/07/2016 24 ALTv (U/L) Date Value 09/15/2020 22 No results found for: BNP IMAGING - reviewed, pertinent results as below: CXR--infiltrates EKG: Sinus tachycardia ASSESSMENT/PLAN Principal Problem: COVID-19 virus infection Active Problems: NSTEMI (non-ST elevated myocardial infarction) Pneumonia due to COVID-19 virus Elevated brain natriuretic peptide (BNP) level Acute diastolic congestive heart failure Essential hypertension Paroxysmal atrial fibrillation with RVR COVID 19 pneumonia--per primary team Troponin elevation--likely type 2 KS due to demand ischemia from COVID infection. Continue ASA. ECHOto assess LVEF and wall motion. Elevated BNP--Likely mild acute diastolic HF in the setting of COVID pneumonia. CXR is more consistent with infection. He received 1 dose of IV lasix. Will diureses as needed. Daily I/O. Daily weight. 1 episode of Afib with RVR--converted. Continue metoprolol and ASA. If recurs, will consider anticoagulation. HTN--His BP control now is acceptable. Continue metoprolol. Adjust as needed. Thank you for allowing us to participate in the care of your patient. Please feel free to contact usfor any questions or if we can be of further assistance. Jacobo Sanchez MD, [facility], [place] Digital Data Analyst, Division of Cardiology [facility] documented in this encounter ED Notes Shawna Saeed RN - 09/14/2020 5:15 PM CSTPatient reports testing positive for COVID one week ago with increasing shortness of breath ever since. Patient reports fever of 101f at home. Patient's SpO2 is 91% on room air. Patient denies any chest pain. rKatelyn smith NP - 09/14/2020 5:06 PM CST [facility] EMERGENCY DEPARTMENT ENCOUNTER Patient Name: Chace Schulz Date of : 1930 89 year old Treatment Room: [place] [address] Primary Care Physician: Ricci Villatoro Patient Escorted by: Self [9] Mode of Arrival: Personal means [1] EMS Treatment Prior to ED Arrival: ASSISTANT DIRECTOR OF FINANCIAL AID treatment: None Chief complaint Chief Complaint Patient presents with Shortness of Breath History of present illness Chace Schulz is a 89 year old male who presents to the ED with complaint of being positive covid for past week and becoming more SOB . He denies chest pain, no hemoptysis, no nausea or vomiting History provided by: Patient Shortness of Breath Severity: Moderate Onset quality: Gradual Timing: Constant Progression: Worsening Chronicity: New Context: not activity Relieved by: None tried Worsened by: Exertion and deep breathing Ineffective treatments: None tried Associated symptoms: cough, fever and headaches Associated symptoms: no chest pain, no claudication, no diaphoresis, no hemoptysis, no neck pain, noPND, no rash, no sore throat, no sputum production, no syncope, no swollen glands, no vomiting and no wheezing Past Medical History Past Medical History: Diagnosis Date Cataract CKD (chronic kidney disease) Gluten-sensitive enteropathy Hypertension Rosacea Seasonal allergies Wears partial dentures Past Surgical History Past Surgical History: Procedure Laterality Date BASAL CELL CARCINOMA EXCISION HEMORRHOIDECTOMY PHACOEMULSIFICATION OF CATARACT WITH INTRAOCULAR LENS IMPLANT Right 03/16/2016 Surgeon: Griffin Garcia MD; Location: [facility] [place] PROSTATE SURGERY TONSILLECTOMY Medications Current Outpatient Medications Medication Instructions bimatoprost (LUMIGAN) 0.01 % ophthalmic drops 1 Drop, Ophthalmic, QHS BOSWELLIA TORI EXTRACT (BOSWELLIA TORI XT, BULK, MISC) 2 capsules, Miscellaneous (Supplies-Non Drugs), DAILY brimonidine (ALPHAGAN P) 0.1 % ophthalmic drops 1 Drop, Both Eyes, BID desonide (DESOWEN) 1 g, Topical (Apply To Affected Areas), PRN fexofenadine (VICENTE ALLERGY) 180 mg, Oral, DAILY fluticasone 50 mcg/actuation nasal spray 1 Gibson, Nasal, DAILY pseudoephedrine (SUDAFED) 30 mg tablet 1 tablet, Oral, DAILY terazosin (HYTRIN) 5 mg, Oral, PRN Allergies Allergies Allergen Reactions Ciprofloxacin Other - See comments Tendon issues due to cipro Tequin [Gatifloxacin] Other - See comments Makes patient "feel bad" Review of Systems Review of Systems Constitutional: Positive for fever. Negative for diaphoresis. HENT: Negative for sore throat. Respiratory: Positive for cough and shortness of breath. Negative for hemoptysis, sputum production and wheezing. Cardiovascular: Negative for chest pain, claudication, syncope and PND. Gastrointestinal: Negative for vomiting. Musculoskeletal: Negative for neck pain. Skin: Negative for rash. Neurological: Positive for headaches. All other systems reviewed and are negative. Physical Exam BP (!) 171/80 | Pulse 90 | Temp 37.6 C (99.6 F) (Oral) | Resp (!) 34 | Ht 1.778 m (5' 10") | Wt 92.5 kg (204 lb) | SpO2 95% | BMI 29.27 kg/m Physical Exam Vitals signs and nursing note reviewed. Constitutional: General: He is not in acute distress. Appearance: Normal appearance. He is well-developed. He is not ill-appearing, toxic-appearing or diaphoretic. HENT: Head: Normocephalic. Right Ear: External ear normal. Left Ear: External ear normal. Nose: Nose normal. Mouth/Throat: Mouth: Mucous membranes are moist. Pharynx: Oropharynx is clear. Eyes: General: No scleral icterus. Conjunctiva/sclera: Conjunctivae normal. Pupils: Pupils are equal, round, and reactive to light. Neck: Musculoskeletal: Normal range of motion and neck supple. No muscular tenderness. Cardiovascular: Rate and Rhythm: Normal rate and regular rhythm. Pulses: Normal pulses. Heart sounds: Normal heart sounds. No gallop. Pulmonary: Effort: Pulmonary effort is normal. No respiratory distress. Breath sounds: Normal breath sounds. No stridor. No wheezing, rhonchi or rales. Chest: Chest wall: No tenderness. Abdominal: General: Bowel sounds are normal. Palpations: Abdomen is soft. Tenderness: There is no abdominal tenderness. There is no right CVA tenderness, left CVA tenderness, guarding or rebound. Musculoskeletal: Normal range of motion. General: No swelling, tenderness, deformity or signs of injury. Right lower leg: No edema. Left lower leg: No edema. Skin: General: Skin is warm and dry. Capillary Refill: Capillary refill takes less than 2 seconds. Coloration: Skin is not jaundiced or pale. Findings: Rash present. No bruising, erythema or lesion. Neurological: General: No focal deficit present. Mental Status: He is alert and oriented to person, place, and time. Mental status is at baseline. Cranial Nerves: No cranial nerve deficit. Sensory: No sensory deficit. Motor: No weakness. Psychiatric: Mood and Affect: Mood normal. Behavior: Behavior normal. Thought Content: Thought content normal. Judgment: Judgment normal. Labs and Studies Reviewed: Troponin elevated, bnp slightly elevated , CXR bilateral opacities Recent Results (from the past 24 hour(s)) CBC WITH DIFF Collection Time: 09/14/20 7:56 PM Result Value Ref Range WBC 7.40 4.20 - 10.70 10*3/L RBC 5.33 4.26 - 5.52 10*6/L HGB 16.4 12.2 - 16.4 g/dL HCT 47.1 38.4 - 49.3 % MCV 88.4 81.7 - 95.6 fL MCH 30.8 26.1 - 32.7 pg MCHC 34.8 31.2 - 35.0 g/dL RDW-SD 40.9 38.5 - 51.6 fL RDW-CV 12.6 12.1 - 15.4 % PLT 216 150 - 328 10*3/L MPV 10.4 9.8 - 13.0 fL NRBC/100 WBC 0.0 0.0 - 10.0 /100 WBCs NRBC x10^3 <0.01 10*3/L GRAN MAT (NEUT) % 66.5 % IMM GRAN % 0.70 % LYMPH % 17.0 % MONO % 15.4 % EOS % 0.0 % BASO % 0.4 % GRAN MAT x10^3(ANC) 4.92 1.99 - 6.95 10*3/uL IMM GRAN x10^3 0.05 0.00 - 0.06 10*3/uL LYMPH x10^3 1.26 1.09 - 3.23 10*3/uL MONO x10^3 1.14 (H) 0.36 - 1.02 10*3/uL EOS x10^3 <0.03 (L) 0.06 - 0.53 10*3/uL BASO x10^3 0.03 0.01 - 0.09 10*3/uL TROPONIN I Collection Time: 09/14/20 7:56 PM Result Value Ref Range TROPONIN I 0.074 (H) <=0.034 ng/mL N-TERMINAL PRO-BNP Collection Time: 09/14/20 7:56 PM Result Value Ref Range NT-proBNP 735 (H) <=450 pg/mL LACTATE DEHYDROGENASE Collection Time: 09/14/20 7:56 PM Result Value Ref Range LDH 662 (H) 300 - 600 U/L FERRITIN SERUM Collection Time: 09/14/20 7:56 PM Result Value Ref Range FERRITIN 362.0 18.0 - 464.0 ng/mL D-DIMER Collection Time: 09/14/20 7:56 PM Result Value Ref Range D-DIMER 0.87 (H) <0.41 g/mL (FEU) COMP. METABOLIC PANEL (24049) Collection Time: 09/14/20 8:58 PM Result Value Ref Range NA 124 (L) 135 - 145 mmol/L K 4.0 3.5 - 5.0 mmol/L CL 89 (L) 98 - 108 mmol/L CO2 TOTAL 28 23 - 31 mmol/L AGAP 7 2 - 16 BUN 29 (H) 7 - 23 mg/dL GLUCOSE 80 70 - 110 mg/dL CREATININE 1.07 0.60 - 1.25 mg/dL TOTAL BILI 1.0 0.1 - 1.1 mg/dL CALCIUM 8.2 (L) 8.6 - 10.6 mg/dL T PROTEIN 6.1 (L) 6.3 - 8.2 g/dL ALBUMIN 3.3 (L) 3.5 - 5.0 g/dL ALK PHOS 60 34 - 122 U/L ALTv 21 5 - 50 U/L AST(SGOT) 54 (H) 13 - 40 U/L eGFR Calculation (Non-) 65.2 mL/min/1.73m2 eGFR Calculation () 79.0 mL/min/1.73m2 COVID-19 (ID NOW RAPID TESTING) Collection Time: 09/14/20 9:00 PM Specimen: NASOPHARYNGEAL SWAB Result Value Ref Range SARS-CoV-2 Rapid ID NOW Positive (A) Not Detected Hospital Encounter on 09/14/20 XR CHEST 1 VW Narrative PROCEDURE: XR CHEST 1 VW CLINICAL INDICATION: sob TECHNIQUE: Frontal chest radiograph was obtained. COMPARISON: None FINDINGS: Bilateral patchy hazy opacities, right greater than left with scattered septal thickening. No pleural effusion or pneumothorax is seen. The heart is normal in size. No acute bony abnormality is noted. Impression Bilateral patchy hazy airspace opacities, which can be seen in the setting of atypical infectious process, such as COVID-19. Disclaimer: Generally, the findings on chest imaging in COVID-19 are not specific, and overlap with other infections, including influenza, H1N1, SARS and MERS. According to the Centers for Disease Control (CDC) and recent statement of the [employer] [place] [employer] [employer], viral testing remains the only specific method of diagnosis. Confirmation with the viral test is required, even if radiologic findings are suggestive of COVID-[address]. Preliminary Report Dictated by Resident: Glenroy Singletary I, Shaan Chandler MD., have reviewed this study and agree with the above report. Orders and Treatments Orders Placed This Encounter Procedures XR CHEST 1 VW CBC WITH DIFF COMP. METABOLIC PANEL (90848) TROPONIN I N-TERMINAL PRO-BNP LACTATE DEHYDROGENASE FERRITIN SERUM D-DIMER COVID-19 (ID NOW RAPID TESTING) LAB ONLY COVID INTERPRETATION Orders Placed This Encounter Medications aspirin tablet 325 mg Notes Chace Schulz is a 89 year old male who presents to the ED with complaint of being positive covid for past week and becoming more SOB . He denies chest pain, no hemoptysis, no nausea or vomiting. Reports fever max at home 101. PLAN: XR CHEST 1 VW CBC WITH DIFF COMP. METABOLIC PANEL (93577) TROPONIN I N-TERMINAL PRO-BNP LACTATE DEHYDROGENASE FERRITIN SERUM D-DIMER COVID-19 (ID NOW RAPID TESTING) LAB ONLY COVID INTERPRETATION Orders Placed This Encounter Medications aspirin tablet 325 mg ED Course as of Sep 14 2202 Mon Sep 14, 20202[address] Spoke [address] Saldivar who agrees to consult , no need for anticoagulation at this time, luisiedDrTania Montoya [PD] [address] Montoya who agrees to accept for observation pending BMP [PD] ED Course User Index [PD] Katelyn Sherman, CHARGER TESTER Procedures Procedures Stress SaO2 91% RA Diagnosis ICD-10-CM ICD-9-CM 1. SOB (shortness of breath) R06.02 786.05 2. Elevated blood pressure reading in office with diagnosis of hypertension I10 401.9 3. Pneumonia due to COVID-19 virus U07.1 480.8 J12.89 4. NSTEMI (non-ST elevated myocardial infarction) I21.4 410.70 5. Elevated brain natriuretic peptide (BNP) level R79.89 790.99 MDM MDM Reviewed: previous chart, nursing note and vitals Patient Vitals for the past 24 hrs: BP Temp Temp src Pulse Resp SpO2 Height Weight 09/14/20 2100 (!) 171/80 90 (!) 34 95 % 09/14/201999 (!) 166/82 97 26 94 % 09/14/20 1930 (!) 160/83 91 18 95 % 09/14/20 192 (!) 168/95 97 18 95 % 09/14/20 1712 136/74 37.6 C (99.6 F) Oral 95 21 91 % 1.778 m (5' 10") 92.5 kg (204 lb) Disposition and Condition ED Disposition ED Disposition Condition Comment Admit - Observation Is this patient COVID positive or a patient under investigation (PUI)?: Yes Treatment Team: [facility] [[id number]] Primary reason for admission: NSTEMI (non-ST elevated myocardial infarction) [699600] Is (or was) this a planned re-admission?: No Katelyn Sherman BICYCLE II ASSEMBLER- Faculty [facility] T976 STITCH COAT JOINER Associated attestation - Ean Pedroza MD - 09/17/2020 7:30 AM CSTOn the date of service, I reviewed the patients history, exam findings, diagnostic and any interventions or procedures in detail of the assigned advance practice provider and was available for consultation. Ean Pedroza Jr., MD Clinical Digital Data Analyst [facility] Emergency Department documented in this encounter Miscellaneous Notes Care Plan - Candy Bolton RN - 09/17/2020 1:20 PM LOCKSTITCH COAT JOINER Problem: Discharge Planning Goal: Absence of venous thromboembolism 09/17/2020 1320 by Candy Bolton RN Outcome: Adequate for discharge 09/17/2020 1319 by Candy Bolton RN Outcome: Progressing as expected Goal: Adequate for discharge 09/17/2020 1320 by Candy Bolton RN Outcome: Adequate for discharge 09/17/2020 1319 by Candy Bolton RN Outcome: Progressing as expected Goal: Effective communication 09/17/2020 1320 by Candy Bolton RN Outcome: Adequate for discharge 09/17/2020 1319 by Candy Bolton RN Outcome: Progressing as expected Problem: Falls, Risk of Goal: Absence of falls 09/17/2020 1320 by Candy Bolton RN Outcome: Adequate for discharge 09/17/2020 131 by Candy Bolton RN Outcome: Progressing as expected Problem: Infection, Risk of or Actual Goal: Absence of infection 09/17/2020 1320 by Candy Bolton RN Outcome: Adequate for discharge 09/17/2020 1319 by Candy Bolton RN Outcome: Progressing as expected Problem: Pain Goal: Control of pain at or below patient's documented comfort goal 09/17/2020 1320 by Candy Bolton RN Outcome: Adequate for discharge 09/17/2020 1319 by Candy Bolton RN Outcome: Progressing as expected Goal: Reduction in pain sensation 09/17/2020 1320 by Candy Bolton RN Outcome: Adequate for discharge 09/17/2020 1319 by Candy Bolton RN Outcome: Progressing as expected Problem: Respiratory Function - Impaired Goal: Able to cough effectively 09/17/2020 1320 by Candy Bolton RN Outcome: Adequate for discharge 09/17/2020 1319 by Candy Bolton RN Outcome: Progressing as expected Goal: Adequate oxygenation 09/17/2020 1320 by Candy Bolton RN Outcome: Adequate for discharge 09/17/2020 1319 by Candy Bolton RN Outcome: Progressing as expected Goal: Adequate work of breathing 09/17/2020 1320 by Candy Bolton RN Outcome: Adequate for discharge 09/17/2020 131 by Candy Bolton RN Outcome: Progressing as expected Goal: Patent airway 09/17/2020 1320 by Candy Bolton RN Outcome: Adequate for discharge 09/17/2020 1319 by Candy Bolton RN Outcome: Progressing as expected are Plan - Candy Bolton RN - 09/17/2020 1:20 PM LOCKSTITCH COAT JOINER Problem: Discharge Planning Goal: Absence of venous thromboembolism Outcome: Progressing as expected Goal: Adequate for discharge Outcome: Progressing as expected Goal: Effective communication Outcome: Progressing as expected Problem: Falls, Risk of Goal: Absence of falls Outcome: Progressing as expected Problem: Infection, Risk of or Actual Goal: Absence of infection Outcome: Progressing as expected Problem: Pain Goal: Control of pain at or below patient's documented comfort goal Outcome: Progressing as expected Goal: Reduction in pain sensation Outcome: Progressing as expected Problem: Respiratory Function - Impaired Goal: Able to cough effectively Outcome: Progressing as expected Goal: Adequate oxygenation Outcome: Progressing as expected Goal: Adequate work of breathing Outcome: Progressing as expected Goal: Patent airway Outcome: Progressing as expected are Plan - Janee Rich RN - 09/16/2020 9:46 PM LOCKSTITCH COAT JOINER Problem: Discharge Planning Goal: Absence of venous thromboembolism Outcome: Progressing as expected Goal: Adequate for discharge Outcome: Progressing as expected Goal: Effective communication Outcome: Progressing as expected Problem: Falls, Risk of Goal: Absence of falls Outcome: Progressing as expected Problem: Infection, Risk of or Actual Goal: Absence of infection Outcome: Progressing as expected Problem: Pain Goal: Control of pain at or below patient's documented comfort goal Outcome: Progressing as expected Goal: Reduction in pain sensation Outcome: Progressing as expected Problem: Respiratory Function - Impaired Goal: Able to cough effectively Outcome: Progressing as expected Goal: Adequate oxygenation Outcome: Progressing as expected Goal: Adequate work of breathing Outcome: Progressing as expected Goal: Patent airway Outcome: Progressing as expected are Plan - Shena García RN - 09/16/2020 7:32 PM LOCKSTITCH COAT JOINER Problem: Discharge Planning Goal: Absence of venous thromboembolism Outcome: Progressing as expected Goal: Adequate for discharge Outcome: Progressing as expected Goal: Effective communication Outcome: Progressing as expected Problem: Falls, Risk of Goal: Absence of falls Outcome: Progressing as expected Problem: Infection, Risk of or Actual Goal: Absence of infection Outcome: Progressing as expected Problem: Pain Goal: Control of pain at or below patient's documented comfort goal Outcome: Progressing as expected Goal: Reduction in pain sensation Outcome: Progressing as expected Problem: Respiratory Function - Impaired Goal: Able to cough effectively Outcome: Progressing as expected Goal: Adequate oxygenation Outcome: Progressing as expected Goal: Adequate work of breathing Outcome: Progressing as expected Goal: Patent airway Outcome: Progressing as expected are Tessa - Bonita Joshua RN - 09/15/2020 10:55 PM LOCKSTITCH COAT JOINER Problem: Discharge Planning Goal: Absence of venous thromboembolism Outcome: Progressing as expected Goal: Adequate for discharge Outcome: Progressing as expected Goal: Effective communication Outcome: Progressing as expected Problem: Falls, Risk of Goal: Absence of falls Outcome: Progressing as expected Problem: Infection, Risk of or Actual Goal: Absence of infection Outcome: Progressing as expected Problem: Pain Goal: Control of pain at or below patient's documented comfort goal Outcome: Progressing as expected Goal: Reduction in pain sensation Outcome: Progressing as expected Problem: Respiratory Function - Impaired Goal: Able to cough effectively Outcome: Progressing as expected Goal: Adequate oxygenation Outcome: Progressing as expected Goal: Adequate work of breathing Outcome: Progressing as expected Goal: Patent airway Outcome: Progressing as expected are Tessa - Madison Dean RN - 09/15/2020 1:08 AM LOCKSTITCH COAT JOINER Problem: Discharge Planning Goal: Absence of venous thromboembolism Outcome: Progressing as expected Goal: Adequate for discharge Outcome: Progressing as expected Goal: Effective communication Outcome: Progressing as expected Problem: Falls, Risk of Goal: Absence of falls Outcome: Progressing as expected Problem: Infection, Risk of or Actual Goal: Absence of infection Outcome: Progressing as expected Problem: Pain Goal: Control of pain at or below patient's documented comfort goal Outcome: Progressing as expected Goal: Reduction in pain sensation Outcome: Progressing as expected Problem: Respiratory Function - Impaired Goal: Able to cough effectively Outcome: Progressing as expected Goal: Adequate oxygenation Outcome: Progressing as expected Goal: Adequate work of breathing Outcome: Progressing as expected Goal: Patent airway Outcome: Progressing as expected D Nurse Note - Danii Michelle RN - 09/14/2020 10:36 PM CSTPatient admitted to 2110 for diagnosis of PUI Patient agrees to admission, discussed plan of care with patient and family. Patient is awake, alert, oriented, resp reg unlabored, color appropriate for race, PIV intact No adverse reaction to medications administered while in ED Belongings with patient to unit Report to LIGIA Wallace D Nurse Note - Kendra Barnes RN - 09/14/2020 9:21 PM CSTPt report given to LIGIA Foy. D Nurse Note - Kendra Barnes RN - 09/14/2020 7:24 PM CSTAssumed care of patient in ER8. D Nurse Note - Kendra Barnes RN - 09/14/2020 7:23 PM CST1 minute walk test performed, patient O2 sat 91-92% on RA, HR 99. documented in this encounter Plan of Treatment Date Type Specialty Care Team Description 10/19/2020 Office Visit Dermatology Rudolph Hathaway MD [address] [place], [place] [address] Name Type Priority Associated Diagnoses Order S chedule TROPONIN I LAB Routine ONCE for 1 Occu rrences starting 2019 until 0 EKG-12 LEAD ROUTINE HEART STATION STAT SOB (shortness of ON CE for 1 Occurrences ONCE breath) starting 09/15/2020 COVID-19 virus until 020 infection Health Maintenance Due Date Last Done Comments Depression Screening 1942 DTaP,Tdap,and Td Vaccines (1 - Tdap) 1951 Zoster Recombinant Vaccine (SHINGRIX) (1 of 2) 1982 Medicare Wellness Visit 1997 PNEUMOCOCCAL VACCINES 65+ (1 of 1 - PPSV23) 1997 INFLUENZA VACCINE Completed 05/14/2020 documented as of this encounter Implants Implanted Type Area Shop Mechanic Device Shelf Model / Identifier Expiration Date Ser ial / Lot Acrysofiq Lens LENS Right: [place] 01/22/2021 [id number] [id number] / Implanted: Qty: 1 on 03/16/2016 by Griffin Herrera MD at [facility] Eye 1 [id number] / [id number] documented as of this encounter Procedures Procedure Name Priority Date/Time Associated Comments Diagnosis N-TERMINAL PRO-BNP Add-on 09/17/2020 4:45 Resul ts for this AM LOCKSTITCH COAT JOINER procedure are i n the results section. CBC WITH DIFF Routine 09/17/2020 4:45 Results fo r this AM LOCKSTITCH COAT JOINER procedure are i n the results section. COMP. METABOLIC PANEL Routine 09/17/2020 4:45 Re sults for this ([id number]) AM LOCKSTITCH COAT JOINER procedure are i n the results section. CBC WITH DIFF Routine 09/16/2020 4:36 Results fo r this AM LOCKSTITCH COAT JOINER procedure are i n the results section. ACUTE CARE VENOUS Routine 09/16/2020 4:36 Result s for this BLOOD GAS AM LOCKSTITCH COAT JOINER procedure are i n the results section. COMP. METABOLIC PANEL Routine 09/16/2020 4:36 Re sults for this ([id number]) AM LOCKSTITCH COAT JOINER procedure are i n the results section. TROPONIN I Routine 09/16/2020 4:36 Results for this AM LOCKSTITCH COAT JOINER procedure are i n the results section. OSMOLALITY SERUM Routine 09/16/2020 4:36 Results for this AM LOCKSTITCH COAT JOINER procedure are i n the results section. MAGNESIUM Routine 09/16/2020 4:36 Results for this AM LOCKSTITCH COAT JOINER procedure are i n the results section. URIC ACID Routine 09/16/2020 4:36 Results for this AM LOCKSTITCH COAT JOINER procedure are i n the results section. CT CHEST PULMONARY STAT 09/15/2020 11:20 SOB (shortness of Results for this ANGIOGRAM AM LOCKSTITCH COAT JOINER breath) procedure are i n the results section. URINALYSIS Routine 09/15/2020 9:30 Results for this AM LOCKSTITCH COAT JOINER procedure are i n the results section. PNEUMOCOCCAL ANTIGEN Routine 09/15/2020 9:27 Res ults for this AM LOCKSTITCH COAT JOINER procedure are i n the results section. URINE CULTURE Routine 09/15/2020 9:27 Results fo r this AM LOCKSTITCH COAT JOINER procedure are i n the results section. PROTEIN CREAT RATIO Routine 09/15/2020 9:26 Resu lts for this URINE RANDOM AM LOCKSTITCH COAT JOINER procedure are i n the results section. SODIUM, URINE RANDOM Routine 09/15/2020 9:26 Res ults for this AM LOCKSTITCH COAT JOINER procedure are i n the results section. UREA NITROGEN, URINE Routine 09/15/2020 9:26 Res ults for this RANDOM AM LOCKSTITCH COAT JOINER procedure are i n the results section. LEGIONELLA URINARY Routine 09/15/2020 9:26 Resul ts for this ANTIGEN TST AM LOCKSTITCH COAT JOINER procedure are i n the results section. OSMOLALITY URINE Routine 09/15/2020 9:26 Results for this AM LOCKSTITCH COAT JOINER procedure are i n the results section. ECHO ROUTINE W/DOPPLER Routine 09/15/2020 9:25 NSTEMI (non-ST COLOR AM LOCKSTITCH COAT JOINER elevated myocardial infarction) RESPIRATORY PANEL BY LASHAUN 09/15/2020 4:49 Res ults for this PCR AM LOCKSTITCH COAT JOINER procedure are i n the results section. PROCALCITONIN LASHAUN 09/15/2020 4:44 Results fo r this AM LOCKSTITCH COAT JOINER procedure are i n the results section. VITAMIN D, 25-OH LASHAUN 09/15/2020 4:44 Results for this AM LOCKSTITCH COAT JOINER procedure are i n the results section. PROTHROMBIN TIME / INR Routine 09/15/2020 4:44 R esults for this AM LOCKSTITCH COAT JOINER procedure are i n the results section. CBC WITH DIFF Routine 09/15/2020 4:44 Results fo r this AM LOCKSTITCH COAT JOINER procedure are i n the results section. SEDIMENTATION RATE LASHAUN 09/15/2020 4:44 Resul ts for this AM LOCKSTITCH COAT JOINER procedure are i n the results section. LIPID PANEL LASHAUN 09/15/2020 4:44 Results for this ([id number])(TOTAL AM LOCKSTITCH COAT JOINER procedure are in CHOLESTEROL, the results TRIGLYCERIDES, HDL) section. COMP. METABOLIC PANEL Routine 09/15/2020 4:44 Re sults for this ([id number]) AM LOCKSTITCH COAT JOINER procedure are i n the results section. THYROID STIMULATING LASHAUN 09/15/2020 4:44 Resu lts for this HORMONE AM LOCKSTITCH COAT JOINER procedure are i n the results section. TROPONIN I LASHAUN 09/15/2020 4:44 Results for this AM LOCKSTITCH COAT JOINER procedure are i n the results section. C-REACTIVE PROTEIN LASHAUN 09/15/2020 4:44 Resul ts for this AM LOCKSTITCH COAT JOINER procedure are i n the results section. VITAMIN B12, LEVEL LASHAUN 09/15/2020 4:44 Resul ts for this AM LOCKSTITCH COAT JOINER procedure are i n the results section. OSMOLALITY SERUM Routine 09/15/2020 4:44 Results for this AM LOCKSTITCH COAT JOINER procedure are i n the results section. MAGNESIUM LASHAUN 09/15/2020 4:44 Results for this AM LOCKSTITCH COAT JOINER procedure are i n the results section. URIC ACID LASHAUN 09/15/2020 4:44 Results for this AM LOCKSTITCH COAT JOINER procedure are i n the results section. CREATINE KINASE LASHAUN 09/15/2020 4:44 Results for this AM LOCKSTITCH COAT JOINER procedure are i n the results section. LACTATE DEHYDROGENASE LASHAUN 09/15/2020 4:44 Re sults for this AM LOCKSTITCH COAT JOINER procedure are i n the results section. PHOSPHORUS LASHAUN 09/15/2020 4:44 Results for this AM LOCKSTITCH COAT JOINER procedure are i n the results section. ACUTE CARE VENOUS Routine 09/15/2020 4:43 Result s for this BLOOD GAS AM LOCKSTITCH COAT JOINER procedure are i n the results section. HB ECG ROUTINE & LASHAUN 09/15/2020 4:12 NSTEMI (non-ST RHYTHM STRIP AM LOCKSTITCH COAT JOINER elevated myocardial infarction) LAB ONLY COVID Routine 09/14/2020 9:00 SOB (shortness of Resu lts for this INTERPRETATION PM LOCKSTITCH COAT JOINER breath) procedure are in the results section. COVID-19 (ID NOW RAPID STAT 09/14/2020 9:00 SOB (shortness of Results for this TESTING) PM LOCKSTITCH COAT JOINER breath) procedure are i n the results section. COMP. METABOLIC PANEL STAT 09/14/2020 8:58 SOB (shortness of Results for this (36647) PM LOCKSTITCH COAT JOINER breath) procedure are i n the results section. HB ECG ROUTINE & STAT 09/14/2020 8:18 SOB (shortness of RHYTHM STRIP PM LOCKSTITCH COAT JOINER breath) N-TERMINAL PRO-BNP STAT 09/14/2020 7:56 SOB (shortness of Results for this PM LOCKSTITCH COAT JOINER breath) procedure are i n the results section. D-DIMER STAT 09/14/2020 7:56 SOB (shortness of Result s for this PM LOCKSTITCH COAT JOINER breath) procedure are i n the results section. GLYCOSYLATED LASHAUN Add-On 09/14/2020 7:56 Results for this HEMOGLOBIN (A1C) PM LOCKSTITCH COAT JOINER procedure a re in the results section. CBC WITH DIFF STAT 09/14/2020 7:56 SOB (shortness of Resul ts for this PM LOCKSTITCH COAT JOINER breath) procedure are i n the results section. TROPONIN I STAT 09/14/2020 7:56 SOB (shortness of Result s for this PM LOCKSTITCH COAT JOINER breath) procedure are i n the results section. FERRITIN SERUM STAT 09/14/2020 7:56 SOB (shortness of Resu lts for this PM LOCKSTITCH COAT JOINER breath) procedure are i n the results section. LACTATE DEHYDROGENASE STAT 09/14/2020 7:56 SOB (shortness of Results for this PM LOCKSTITCH COAT JOINER breath) procedure are i n the results section. XR CHEST 1 VW STAT 09/14/2020 5:43 SOB (shortness of Resul ts for this PM LOCKSTITCH COAT JOINER breath) procedure are i n the results section. documented in this encounter Results N-TERMINAL PRO-BNP (09/17/2020 4:45 AM LOCKSTITCH COAT JOINER) Pathologist Sig nature NT-proBNP 1,150 (H) <=450 pg/mL [facility] Specimen Blood - VENOUS Narrative Performed At [facility] has been reported to cause a negative [facility] bias, interpret results relative to patient's use of biotin. Performing Organization Address City/State/Zipcode Phone Number [facility] CLIA: [id number] [place], [place] [id number] LABORATORY [address] COMP. METABOLIC PANEL ([id number]) (09/17/2020 4:45 AM LOCKSTITCH COAT JOINER) Pathologist Sig nature NA 130 (L) 135 - 145 [facility] mmol/L [facility] K 4.7 3.5 - 5.0 [facility] mmol/L [facility] CL 98 98 - 108 mmol/L [facility] CO2 TOTAL 27 23 - 31 mmol/L [facility] AGAP 5 2 - 16 [facility] BUN 26 (H) 7 - 23 mg/dL [facility] GLUCOSE 119 (H) 70 - 110 mg/dL [facility] CREATININE 0.75 0.60 - 1.25 [facility] mg/dL [facility] TOTAL BILI 1.0 0.1 - 1.1 mg/dL [facility] CALCIUM 8.2 (L) 8.6 - 10.6 [facility] mg/dL [facility] T PROTEIN 5.5 (L) 6.3 - 8.2 g/dL [facility] ALBUMIN 2.7 (L) 3.5 - 5.0 g/dL [facility] ALK PHOS 57 34 - 122 U/L [facility] ALTv 24 5 - 50 U/L [facility] AST(SGOT) 57 (H) 13 - 40 U/L [facility] eGFR Calculation 98.3 mL/min/1.73m2 [facility] [place] eGFR Calculation 119.1 mL/min/1.73m2 [facility] ([facility]) [facility] Specimen Blood - VENOUS Narrative Performed At Association of Glomerular Filtration Rate (GFR) [facility] and Staging of Kidney Disease* + + +- + | GFR (mL/min/1.73 m2) | With Kidney Damage | Without Kidney Damage + + +- + | >90 | Stage one | Normal + + +- + | 60-89 | Stage two | Decreased GFR + + +- + | 30-59 | Stage three | Stage three + + +- + | 15-29 | Stage four | Stage four + + +- + | <15 (or dialysis) | Stage five | Stage five + + +- + *Each stage assumes the associated GFR level has been in effect for at least three months. Stages 1 to 5, with or without kidney disease, indicate chronic kidney disease. Notes: Determination of stages one and two (with eGFR >59mL/min/1.73 m2) requires estimation of kidney damage for at least three months as defined by structural or functional abnormalities of the kidney, manifested by either: Pathological abnormalities or Markers of kidney damage (including abnormalities in the composition of the blood or urine or abnormalities in imaging tests). Performing Organization Address City/State/Zipcode Phone Number [facility] CLIA: [id number] [place] [address] CBC WITH DIFF (09/17/2020 4:45 AM LOCKSTITCH COAT JOINER) Pathologist [facility] nature WBC 15.35 (H) 4.20 - 10.70 [facility] 10*3/L [facility] RBC 5.24 4.26 - 5.52 [facility] 10*6/L [facility] HGB 16.0 12.2 - 16.4 [facility] g/dL [facility] HCT 46.6 38.4 - 49.3 % [facility] MCV 88.9 81.7 - 95.6 fL [facility] MCH 30.5 26.1 - 32.7 pg [facility] MCHC 34.3 31.2 - 35.0 [facility] g/dL [facility] RDW-SD 39.9 38.5 - 51.6 fL [facility] RDW-CV 12.3 12.1 - 15.4 % [facility] PLT 291 150 - 328 [facility] 10*3/L [facility] MPV 11.3 9.8 - 13.0 fL [facility] NRBC/100 WBC 0.0 0.0 - 10.0 /100 [facility] WBCs [facility] NRBC x10^3 <0.01 10*3/L [facility] GRAN MAT (NEUT) % 89.8 % [facility] IMM GRAN % 1.10 % [facility] LYMPH % 6.1 % [facility] MONO % 2.7 % [facility] EOS % 0.0 % [facility] BASO % 0.3 % [facility] GRAN MAT x10^3(ANC) 13.79 (H) 1.99 - 6.95 [facility] 10*3/uL [facility] IMM GRAN x10^3 0.17 (H) 0.00 - 0.06 [facility] 10*3/uL [facility] LYMPH x10^3 0.94 (L) 1.09 - 3.23 [facility] 10*3/uL [facility] MONO x10^3 0.41 0.36 - 1.02 [facility] 10*3/uL [facility] EOS x10^3 <0.03 (L) 0.06 - 0.53 [facility] 10*3/uL [facility] BASO x10^3 0.04 0.01 - 0.09 [place] [address]*3/uL [facility] Specimen Blood - VENOUS Performing Organization Address City/State/Zipcode Phone Number [facility] CLIA: [id number] [place] [address] ACUTE CARE VENOUS BLOOD GAS (09/16/2020 4:36 AM LOCKSTITCH COAT JOINER) Pathologist Sig nature PH 7.39 7.32 - 7.42 [facility] PCO2 [place] 42 41 - 51 mmHg [facility] PO2 [place] 25 25 - 40 mmHg [facility] HCO3 [place] 25 24 - 28 mEq/L [facility] AC VBE(BEAKER) 0.0 mEq/L [facility] Specimen Blood - LINE, VENOUS Performing Organization Address City/[facility]/Zipcode Phone Number [facility] CLIA: [id number] [place] [address] OSMOLALITY SERUM (09/16/2020 4:36 AM LOCKSTITCH COAT JOINER) Pathologist Sig nature OSMOLALITY 285 278 - 305 mOsm/kg [facility]ICE S Specimen Blood - VENOUS Performing Organization Address City/[facility] Phone Number [facility] CLIA: [id number] [place], [place] [address] [address] [place] [address] MAGNESIUM (09/16/2020 4:36 AM LOCKSTITCH COAT JOINER) Pathologist Sig nature MAGNESIUM 2.5 (H) 1.7 - 2.4 mg/dL [facility] [facility] LAB[facility]ATORY Specimen Blood - VENOUS Performing Organization Address [facility] Phone Number [facility] CLIA: [id number] [place] [address] URIC ACID (09/16/2020 4:36 AM LOCKSTITCH [employer]ER) Pathologist Sig nature URIC ACID 5.7 3.6 - 8.0 mg/dL [facility] Specimen Blood - VENOUS Performing Organization Address City/[facility] Phone Number [facility] CLIA: [id number] [place] [address] TROPONIN I (09/16/2020 4:36 AM [employer]) Pathologist Sig nature TROPONIN I 0.039 (H) <=0.034 ng/mL [facility] Specimen Blood - VENOUS Narrative Performed At Equal or Less than 0.034 ng/ml---Normal [facility] Note: Cardiac troponin begins to rise 3-4 hours after the onset of ischemia. Repeat in 4-6 hours if the sample was drawn within 3-4 hours of the onset of the symptom and found normal. Between 0.035 and 0.120 ng/mL--- Borderline. Questionable myocardial injury or necros is Note: Serial measurement may be necessary to confirm or exclude the diagnosis of myocardial injury or necrosis; Clinical correlation (symptoms, EKGs, imaging studies, and others) required; Repeat in 4-6 hours if clinically indicated. Equal or Higher than 0.121 ng/mL---Abnormal. Myocardial Injury or Necrosis Likely Biotin has been reported to cause a negative bias, interpret results relative to patient's use of biotin. Performing Organization Address City/State/Zipcode Phone Number [facility] CLIA: [id number] [place] [address] COMP. METABOLIC PANEL ([id number]) (09/16/2020 4:36 AM L[employer]) Pathologist Sig nature NA 129 (L) 135 - 145 [facility] mmol/L [facility] LABORATORY K 4.6 3.5 - 5.0 [facility] mmol/L [facility] LAB[facility] CL 93 (L) 98 - 108 mmol/L [facility] CO2 TOTAL 29 23 - 31 mmol/L [facility] AGAP 7 2 - 16 [facility] BUN 25 (H) 7 - 23 mg/dL [facility] GLUCOSE 128 (H) 70 - 110 mg/dL [facility] CREATININE 0.77 0.60 - 1.25 [facility] mg/dL [facility] LAB[facility] TOTAL BILI 0.9 0.1 - 1.1 mg/dL [facility] CALCIUM 8.5 (L) 8.6 - 10.6 [facility] mg/dL [facility] LABORAT[facility] T PROTEIN 6.0 (L) 6.3 - 8.2 g/dL [facility] ALBUMIN 3.1 (L) 3.5 - 5.0 g/dL [facility] ALK PHOS 60 34 - 122 U/L [facility] ALTv 20 5 - 50 U/L [facility] AST(SGOT) 52 (H) 13 - 40 U/L [facility] eGFR Calculation 95.3 mL/min/1.73m2 [facility] ([facility] [place]) eGFR Calculation 115.6 mL/min/1.73m2 [facility] ([facility]) [facility] LABORATORY Specimen Blood - VENOUS Narrative Performed At Association of Glomerular Filtration Rate (GFR) [facility] LAB[facility] and Staging of Kidney Disease* + + +- + | GFR (mL/min/1.73 m2) | With Kidney Damage | Without Kidney Damage + + +- + | >90 | Stage one | Normal + + +- + | 60-89 | Stage two | Decreased GFR + + +- + | 30-59 | Stage three | Stage three + + +- + | 15-29 | Stage four | Stage four + + +- + | <15 (or dialysis) | Stage five | Stage five + + +- + *Each stage assumes the associated GFR level has been in effect for at least three months. Stages 1 to 5, with or without kidney disease, indicate chronic kidney disease. Notes: Determination of stages one and two (with eGFR >59mL/min/1.73 m2) requires estimation of kidney damage for at least three months as defined by structural or functional abnormalities of the kidney, manifested by either: Pathological abnormalities or Markers of kidney damage (including abnormalities in the composition of the blood or urine or abnormalities in imaging tests). Performing Organization Address City/State/Zipcode Phone Number [facility] CLIA: [id number] [place], [place] [id number] LABORATORY [address] CBC WITH DIFF (09/16/2020 4:36 AM LOCKSTITCH [employer]ER) [facility] WBC 11.51 (H) 4.20 - 10.70 [facility] 10*3/L [facility] LAB[facility] RBC 5.42 4.26 - 5.52 [facility] 10*6/L [facility] HGB 16.4 12.2 - 16.4 [facility] g/dL [facility] HCT 48.4 38.4 - 49.3 % [facility] MCV 89.3 81.7 - 95.6 fL [facility] MCH 30.3 26.1 - 32.7 pg [facility] MCHC 33.9 31.2 - 35.0 [facility] g/dL [facility] LAB[facility] RDW-SD 41.2 38.5 - 51.6 fL [facility] RDW-CV 12.5 12.1 - 15.4 % [facility] PLT 250 150 - 328 [facility] 10*3/L HOSPITAL LABORATORY MPV 10.5 9.8 - 13.0 fL [facility] NRBC/100 WBC 0.0 0.0 - 10.0 /100 [facility] WBCs [facility] LAB[facility] NRBC x10^3 <0.01 10*3/L [facility] GRAN MAT (NEUT) % 86.9 % [facility] IMM GRAN % 0.90 % [facility] LYMPH % 7.7 % [facility] MONO % 4.3 % [facility] EOS % 0.0 % [facility] BASO % 0.2 % [facility] GRAN MAT x10^3(ANC) 10.01 (H) 1.99 - 6.95 [facility] 10*3/uL [facility] LAB[facility] IMM GRAN x10^3 0.10 (H) 0.00 - 0.06 [facility] 10*3/uL [facility] LAB[facility] LYMPH x10^3 0.89 (L) 1.09 - 3.23 [facility] 10*3/uL [facility] LAB[facility] MONO x10^3 0.49 0.36 - 1.02 [facility] 10*3/uL [facility] LAB[facility] EOS x10^3 <0.03 (L) 0.06 - 0.53 [facility] 10*3/uL [facility] LABOR[facility] BASO x10^3 <0.03 0.01 - 0.09 [facility] 10*3/uL [facility] LABORATORY Specimen Blood - VENOUS Performing Organization Address City/State/Zipcode Phone Number [facility] CLIA: [id number] [place] [address] CHEST PULMONARY ANGIOGRAM (09/15/2020 11:20 AM [employer]) Specimen Narrative Performed At This result has an attachment that is no t available. HISTORY: Positive d-dimer, rule out P.E. PACS/VR/DOSE TECHNIQUE: Contrast-enhanced 64-mutidetector CT scan o f the chest was completed with intravenous injection of non ionic co ntrast medium. Subsequently numerous sagittal, coronal and MIP reform ations were generated. FINDINGS: Included portions of the thyroid gland appea r normal. Trachea and central bronchial airways appear unremarkable. No acute pulmonary thromboembolism detected. No aortic aneurysm or aortic dissection. 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 Scattered slightly enlarged lymph nodes are seen surro unding the sheldon and in the subcarinal space. Bilateral groundglass hazy pu lmonary infiltrates are seen, predominantly peripherally based. No pneumot horax or pleural effusion or pericardial effusion. No aggressive bone lesions. Thoracic degenerative spon dylosis noted. Visualized upper abdominal organs are unremarkable. CONCLUSIONS: 1. No acute pulmonary thromboembolism. 2. Moderate bilateral pulmonary airspace disease, cons istent with possibility of COVID-19 infection. Please correlate. Procedure Note [facility], Radiant Results Inft User - 2019 11:25 AM LOCKSTITCH COAT JOINER HISTORY: Positive d-dimer, rule out P.E. TECHNIQUE: Contrast-enhanced 64-mutidete ctor CT scan of the chest was completed with intravenous injection of non ionic contrast medium. Subsequently numerous sagittal, coronal and MIP reformations were generated. FINDINGS: Included portions of the thyro id gland appear normal. Trachea and central bronchial airways appear unremar kable. No acute pulmonary thromboembolism detec jagruti. No aortic aneurysm or aortic dissection. Moderate generalized triple vessel coronary atherosclerosis is noted. Scattered slightly enlarged lymph nodes are seen surrounding the sheldon and in the subcarinal space. Bilateral groun dglass hazy pulmonary infiltrates are seen, predominantly peripherally bas ed. No pneumothorax or pleural effusion or pericardial effusion. No aggressive bone lesions. Thoracic deg enerative spondylosis noted. Visualized upper abdominal organs are un remarkable. CONCLUSIONS: 1. No acute pulmonary thromboembolism. 2. Moderate bilateral pulmonary airspace disease, consistent with possibility of COVID-19 infection. Pleas e correlate. Performing Organization Address City/State/Zipcode Phone Number PACS/VR/DOSE URINALYSIS (09/15/2020 9:30 AM L[employer]ITCH [employer]ER) Pathologist Sig nature APPEARANCE Clear Clear [facility] COLOR Yellow Yellow [facility] PH 6.0 4.8 - 8.0 [facility] SP GRAVITY 1.016 1.003 - 1.030 [facility] GLU U QUAL Normal Normal [facility] BLOOD Negative Negative [facility] KETONES 20 mg/dL (A) Negative [facility] PROTEIN Negative Negative [facility] UROBILIN Normal Normal [facility] BILIRUBIN Negative Negative [facility] NITRITE Negative Negative [facility] LEUK OMAR Negative Negative [facility] RBC/HPF 1 0 - 3 HPF [facility] WBC/HPF <1 0 - 5 HPF [facility] BACTERIA Negative Negative [facility] MUCOUS Slight (A) Negative LPF [facility] Specimen Urine - URINE, CLEAN CATCH Performing Organization Address [facility] Phone Number [facility] CLIA: [id number] [place] [address] PNEUMOCOCCAL ANTIGEN (09/15/2020 9:27 AM L[employer]ITCH [employer]ER) Pathologist Sig nature S. pneumoniae antigen Negative Negative [facility]OR[facility] SERVICES Specimen Urine - URINE, CLEAN CATCH Performing Organization Address [facility] Number [facility] SERVICES CLIA: [id number] [place] [address] [place] [address] URINE CULTURE (09/15/2020 9:27 AM LOCKSTITCH COAT JOINER) URINE CULTURE > 100,000 CFU/mL mixed [facility] aerobic organisms - SERVICES suggests endogenous microbial contamination Specimen Urine - URINE, CLEAN CATCH Performing Organization Address [facility] Number [facility] CLIA: [id number] [place] [address] [place] [address] LEGIONELLA URINARY ANTIGEN TST (09/15/2020 9:26 AM L[employer]ITCH [employer] JOINER) Pathologist Sig nature Legionella Urinary Negative Negative [facility] Antigen SERVICES Specimen Urine - URINE, CLEAN CATCH Narrative Performed At Negative for L. pneumophilia serogroup I antigen in ur ine [facility] SERVICES suggesting no recent or current infection. Infection d ue to Legionella cannot be ruled out since other serogroups and species may cause disease. Furthermore, antigens may n ot be present in urine during early stage of infection, or t he level of antigen present in urine may be below the det ection limit of the test. Performing Organization Address [facility] Phone Number [facility] SERVICES CLIA: [id number] [place] [address] [place] [address] UREA NITROGEN, URINE RANDOM (09/15/2020 9:26 AM L[employer]ITCH [employer] JOINER) Pathologist Sig nature UREA N UR 1,045 mg/dL [facility] SERVICES Specimen Urine - URINE, CLEAN CATCH Performing Organization Address [facility] Phone Number [facility] CLIA: [id number] [place] [address] [place] [address] SODIUM, URINE RANDOM (09/15/2020 9:26 AM LOCKSTITCH CO[employer] JOINER) Pathologist Sig nature NA URINE 21 mmol/L [facility] Specimen Urine - URINE, CLEAN CATCH Performing Organization Address [facility] Phone Number [facility] CLIA: [id number] [place] [address] PROTEIN CREAT RATIO URINE RANDOM (09/15/2020 9:26 AM L[employer]ITCH [employer] JOINER) Pathologist Sig nature T. PROT U 19 mg/dL [facility] CREAT U 107.2 mg/dL [facility] Protein/Creatinine 0.2 0.0 - 2.0 [facility] LABORATORY Specimen Urine - URINE, CLEAN CATCH Narrative Performed At Random Urine Total Protein Reference [facility] LABORATORY Random Specimen: Less than 10 mg/dL First Morning Specimen: Less than 20 mg/dL Performing Organization Address [facility] Phone Number [facility] CLIA: [id number] [place] [address] OSMOLALITY URINE (09/15/2020 9:26 AM L[employer]ITCH [employer] JOINER) Pathologist Sig nature OSMO U 535 50-1,100 mOsm/kg [facility] SERVICES Specimen Urine - URINE, CLEAN CATCH Performing Organization Address [facility] Phone Number [facility] CLIA: [id number] [place] [address] [place] [address] RESPIRATORY PANEL BY PCR (09/15/2020 4:49 AM L[employer]ITCH [employer] JOINER) Pathologist Sig nature Adenovirus Negative Negative [facility] Coronavirus HKU1 Negative Negative [facility] Coronavirus NL63 Negative Negative [facility] Coronavirus 229E Negative Negative [facility] Coronavirus OC43 Negative Negative [facility] Human Metapneumovirus Negative Negative [facility] Human Negative Negative [facility] Rhinovirus/Enterovirus SERVICES Influenza A Negative Negative [facility] Influenza B Negative Negative [facility] Parainfluenza Virus 1 Negative Negative [facility] Parainfluenza Virus 2 Negative Negative [facility] Parainfluenza Virus 3 Negative Negative [facility] Parainfluenza Virus 4 Negative Negative [facility] Respiratory Syncytial Negative Negative [facility] Virus SERVICES Bordetella parapertussis Negative Negative [facility] Bordetella pertussis Negative Negative [facility] Chlamydia pneumoniae Negative Negative [facility] Mycoplasma pneumoniae Negative Negative [facility] Specimen Swab - NASOPHARYNGEAL SWAB Narrative Performed At Negative: [facility] A negative result does not rule-out infection. This assay does not test for all potential infectio us agents. Positive: A positive test result does not necessarily indicate t he presence of viable organism. Performing Organization Address City/[facility] Phone Number [facility] CLIA: [id number] [place] [address] [place] [address] PROTHROMBIN TIME / INR (09/15/2020 4:44 AM L[employer]STITCH [employer] JOINER) PROTIME PATIENT 14.4 12.0 - 14.7 [facility] LABORATORY INR 1.2Comment: Normal [facility] INR <1.1; Warfarin [facility] Therapeutic range LABORATORY 2.0 to 3.0 or 2.5 to 3.5, depending upon the indications. Specimen Blood - ARM, LEFT Performing Organization Address [facility] Phone Number [facility] CLIA: [id number] [place] [address] OSMOLALITY SERUM (09/15/2020 4:44 AM LOCKSTITCH CO[employer] JOINER) Pathologist Sig nature OSMOLALITY 273 (L) 278 - 305 mOsm/kg [facility] SERVICE S Specimen Blood - ARM, LEFT Performing Organization Address [facility] Phone Number [facility] CLIA: [id number] [place] [address] [place] [address] COMP. METABOLIC PANEL ([id number]) (09/15/2020 4:44 AM L[employer]STITCH CO[employer] JOINER) Pathologist Sig nature NA 127 (L) 135 - 145 [facility] mmol/L [facility] LABORATORY K 3.6 3.5 - 5.0 [facility] mmol/L [facility] CL 90 (L) 98 - 108 mmol/L [facility] CO2 TOTAL 29 23 - 31 mmol/L [facility] AGAP 8 2 - 16 [facility] BUN 24 (H) 7 - 23 mg/dL [facility] GLUCOSE 86 70 - 110 mg/dL [facility] CREATININE 0.90 0.60 - 1.25 [facility] mg/dL [facility] LAB[facility] TOTAL BILI 1.1 0.1 - 1.1 mg/dL [facility] CALCIUM 8.2 (L) 8.6 - 10.6 [facility] mg/dL [facility] LABORAT[facility] T PROTEIN 6.2 (L) 6.3 - 8.2 g/dL [facility] ALBUMIN 3.2 (L) 3.5 - 5.0 g/dL [facility] ALK PHOS 66 34 - 122 U/L [facility] ALTv 22 5 - 50 U/L [facility] AST(SGOT) 59 (H) 13 - 40 U/L [facility] eGFR Calculation 79.6 mL/min/1.73m2 [facility] ([facility] LABORATORY [facility] [place]) eGFR Calculation 96.5 mL/min/1.73m2 [facility] () [facility] LABORATORY Specimen Blood - ARM, LEFT Narrative Performed At [facility] of Glomerular Filtration Rate (GFR) [facility] and Staging of Kidney Disease* + + +- + | GFR (mL/min/1.73 m2) | With Kidney Damage | Without Kidney Damage + + +- + | >90 | Stage one | Normal + + +- + | 60-89 | Stage two | Decreased GFR + + +- + | 30-59 | Stage three | Stage three + + +- + | 15-29 | Stage four | Stage four + + +- + | <15 (or dialysis) | Stage five | Stage five + + +- + *Each stage assumes the associated GFR level has been in effect for at least three months. Stages 1 to 5, with or without kidney disease, indicate chronic kidney disease. Notes: Determination of stages one and two (with eGFR >59mL/min/1.73 m2) requires estimation of kidney damage for at least three months as defined by structural or functional abnormalities of the kidney, manifested by either: Pathological abnormalities or Markers of kidney damage (including abnormalities in the composition of the blood or urine or abnormalities in imaging tests). Performing Organization Address City/State/Zipcode Phone Number [facility] CLIA: [id number] [place] [address] CBC WITH DIFF (09/15/2020 4:44 AM L[employer]STITCH [employer] JOINER) Pathologist Sig nature WBC 7.46 4.20 - 10.70 [facility] 10*3/L [facility] LABORATORY RBC 5.27 4.26 - 5.52 [facility] 10*6/L [facility] LABORATORY HGB 16.1 12.2 - 16.4 [facility] g/dL [facility] LABORAT[facility] HCT 46.9 38.4 - 49.3 % [facility] MCV 89.0 81.7 - 95.6 fL [facility] MCH 30.6 26.1 - 32.7 pg [facility] MCHC 34.3 31.2 - 35.0 [facility] g/dL [facility] LABORATORY RDW-SD 40.2 38.5 - 51.6 fL [facility] RDW-CV 12.3 12.1 - 15.4 % [facility] PLT 225 150 - 328 [facility] 10*3/L [facility] LABORATORY MPV 10.5 9.8 - 13.0 fL [facility] NRBC/100 WBC 0.0 0.0 - 10.0 /100 [facility] WBCs [facility] LABORATORY NRBC x10^3 <0.01 10*3/L [facility] GRAN MAT (NEUT) % 70.7 % [facility] IMM GRAN % 0.70 % [facility] LYMPH % 16.1 % [facility] MONO % 12.1 % [facility] EOS % 0.0 % [facility] BASO % 0.4 % [facility] GRAN MAT x10^3(ANC) 5.28 1.99 - 6.95 [facility] 10*3/uL [facility] LABORATORY IMM GRAN x10^3 0.05 0.00 - 0.06 [facility] 10*3/uL HOSPITAL LABORATORY LYMPH x10^3 1.20 1.09 - 3.23 [facility] 10*3/uL HOSPITAL LABORATORY MONO x10^3 0.90 0.36 - 1.02 [facility] 10*3/uL HOSPITAL LABORATORY EOS x10^3 <0.03 (L) 0.06 - 0.53 [facility] 10*3/uL HOSPITAL LABORATORY BASO x10^3 0.03 0.01 - 0.09 [facility] 10*3/uL HOSPITAL LABORATORY Specimen Blood - ARM, LEFT Performing Organization Address [facility] Phone Number [facility] CLIA: [id number] [place] [address] TROPONIN I (09/15/2020 4:44 AM [employer]) Pathologist Sig nature TROPONIN I 0.088 (H) <=0.034 ng/mL [facility] Specimen Blood - ARM, LEFT Narrative Performed At Equal or Less than 0.034 ng/ml---Normal [facility] Note: Cardiac troponin begins to rise 3-4 hours after the onset of ischemia. Repeat in 4-6 hours if the sample was drawn within 3-4 hours of the onset of the symptom and found normal. Between 0.035 and 0.120 ng/mL--- Borderline. Questionable myocardial injury or necros is Note: Serial measurement may be necessary to confirm or exclude the diagnosis of myocardial injury or necrosis; Clinical correlation (symptoms, EKGs, imaging studies, and others) required; Repeat in 4-6 hours if clinically indicated. Equal or Higher than 0.121 ng/mL---Abnormal. Myocardial Injury or Necrosis Likely Biotin has been reported to cause a negative bias, interpret results relative to patient's use of biotin. Performing Organization Address [facility] Phone Number [facility] CLIA: [id number] [place], [place] [address] LABORATORY [address] PROCALCITONIN (09/15/2020 4:44 AM L[employer]STITCH [employer] JOINER) Pathologist Sig nature Procalcitonin 0.09 (H) <0.07 ng/mL [facility] SERVICES Specimen Blood - ARM, LEFT Narrative Performed At INTERPRETATION OF PROCALCITONIN RESULTS IN ADULTS >= 1 8 [facility] YEARS OF AGE Initiation and discontinuation of antibiotics on patie nts with suspected or confirmed Lower Respiratory Tract Infection in Adults >= 18 years of age. + + + +----- ------ + |Procalcitonin |Interpretation |Antibiotic |Considerations |ng/mL | |recommend ation | + + + +----- ------ + | <0.1 | Bacterial | Strongly | | | infection very | discouraged | Overruling: | | unlikely | | Clinically unstable + + + + H igh risk for adverse | <0.25 | Bacterial | Discouraged | outcome | | infection | | SEE IMPORTANT NOTE | | unlikely | | + + + +----- ------ + | >=0.25 | Bacterial | Encouraged | | | infection | | | | likely | | Consider treatment failure + + + + if l evels does not decrease | >0.5 | Bacterial | Strongly | appropriately | | infection very | encouraged | | | likely | | + + + +----- ------ + Discontinuation of antibiotics in high-acuity patients with suspected or confirmed sepsis in Adults >= 18 years of age. + + + +----- ------ + |Procalcitonin |Interpretation |Antibiotic |Considerations |ng/mL | |recommend ation | + + + +----- ------ + | <0.25 | Bacterial | Strongly | | | infection very | discouraged | Overruling: | | unlikely | | Clinically unstable + + + + H igh risk for adverse | <0.5 or drop | Bacterial | Discouraged | outcome | >80% from | infection | | SEE IMPORTANT NOTE | highest PCT | unlikely | | | level | | | + + + +----- ------ + | >=0.5 | Bacterial | Encouraged | | | infection | | | | likely | | Consider treatment failure + + + + if l evels does not decrease | >1.0 | Bacterial | Strongly | appropriately | | infection very | encouraged | | | likely | | + + + +----- ------ + Percentage of drop of Procalcitonin calculation for Discontinuation of antibiotics in high-acuity patients with suspected or confirmed sepsis in Adults >= 18 years of age. Procalcitonin highest{}-Procalcitonin current{} Delta Procalcitonin = x100% Procalcitonin current {} IMPORTANT NOTE: Procalcitonin may be elevated without bacterial infection by physiologic stress related to t rauma, leon, chronic dialysis, metastatic cancer, surgery in the past seven days, malaria, some fungal infections, and some forms of vasculitis. The interpretation algorithm may not apply to patients with immunosuppression (equivalent o f >10 mg of prednisone daily), HIV with CD4 cell count < 350 cells/mm3, active malignancy on systemic chemotherapy, solid organ transplant or hematopoietic stem cell transplant ation, or hospital acquired pneumonia. Additionally, some cli nical trials of procalcitonin have excluded patients with sh ock requiring vasopressor use, acute respiratory failure requiring mechanical ventilation, or those with known lung abscess/empyema. For further information please refer to: [email or web address] Performing Organization Address City/State/Zipcode Phone Number [facility] CLIA: [id number] [place] [address] [place] [address] CREATINE KINASE (09/15/2020 4:44 AM LOCKSTITCH CO[employer] JOINER) Pathologist Sig [facility] CK 138 33 - 194 U/L [facility] Specimen Blood - ARM, LEFT Performing Organization Address City/[facility] Phone Number [facility] CLIA: [id number] [place] [address] URIC ACID (09/15/2020 4:44 AM L[employer]STITCH [employer] JOINER) Pathologist Sig [facility] URIC ACID 5.8 3.6 - 8.0 mg/dL [facility] Specimen Blood - ARM, LEFT Performing Organization Address City/[facility] Phone Number [facility] CLIA: [id number] [place] [address] VITAMIN D, 25-OH (09/15/2020 4:44 AM L[employer]ITCH [employer]ER) Pathologist Sig [facility] VIT D 25OH 19 (L) 25 - 80 ng/mL [facility] Specimen Blood - ARM, LEFT Narrative Performed At Deficiency: <20 ng/mL [facility] Insufficiency: 20-24 ng/mL Optimal: 25-80 ng/mL Performing Organization Address [facility] Phone Number [facility] CLIA: [id number] [place] [address] [place] [address] VITAMIN B12, LEVEL (09/15/2020 4:44 AM L[employer]ITCH [employer] JOINER) Pathologist [facility] VIT B12 581 240 - 930 pg/mL [facility] Specimen Blood - ARM, LEFT Narrative Performed At Biotin has been reported to cause a positive bias, int erpret [facility] results relative to patient's use of biotin. Performing Organization Address City/[facility] Phone Number [facility] CLIA: [id number] [place] [address] [place] [address] LACTATE DEHYDROGENASE (09/15/2020 4:44 AM LOCKSTITCH [employer]ER) Pathologist Sig [facility] LDH 805 (H) 300 - 600 U/L [facility] Specimen Blood - ARM, LEFT Performing Organization Address [facility] Phone Number [facility] CLIA: [id number] [place] [address] C-REACTIVE PROTEIN (09/15/2020 4:44 AM L[employer]ITCH [employer]ER) Pathologist Sig nature CRP 10.5 (H) <0.8 mg/dL [facility] Specimen Blood - ARM, LEFT Performing Organization Address City/[facility] Phone Number [facility] CLIA: [id number] [place] [address] [place] [address] Blvd SEDIMENTATION RATE (09/15/2020 4:44 AM L[employer]ITCH [employer]ER) Pathologist Sig nature ESR 12 (H) 0 - 10 mm/HR [facility] Specimen Blood - ARM, LEFT Performing Organization Address [facility] Phone Number [facility] CLIA: [id number] [place] [address] PHOSPHORUS (09/15/2020 4:44 AM L[employer]ITCH [employer] JOINER) Pathologist Sig nature PHOSPHORUS 2.7 2.5 - 5.0 mg/dL [facility] Specimen Blood - ARM, LEFT Performing Organization Address [facility] Phone Number [facility] CLIA: [id number] [place] [address] MAGNESIUM (09/15/2020 4:44 AM L[employer]ITCH [employer] JOINER) Pathologist Sig nature MAGNESIUM 2.2 1.7 - 2.4 mg/dL [facility] Specimen Blood - ARM, LEFT Performing Organization Address [facility] Phone Number [facility] CLIA: [id number] [place] [address] LIPID PANEL ([id number])(TOTAL CHOLESTEROL, TRIGLYCERIDES, HDL) (09/15/2020 4:44 AM L[employer]STITCH [employer] JOINER) Pathologist Sig nature CHOL 116 (L) 120 - 200 mg/dL [facility] HDL 24 (L) >40 mg/dL [facility] HDLC RATIO 4.8 <=5.0 [facility] TRIG 83 30 - 170 mg/dL [facility] LDL CHOL 75 <=160 mg/dL [facility] VLDL 17 5 - 60 mg/dL [facility] Specimen Blood - ARM, LEFT Performing Organization Address [facility]/Zipcode Phone Number [facility] CLIA: [id number] [place] [address] [address] THYROID STIMULATING HORMONE (09/15/2020 4:44 AM L[employer]ITCH [employer]ER) Pathologist Sig nature TSH 2.18 0.45 - 4.70 mIU/L [facility] Specimen Blood - ARM, LEFT Performing Organization Address [facility] Phone Number [facility] CLIA: [id number] [place] [address] [facility] ACUTE CARE VENOUS BLOOD GAS (09/15/2020 4:43 AM L[employer]STITCH [employer] JOINER) Pathologist Sig nature PH 7.43 (H) 7.32 - 7.42 [facility] PCO2 LIBERTY 41 41 - 51 mmHg [facility] PO2 LIBERTY 24 (L) 25 - 40 mmHg [facility] HCO3 LIBERTY 27 24 - 28 mEq/L [facility] AC VBE(BEAKER) 2.1 mEq/L [facility] Specimen Blood - ARM, LEFT Performing Organization Address [facility] Phone Number [facility] CLIA: [id number] [place] [address] [facility] LAB ONLY COVID INTERPRETATION (09/14/2020 9:00 PM [employer]ITCH [employer]ER) COVID DMT Interpretation/Recommendations: [facility] Interpretation SERVICES Molecular NAAT Tests for Active Infection with the RONNIE S-CoV-2 Virus: This result indicates that t he patient has been infected with the SARS-CoV-2 virus that causes COVID-19 illness. The patient should be considered infectious and able to transmit the virus within the fir st 10 days after symptom ons et in xrxv-ap-ljnxozno illness and within the first 20 days after symptom onset in critical illness and/or severe immunocompromise. Asymptomatic patients are considered infec tious for the first 10 days subsequent to the initial positive test result. From the onset of symptoms, if any, this result is likely to remain positive for 2 to 4 weeks. Tests for IgM and/or IgG Antibodies to SARS-CoV-2 Viru s: Testing for IgM and IgG anti bodies 1-3 weeks after illness onset will indicate whether the patient has produced antibodies to the virus. At this time, it is not known if the production of antibodies - s pecifically IgG antibodies - indicates whether the patient is immune to future infections with the SARS-CoV-2 virus. Interpretation Result Comments: These interpretation comment s are based upon all COVID-19 testing the patient has had at [facility], including molecular NAAT testing (more commonly known as PCR testing and Rapid ID Now testing) and antibody testing. It does not take i nto account any testing that a patient has had outside of the [facility] medical record. COVID Results SARS-CoV-2 Rapid ID NOW (no units) [facility] Date Value SERVICES 09/14/2020 Positive (A) Specimen Swab - NASOPHARYNGEAL SWAB Performing Organization Address City/State/Zipcode Phone Number [facility] CLIA: [id number] [place] [address] [place] [address] COVID-19 (ID NOW RAPID TESTING) (09/14/2020 9:00 PM L[employer]ITCH [employer] JOINER) [facility] SARS-CoV-2 Rapid ID Positive (A) Not Detected [facility] Specimen Swab - NASOPHARYNGEAL SWAB Narrative Performed At [facility] NOW COVID-19 Assay is an isothermal nucleic [facility] acid amplification test intended for the qualitative detection of nucleic acid from SARS-CoV-2 viral RNA in nasopharyngeal (CHARGER TESTER) specimens. It is used under Emergency Use Authorization (EUA) by FDA. The limit of detection (LOD) of the assay is 125 Genome Equivalents/mL. A positive result is indicative of the presence of SARS-CoV-2 RNA. Clinical correlation with patient history and other diagnostic information is necessary to determine patient infection status. A negative (Not Detected) result does not preclude SARS-CoV-2 infection. In patients with clinical symptoms and other tests that are consistent with SARS-CoV-2 infection, negative results should be treated as presumptive negative and a new specimen should be tested with alternative PCR molecular test. Invalid: Please collect a new specimen for repeat patient testing if clinically indicated. Performing Organization Address City/State/Zipcode Phone Number [facility] CLIA: [id number] [place] [address] COMP. METABOLIC PANEL ([id number]) (09/14/2020 8:58 PM [employer] JOINER) Pathologist Sig nature NA 124 (L) 135 - 145 [facility] mmol/L [facility] K 4.0 3.5 - 5.0 [facility] mmol/L [facility] CL 89 (L) 98 - 108 mmol/L [facility] CO2 TOTAL 28 23 - 31 mmol/L [facility] AGAP 7 2 - 16 [facility] BUN 29 (H) 7 - 23 mg/dL [facility] GLUCOSE 80 70 - 110 mg/dL [facility] CREATININE 1.07 0.60 - 1.25 [facility] mg/dL [facility] TOTAL BILI 1.0 0.1 - 1.1 mg/dL [facility] CALCIUM 8.2 (L) 8.6 - 10.6 [facility] mg/dL [facility] T PROTEIN 6.1 (L) 6.3 - 8.2 g/dL [facility] ALBUMIN 3.3 (L) 3.5 - 5.0 g/dL [facility] ALK PHOS 60 34 - 122 U/L [facility] ALTv 21 5 - 50 U/L [facility] AST(SGOT) 54 (H) 13 - 40 U/L [facility] eGFR Calculation 65.2 mL/min/1.73m2 [facility] (Non-[facility] LABORATORY [place]) eGFR Calculation 79.0 mL/min/1.73m2 [facility] () [facility] Specimen Blood - VENOUS Narrative Performed At Association of Glomerular Filtration Rate (GFR) [facility] LAB[facility] and Staging of Kidney Disease* + + +- + | GFR (mL/min/1.73 m2) | With Kidney Damage | Without Kidney Damage + + +- + | >90 | Stage one | Normal + + +- + | 60-89 | Stage two | Decreased GFR + + +- + | 30-59 | Stage three | Stage three + + +- + | 15-29 | Stage four | Stage four + + +- + | <15 (or dialysis) | Stage five | Stage five + + +- + *Each stage assumes the associated GFR level has been in effect for at least three months. Stages 1 to 5, with or without kidney disease, indicate chronic kidney disease. Notes: Determination of stages one and two (with eGFR >59mL/min/1.73 m2) requires estimation of kidney damage for at least three months as defined by structural or functional abnormalities of the kidney, manifested by either: Pathological abnormalities or Markers of kidney damage (including abnormalities in the composition of the blood or urine or abnormalities in imaging tests). Performing Organization Address City/[facility] Phone Number [facility] CLIA: [id number] [place] [address] GLYCOSYLATED HEMOGLOBIN (A1C) (09/14/2020 7:56 PM [employer]ER) Pathologist Sig nature HGB A1C 5.4 4.0 - 6.0 % [facility] Specimen Blood - VENOUS Narrative Performed At %A1C (NGSP) Interpretation (ADA) [facility] 4.8-5.6 Normal or (Non-Diabetic Ra nge) 5.7-6.4 Increased Risk (Pre-Diabet ic) >6.5 Diabetes Indicated Performing Organization Address [facility] Phone Number [facility] CLIA: [id number] [place] [address] D-DIMER (09/14/2020 7:56 PM L[employer]ITCH [employer]ER) Pathologist Sig nature D-DIMER 0.87 (H) <0.41 g/mL (FEU) [facility] Specimen Blood - VENOUS Narrative Performed At This test may be used in conjunction with a [facility] clinical pretest probability (PTP) assessment model to exclude venous thromboembolism (VTE) in patients suspected of deep venous thrombosis (DVT) and pulmonary embolism (PE) A D-Dimer value less than 0.50 g/ml (FEU) has a negative predicative value of 96 to 100% (95% CI)and 97 to 100% (95% CI) as an aid in the diagnosis of deep vein thrombosis (DVT) and pulmonary embolism when there is low or moderate pretest probability of PE or DVT. D-Dimer values are expressed in initial fibrinogen equivalent units (FEU)" The assay results should be used with other information, including the clinical context, in forming a diagnosis. Performing Organization Address [facility] Phone Number [facility] CLIA: [id number] [place] [address] FERRITIN SERUM (09/14/2020 7:56 PM L[employer]ITCH [employer]ER) Pathologist Sig nature FERRITIN 362.0 18.0 - 464.0 ng/mL [facility] Specimen Blood - VENOUS Narrative Performed At Biotin has been reported to cause a negative [facility] bias, interpret results relative to patient's use of biotin. Performing Organization Address [facility] Phone Number [facility] CLIA: [id number] [place] [address] LACTATE DEHYDROGENASE (09/14/2020 7:56 PM L[employer]ITCH [employer] JOINER) Pathologist Sig [facility] LDH 662 (H) 300 - 600 U/L [facility] Specimen Blood - VENOUS Performing Organization Address [facility] Phone Number [facility] CLIA: [id number] [place] [address] N-TERMINAL PRO-BNP (09/14/2020 7:56 PM L[employer]ITCH [employer] JOINER) Pathologist Sig [facility] NT-proBNP 735 (H) <=450 pg/mL [facility] Specimen Blood - VENOUS Narrative Performed At Biotin has been reported to cause a negative [facility] bias, interpret results relative to patient's use of biotin. Performing Organization Address [facility] Phone Number [facility] CLIA: [id number] [place] [address] TROPONIN I (09/14/2020 7:56 PM L[employer]ER) Pathologist Sig [employer] TROPONIN I 0.074 (H) <=0.034 ng/mL [facility] Specimen Blood - VENOUS Narrative Performed At Equal or Less than 0.034 ng/ml---Normal [facility] Note: Cardiac troponin begins to rise 3-4 hours after the onset of ischemia. Repeat in 4-6 hours if the sample was drawn within 3-4 hours of the onset of the symptom and found normal. Between 0.035 and 0.120 ng/mL--- Borderline. Questionable myocardial injury or necros is Note: Serial measurement may be necessary to confirm or exclude the diagnosis of myocardial injury or necrosis; Clinical correlation (symptoms, EKGs, imaging studies, and others) required; Repeat in 4-6 hours if clinically indicated. Equal or Higher than 0.121 ng/mL---Abnormal. Myocardial Injury or Necrosis Likely Biotin has been reported to cause a negative bias, interpret results relative to patient's use of biotin. Performing Organization Address City/State/Zipcode Phone Number [facility] CLIA: [id number] [place] [address] CBC WITH DIFF (09/14/2020 7:56 PM L[employer]ITCH [employer] JOINER) Pathologist Sig nature WBC 7.40 4.20 - 10.70 [facility] 10*3/L [facility] RBC 5.33 4.26 - 5.52 [facility] 10*6/L [facility] HGB 16.4 12.2 - 16.4 [facility] g/dL [facility] HCT 47.1 38.4 - 49.3 % [facility] MCV 88.4 81.7 - 95.6 fL [facility] MCH 30.8 26.1 - 32.7 pg [facility] MCHC 34.8 31.2 - 35.0 [facility] g/dL [facility] RDW-SD 40.9 38.5 - 51.6 fL [facility] RDW-CV 12.6 12.1 - 15.4 % [facility] PLT 216 150 - 328 [facility] 10*3/L [facility] MPV 10.4 9.8 - 13.0 fL [facility] NRBC/100 WBC 0.0 0.0 - 10.0 /100 [facility] WBCs [facility] NRBC x10^3 <0.01 10*3/L [facility] GRAN MAT (NEUT) % 66.5 % [facility] IMM GRAN % 0.70 % [facility] LYMPH % 17.0 % [facility] MONO % 15.4 % [facility] EOS % 0.0 % [facility] BASO % 0.4 % [facility] GRAN MAT x10^3(ANC) 4.92 1.99 - 6.95 [facility] 10*3/uL [facility] IMM GRAN x10^3 0.05 0.00 - 0.06 [facility] 10*3/uL [facility] LYMPH x10^3 1.26 1.09 - 3.23 [facility] 10*3/uL [facility] MONO x10^3 1.14 (H) 0.36 - 1.[address] [facility] EOS x10^3 <0.03 (L) 0.06 - 0.[address]uL [facility] BASO x10^3 0.03 0.01 - 0.[address] LABORATORY Specimen Blood - VENOUS Performing Organization Address City/State/Zipcode Phone Number [facility] CLIA: [id number] [place] [address] XR CHEST 1 VW (09/14/2020 5:43 PM L[employer]ITCH [employer] JOINER) Specimen Impressions Performed At PACS/VR/DOSE Bilateral patchy hazy airspace opacities, which can be seen in the setting of atypical infectious process, such as COVID-19. Disclaimer: Generally, the findings on c hest imaging in COVID-19 are not specific, and overlap with other infecti ons, including influenza, H1N1, SARS and MERS. According to the Centers for Disease Control (CDC) and recent statement of the [place] [employer], viral testing remai ns the only specific method of diagnosis. Confirmation with the viral test is required, even if radiologic findings are suggestive of CO VID-[address]. Preliminary Report Dictated by Resident: Shaan Cee MD., have reviewed this study and agree with the above report. Narrative Performed At This result has an attachment that is no t available. PROCEDURE: XR CHEST 1 VW PACS/VR/DOSE CLINICAL INDICATION: sob TECHNIQUE: Frontal chest radiograph was obtained. COMPARISON: None FINDINGS: Bilateral patchy hazy opacities, right greater than le ft with scattered septal thickening. No pleural effusion or pneumothorax is seen. The heart is normal in size. No acute bony abnormality is noted. Procedure Note [facility], Radiant Results Inft User - 2019 7:51 PM LOCKSTITCH COAT JOINER PROCEDURE: XR CHEST 1 VW CLINICAL INDICATION: sob TECHNIQUE: Frontal chest radiograph was obtained. COMPARISON: None FINDINGS: Bilateral patchy hazy opacities, right g reater than left with scattered septal thickening. No pleural effusion o r pneumothorax is seen. The heart is normal in size. No acute bony abnormality is noted. IMPRESSION Bilateral patchy hazy airspace opacities , which can be seen in the setting of atypical infectious process, such as COVID-19. Disclaimer: Generally, the findings on c hest imaging in COVID-19 are not specific, and overlap with other infecti ons, including influenza, H1N1, SARS and MERS. According to the Centers for Disease Con trol (CDC) and recent statement of the [place] [employer], viral testing remains the only specific method of diagnosis. Confirmation with t he viral test is required, even if radiologic findings are suggestive of CO VID-[address]. Preliminary Report Dictated by Resident: Glenroy Singletary I, Shaan Chandler MD., have reviewed is study and agree with the above report. Performing Organization Address City/State/Zipcode Phone Number PACS/VR/DOSE documented in this encounter Visit Diagnoses Diagnosis COVID-19 virus infection - Primary SOB (shortness of breath) Shortness of breath Elevated blood pressure reading in offic e with diagnosis of hypertension Pneumonia due to COVID-19 virus NSTEMI (non-ST elevated myocardial infar ction) Acute myocardial infarction, subendocard ial infarction, episode of care unspecified Elevated brain natriuretic peptide (BNP) level Other nonspecific findings on examinatio n of blood Acute diastolic congestive heart failure Acute diastolic heart failure Essential hypertension Unspecified essential hypertension Paroxysmal atrial fibrillation with RVR documented in this encounter Administered Medications Medication Order MAR Action Action Date Dose Rate Site albuterol-ipratropium (COMBIVENT Given 09/17/2020 11:27 AM L[employer]ITCH [employer]ER 1 Puff RESPIMAT) 20-100 mcg/actuation inhaler 1 Puff 1 Puff, Inhalation, QID, First dose on Mon09/15/20 at 0330, Until Discontinued, Routine, Is this order for a patient with suspected or confirmed COVID-19 infection? Yes Given 09/17/2020 7:25 AM L[employer]ITCH [employer] JOINER 1 Puff Given 09/16/2020 8:07 PM [employer]STITCH [employer] JOINER 1 Puff aspirin chewable tablet 81 mg Given 09/17/2020 8:03 AM L[employer]ITCH [employer] JOINER 81 mg 81 mg, Oral, QAM WITH BREAKFAST, First dose on Mon09/15/20 at 0330, Until Discontinued, Routine Given 09/16/2020 8:16 AM L[employer]STITCH [employer] JOINER 81 mg Given 09/15/2020 9:11 AM [employer]ITCH [employer] JOINER 81 mg atorvastatin (LIPITOR) tablet 40 mg Given 09/16/2020 8:36 PM [employer]ITCH [employer] JOINER 40 mg 40 mg, Oral, QHS, First dose on Mon09/15/20 at 0330, Until Discontinued, Routine Given 09/15/2020 8:39 PM [employer]ITCH [employer] JOINER 40 mg Given 09/15/2020 4:23 AM [employer]ITCH [employer] JOINER 40 mg azithromycin (ZITHROMAX) 500 mg in NaCl 0.9% Given 4:29 AM [employer]ITCH [employer] JOINER 500 mg (NS) 250 mL VIAL-MATE IV piggyback 500 mg, IV Piggyback, Q24H ABX, 6 doses, First dose on Mon09/15/20 at 0430, Last dose on Mon09/20/20 at 0430, 250 mL, Reason for Anti-Infective: Empiric Therapy for Suspected Infection, Empiric Therapy Site: Respiratory, Duration of therapy: 7 days Given 09/16/2020 4:47 AM LOCKSTITCH [employer] 500 mg Given 09/15/2020 4:24 AM [employer] 500 mg dexamethasone (DECADRON) 6 mg in NaCl 0.9% New Bag 09/16/2020 8:36 PM [employer] 6 mg (NS) piggyback 6 mg, IV Piggyback, QHS, 10 doses, First dose on Mon09/15/20 at 0330, Last dose on Mon09/23/20 at 2100, 50 mL New Bag 09/15/2020 8:40 PM [employer] 6 mg New Bag 09/15/2020 4:25 AM [employer] 6 mg docusate (COLACE) capsule 100 mg Given 09/17/2020 8:03 AM [employer] 100 mg 100 mg, Oral, BID, First dose on Mon09/15/20 at 0800, Until Discontinued, Routine Given 09/16/2020 8:36 PM [employer] 100 mg enoxaparin (LOVENOX) injection 40 mg Given 09/17/2020 4:29 AM [employer] 40 mg Abdo men-SC 40 mg, Subcutaneous, Q12H ABX, First dose on Mon09/15/20 at 0445, Until Discontinued, Routine Given 09/16/2020 5:37 PM [employer] 40 mg Abdo men-SC Given 09/16/2020 4:47 AM [employer] 40 mg Abdo men-SC lactobacillus acidophilus (ACIDOPHILLUS) Given 09/17/2020 8 :03 AM [employer] 1 tablet 25 million cell -100 mg captab 1 tablet 1 tablet, Oral, BID, First dose on Mon09/15/20 at 0330, Until Discontinued, Routine Given 09/16/2020 8:36 PM [employer] 1 tablet Given 09/16/2020 8:16 AM [employer] 1 tablet metoprolol succinate XL (TOPROL XL) tablet 25 Given 8:04 AM [employer] 25 mg mg 25 mg, Oral, BID, First dose on Mon09/15/20 at 0330, Until Discontinued, Routine Given 09/16/2020 8:36 PM [employer] 25 mg Given 09/16/2020 8:16 AM [employer] 25 mg NaCl 0.9% (NS) IV infusion 1,000 New Bag 09/16/2020 9:[address] 1,000 mL 75 mL/hr mL at 75 mL/hr, IV Infusion, CONTINUOUS, Starting Mon09/16/20 at 1115, Until Discontinued, Routine New Bag 09/16/2020 12:36 PM [employer] 1,000 mL 75 mL/hr ondansetron (ZOFRAN (PF)) injection 4 mg 4 mg, Slow IV Push, Q6HPRN, Starting Mon09/15/20 at 0 324, Until Discontinued, Routine, Nausea and Vomiting (N/V) sodium chloride tablet 1 g Given 09/17/2020 8:03 AM [employer] 1 g 1 g, Oral, BID, First dose on Mon09/16/20 at 1300, Until Discontinued, Routine Given 09/16/2020 8:36 PM [employer] 1 g Given 09/16/2020 2:18 PM [employer] 1 g traMADoL (ULTRAM) tablet 50 mg 50 mg, Oral, Q6HPRN, Starting Shazia at 0912, Until Discontinued, Routine, Pain (scale 4-6), Pain (scale 7-10) Medication Order MAR Action Action Date Dose Rate Site aspirin tablet 325 mg Given 09/14/2020 10:19 PM [employer] 325 mg 325 mg, Oral, ONCE, 1 dose, 09/14/20 at 2300, STAT iohexol (OMNIPAQUE 350 BULK-100 mL) Given 09/15/2020 11:08 AM CS T 100 mL injection 100 mL 100 mL, Intravenous, ONCE, 1 dose, 09/15/20 at 1130, Routine NaCl 0.9% (NS) IV infusion 1,000 New Bag 09/15/2020 4:[address] 1,000 mL 42 mL/hr mL at 42 mL/hr, IV Infusion, CONTINUOUS, Starting 09/15/20 at 0545, Until 09/16/20 at 1107, Routine sulfur hexafluoride microsphr (LUMASON) Given 09/15/2020 9:56 A M [employer] 5 mL injection 5 mL 5 mL, Intravenous, ONCE, 1 dose, 09/15/20 at 1845, Routine, membership correspondent approving Restricted medication: MAHAD SALDIVAR documented in this encounter Additional Health Concerns Infection Onset Date Last Indicated Resolved Time COVID-19 Rule Out 09/14/2020 09/14/2020 09/14/2020 9: 24 PM [employer] COVID-19 Confirmed 09/14/2020 09/14/2020 documented as of this encounter Insurance Payer Benefit Plan / Subscriber ID Effective Phone Address T ype Group Dates MEDICARE MEDICARE PART [id number] 1997-Pre [phone] [address] [employer] sent [phone] LUCIEN RAHMAN [id number] [facility] [id number] 2015-Pre [address] [facility] [place] [id number] Supplement MEDICARE [place] SUPPLEMENT LUCIEN BAUTISTA [id number] (Work) documented as of this encounter
[2020-09-19] MEDS ORDERED: NA CHLORIDE 0.9% 1,000 ML ONE (11:50)
[2020-09-19] MEDS ORDERED: CEFTRIAXONE/SWI 1gm 1 GM/10 ML SYR ONE (11:50)
[2020-09-19] MEDS ORDERED: dexAMETHasone 10 MG/ML VIAL ONE (11:50)
[2020-09-19] MEDS ORDERED: ACETAMINOPHEN 325 MG TABLET ONE (11:50)
[2020-09-19] MEDS ORDERED: FAMOTIDINE 20 MG/2 ML VIAL IV ONE (11:50)
[2020-09-19] MEDS ORDERED: AZITHROMYCIN IV 500 MG in NA CHLORIDE 0.9% 250 ML IVPB ONE (12:00)
[2020-09-19 12:18] LABS: Protime INR 1.35
[2020-09-19 12:22] LABS: Absolute Lymphocytes (CBC) 0.7 K/uL (0.7-4.9); Basophils % 0.4 % (0-1.3); Hematocrit 47.5 % (39.6-49.0); Lymphocytes % 3.9 % (15.3-44.8); MPV 9.3 fL (7.6-11.3); RBC Red Blood Cell Count 5.22 M/uL (4.33-5.43)
[2020-09-19 12:38] LABS: Albumin 2.3 g/dL (3.4-5.0); Bilirubin Direct 0.5 mg/dL (0-0.2); Bilirubin Total 1.3 mg/dL (0.2-1.0); Protein, Total 6.8 g/dL (6.4-8.2); Troponin (Emerg Dept Use Only) 0.05 ng/mL (0.0-0.045)
[2020-09-19 12:44] LABS: Magnesium 2.4 mg/dL (1.8-2.4); Potassium 4.3 mmol/L (3.5-5.1)
--- NOTE | 2020-09-19 12:44 | ER ---
Nurse's Notes [facility] Name: Chace Schulz Age: 89 yrs Sex: Male : 1930 Arrival Date: 09/19/2020 Time: 11:06 Bed 16 Private MD: Diagnosis: SARS-associated coronavirus as the cause of diseases classified elsewhere-covid 19;Pneumonia, unspecified organism-bilateral, worsening;Hypoxemia;Elevated white blood cell count Presentation: 09/19 11:08 Chief complaint: EMS states: INCREASING SOB AND COUGH, + COVID. Coronavirus screen: bp Client reports previous positive COVID test result. Ebola Screen: No symptoms or risks identified at this time. Initial Sepsis Screen: Does the patient meet any 2 criteria? RR > 20 per min. No. Patient's initial sepsis screen is negative. Does the patient have a suspected source of infection? No. Patient's initial sepsis screen is negative. Risk Assessment: Do you want to hurt yourself or someone else? Patient reports no desire to harm self or others. Onset of symptoms is unknown. Care prior to arrival: IV initiated. 20 GA, in the right antecubital area. 11:08 Method Of Arrival: EMS: [facility] bp 11:08 Acuity: CARMEN 3 bp Triage Assessment: 11:10 General: Appears distressed, uncomfortable, ill, Behavior is cooperative, appropriate bp for age, anxious. Pain: Denies pain. EENT: No deficits noted. Neuro: No deficits noted. Cardiovascular: No deficits noted. Respiratory: Reports shortness of breath cough that is. GI: No signs and/or symptoms were reported involving the gastrointestinal system. : No signs and/or symptoms were reported regarding the genitourinary system. Derm: No deficits noted. Musculoskeletal: No deficits noted. Historical: - Allergies: 11:10 No Known Allergies; bp - Home Meds: 11:10 Metoprolol Tartrate Oral [Active]; aspirin 81 mg Oral chew 1 tab once daily [Active]; bp - PMHx: 11:10 Hypertension; bp - Immunization history:: Adult Immunizations up to date. - Social history:: Smoking status: Patient denies any tobacco usage or history of. - Family history:: not pertinent. Screenin:11 Abuse screen: Denies threats or abuse. Denies injuries from another. Nutritional bp screening: No deficits noted. Tuberculosis screening: No symptoms or risk factors identified. Fall Risk None identified. Assessment: 11:11 General: SEE TRIAGE NOTE. bp 12:00 Reassessment: Patient appears in no apparent distress at this time. Patient and/or ca1 family updated on plan of care and expected duration. Pain level reassessed. Patient is alert, oriented x 3, equal unlabored respirations, skin warm/dry/pink. 13:10 Reassessment: Patient appears in no apparent distress at this time. Patient and/or ca1 family updated on plan of care and expected duration. Pain level reassessed. Patient is alert, oriented x 3, equal unlabored respirations, skin warm/dry/pink. Dr. Bojorquez Hospitalist at bedside. 14:00 Reassessment: Patient appears in no apparent distress at this time. Patient and/or ca1 family updated on plan of care and expected duration. Pain level reassessed. Patient is alert, oriented x 3, equal unlabored respirations, skin warm/dry/pink. 15:00 Reassessment: Patient appears in no apparent distress at this time. Patient and/or ca1 family updated on plan of care and expected duration. Pain level reassessed. Patient is alert, oriented x 3, equal unlabored respirations, skin warm/dry/pink. 15:45 Reassessment: Patient appears in no apparent distress at this time. Patient and/or ca1 family updated on plan of care and expected duration. Pain level reassessed. Patient is alert, oriented x 3, equal unlabored respirations, skin warm/dry/pink. 16:45 Reassessment: Patient appears in no apparent distress at this time. Patient and/or ca1 family updated on plan of care and expected duration. Pain level reassessed. Patient is alert, oriented x 3, equal unlabored respirations, skin warm/dry/pink. 17:49 Reassessment: Patient appears in no apparent distress at this time. Patient and/or ca1 family updated on plan of care and expected duration. Pain level reassessed. Patient is alert, oriented x 3, equal unlabored respirations, skin warm/dry/pink. 18:50 Reassessment: Patient appears in no apparent distress at this time. Patient and/or ca1 family updated on plan of care and expected duration. Pain level reassessed. Patient is alert, oriented x 3, equal unlabored respirations, skin warm/dry/pink. 19:45 Reassessment: Patient appears in no apparent distress at this time. Patient and/or ca1 family updated on plan of care and expected duration. Pain level reassessed. Patient is alert, oriented x 3, equal unlabored respirations, skin warm/dry/pink. 20:26 Reassessment: Patient appears in no apparent distress at this time. Patient and/or ca1 family updated on plan of care and expected duration. Pain level reassessed. Patient is alert, oriented x 3, equal unlabored respirations, skin warm/dry/pink. 21:35 Reassessment: Patient appears in no apparent distress at this time. Patient and/or ca1 family updated on plan of care and expected duration. Pain level reassessed. Patient is alert, oriented x 3, equal unlabored respirations, skin warm/dry/pink. 22:15 Reassessment: Patient appears in no apparent distress at this time. received awake rr5 alert on NRM at 15 liter O2 saturation 92%.tachypneic, use accessory muscle noted/ admitted as ER hold. Vital Signs: 11:08 BP 141 / 73; Pulse 94; Resp 29; Temp 100.3; Pulse Ox 98% on 15% Non-rebreather mask; bp 12:00 Pulse Ox 79% on 4 lpm NC; ca1 12:05 Pulse Ox 97% on Non-rebreather mask; ca1 12:20 BP 168 / 89; Pulse 93; Resp 24; Pulse Ox 97% on Non-rebreather mask; ca1 13:30 BP 178 / 97; Pulse 91; Resp 25 S; Temp 98.9(TE); Pulse Ox 97% on Non-rebreather mask; ca1 14:30 BP 171 / 90; Pulse 88; Resp 22 S; Pulse Ox 95% on Non-rebreather mask; ca1 15:30 BP 167 / 84; Pulse 83; Resp 25 S; Pulse Ox 99% on Non-rebreather mask; ca1 16:30 BP 137 / 93; Pulse 83; Resp 22; Pulse Ox 96% on Non-rebreather mask; ca1 17:30 BP 164 / 81; Pulse 86; Resp 22 S; Pulse Ox 95% on Non-rebreather mask; ca1 17:58 Temp 97.7(TE); ca1 18:30 BP 166 / 73; Pulse 82; Resp 24 S; Pulse Ox 99% on Non-rebreather mask; ca1 19:30 BP 162 / 88; Pulse 85; Resp 22 S; Pulse Ox 97% on Non-rebreather mask; ca1 20:11 Weight 79.38 kg (R); ca1 20:28 BP 178 / 80; Pulse 87; Resp 21 S; Pulse Ox 96% on Non-rebreather mask; ca1 21:35 BP 169 / 70; Pulse 88; Resp 22 S; Pulse Ox 98% on Non-rebreather mask; ca1 22:10 BP 172 / 85; Pulse 77; Resp 26; Pulse Ox 92% on Non-rebreather mask; jb4 09/21 20:29 BP 162 / 81; Pulse 84; Resp 26; Temp 98.5(TE); Pulse Ox 86% on NC; jb4 ED Course: 09/19 11:06 Patient arrived in ED. em1 11:07 Marlen Shook RN is Primary Nurse. ca1 11:09 Triage completed. bp 11:10 Shekhar Mata MD is Attending Physician. lars 11:10 Arm band placed on. bp 11:11 Patient has correct armband on for positive identification. Bed in low position. Call bp light in reach. Side rails up X2. 11:15 library monitor on. Pulse ox on. NIBP on. Head of bed elevated. ca1 11:32 XRAY Chest (1 view) In Process Unspecified. EDMS 12:10 Inserted saline lock: 22 gauge in left forearm, using aseptic technique. Blood ca1 collected. 12:10 Initial lab(s) drawn, by me, sent to lab. First set of blood cultures drawn by tx. ca1 12:42 Miguel Bojorquez MD is Hospitalizing Provider. lars 12:51 CT Chest For PE Angio In Process Unspecified. EDMS 17:50 Patient admitted, IV remains in place. ca1 17:50 No provider procedures requiring assistance completed. ca1 22:09 Report given to LIGIA Rivera. ca1 09/21 07:49 Primary Nurse role handed off by Marlen Shook RN jl7 07:49 Cesar Borrero RN is Primary Nurse. jl7 07:49 Report received from LIGIA Davis. jl7 19:15 Primary Nurse role handed off by Cesar Borrero RN jl7 Administered Medications: 09/19 11:40 Drug: Tylenol 650 mg Route: PO; ca1 13:00 Follow up: Response: No adverse reaction; Temperature is decreased ca1 12:11 Drug: NS 0.9% 500 ml Route: IV; Rate: bolus; Site: left forearm; ca1 13:00 Follow up: Response: No adverse reaction; IV Status: Completed infusion; IV Intake: ca1 500ml 12:12 Drug: Pepcid 20 mg Route: IVP; Site: right forearm; ca1 13:00 Follow up: Response: No adverse reaction ca1 12:14 Drug: Decadron - Dexamethasone 10 mg Route: IVP; Site: left forearm; ca1 13:00 Follow up: Response: No adverse reaction ca1 12:50 Drug: NS 0.9% 1000 ml Route: IV; Rate: 125 ml/hr; Site: left forearm; ca1 15:00 Follow up: Response: No adverse reaction; IV Status: Infusion continued upon admission ca1 13:02 Drug: Rocephin 1 grams Route: IV; Rate: per protocol; Site: left forearm; ca1 13:30 Follow up: Response: No adverse reaction; IV Status: Completed infusion ca1 13:04 Drug: Zithromax 500 mg Route: IVPB; Infused Over: 1 hrs; Site: left forearm; ca1 14:10 Follow up: Response: No adverse reaction; IV Status: Completed infusion ca1 Intake: 13:00 IV: 500ml; Total: 500ml. ca1 Outcome: 12:44 Decision to Hospitalize by Provider. lars 22:50 Admitted to ER Hold. Please see [facility] for further documentation. rr5 22:50 Condition: stable 22:50 Instructed on the need for admit. 09/21 21:09 Patient left the ED. mg2 Signatures: Dispatcher [employer] EDMS Shekhar Mata MD MD cha Martinez, Eric em1 Shravan Alvarez RN RN jb4 Cesar Borrero RN RN jl7 Thaddeus Bradley RN RN bp Jay Diop RN RN mg2 Miguel Mcfarland, LIGIA RN rr5 Marlen Shook RN RN ca1 Corrections: (The following items were deleted from the chart) 09/19 17:59 13:30 BP 178 / 97; Pulse 91bpm; Resp 25bpm; Spontaneous; Pulse Ox 97% Non-rebreather ca1 mask; ca1 09/21 20:25 09/19 22:10 BP 172 / 85; Pulse 77bpm; Resp 26bpm; Pulse Ox 92% 02 15% Non-rebreather jb4 mask; rr5
--- NOTE | 2020-09-19 12:44 | EDPHYS ---
Physician Documentation [facility] Name: Chace Schulz Age: 89 yrs Sex: Male : 1930 Arrival Date: 09/19/2020 Time: 11:06 Bed 16 Private MD: ED Physician Shekhar Mata HPI: 09/19 11:23 This 89 yrs old Male presents to ER via EMS with complaints of fever, dyspnea lars and weakness. 11:23 The patient or guardian reports cough, difficulty breathing, flu symptoms. Modifying lars factors: The symptoms are alleviated by remaining still, the symptoms are aggravated by activity, lying flat. covid pna, hypoxia, on home o2. Severity of symptoms: At their worst the symptoms were moderate, in the emergency department the symptoms have improved, mildly. Associated signs and symptoms: Pertinent positives: fever, nausea, rhinorrhea, sore throat. The patient reports fever, that was measured at 100.3 degrees Fahrenheit. Historical: - Allergies: 11:10 No Known Allergies; bp - Home Meds: 11:10 Metoprolol Tartrate Oral [Active]; aspirin 81 mg Oral chew 1 tab once daily [Active]; bp - PMHx: 11:10 Hypertension; bp - Immunization history:: Adult Immunizations up to date. - Social history:: Smoking status: Patient denies any tobacco usage or history of. - Family history:: not pertinent. ROS: 11:23 Eyes: Negative for injury, pain, redness, and discharge, ENT: Negative for injury, lars pain, and discharge, Neck: Negative for injury, pain, and swelling, Cardiovascular: Negative for chest pain, palpitations, and edema, Abdomen/GI: Negative for abdominal pain, nausea, vomiting, diarrhea, and constipation, Back: Negative for injury and pain, : Negative for injury, bleeding, discharge, and swelling, MS/Extremity: Negative for injury and deformity, Skin: Negative for injury, rash, and discoloration, Neuro: Negative for headache, weakness, numbness, tingling, and seizure, Psych: Negative for depression, anxiety, suicide ideation, homicidal ideation, and hallucinations, Allergy/Immunology: Negative for hives, rash, and allergies, Endocrine: Negative for neck swelling, polydipsia, polyuria, polyphagia, and marked weight changes, Hematologic/Lymphatic: Negative for swollen nodes, abnormal bleeding, and unusual bruising. 11:23 Respiratory: Positive for cough, shortness of breath, at rest. Exam: 11:23 Constitutional: This is a well developed, well nourished patient who is awake, alert, lars and in no acute distress. Head/Face: Normocephalic, atraumatic. Eyes: Pupils equal round and reactive to light, extra-ocular motions intact. Lids and lashes normal. Conjunctiva and sclera are non-icteric and not injected. Cornea within normal limits. Periorbital areas with no swelling, redness, or edema. ENT: Nares patent. No nasal discharge, no septal abnormalities noted. Tympanic membranes are normal and external auditory canals are clear. Oropharynx with no redness, swelling, or masses, exudates, or evidence of obstruction, uvula midline. Mucous membranes moist. Neck: Trachea midline, no thyromegaly or masses palpated, and no cervical lymphadenopathy. Supple, full range of motion without nuchal rigidity, or vertebral point tenderness. No Meningismus. Chest/axilla: Normal chest wall appearance and motion. Nontender with no deformity. No lesions are appreciated. Cardiovascular: Regular rate and rhythm with a normal S1 and S2. No gallops, murmurs, or rubs. Normal PMI, no JVD. No pulse deficits. Abdomen/GI: Soft, non-tender, with normal bowel sounds. No distension or tympany. No guarding or rebound. No evidence of tenderness throughout. Back: No spinal tenderness. No costovertebral tenderness. Full range of motion. Male : Normal genitalia with no discharge or lesions. Skin: Warm, dry with normal turgor. Normal color with no rashes, no lesions, and no evidence of cellulitis. 11:23 Respiratory: mild respiratory distress is noted, Respirations: no acute changes, labored breathing, that is mild, Breath sounds: bronchial sounds, decreased breath sounds, rhonchi, that are mild. 14:21 ECG was reviewed by the Attending Physician. [facility] Vital Signs: 11:08 BP 141 / 73; Pulse 94; Resp 29; Temp 100.3; Pulse Ox 98% on 15% Non-rebreather mask; bp 12:00 Pulse Ox 79% on 4 lpm NC; ca1 12:05 Pulse Ox 97% on Non-rebreather mask; ca1 12:20 BP 168 / 89; Pulse 93; Resp 24; Pulse Ox 97% on Non-rebreather mask; ca1 13:30 BP 178 / 97; Pulse 91; Resp 25 S; Temp 98.9(TE); Pulse Ox 97% on Non-rebreather mask; ca1 14:30 BP 171 / 90; Pulse 88; Resp 22 S; Pulse Ox 95% on Non-rebreather mask; ca1 15:30 BP 167 / 84; Pulse 83; Resp 25 S; Pulse Ox 99% on Non-rebreather mask; ca1 16:30 BP 137 / 93; Pulse 83; Resp 22; Pulse Ox 96% on Non-rebreather mask; ca1 17:30 BP 164 / 81; Pulse 86; Resp 22 S; Pulse Ox 95% on Non-rebreather mask; ca1 17:58 Temp 97.7(TE); ca1 18:30 BP 166 / 73; Pulse 82; Resp 24 S; Pulse Ox 99% on Non-rebreather mask; ca1 19:30 BP 162 / 88; Pulse 85; Resp 22 S; Pulse Ox 97% on Non-rebreather mask; ca1 20:11 Weight 79.38 kg (R); ca1 20:28 BP 178 / 80; Pulse 87; Resp 21 S; Pulse Ox 96% on Non-rebreather mask; ca1 21:35 BP 169 / 70; Pulse 88; Resp 22 S; Pulse Ox 98% on Non-rebreather mask; ca1 22:10 BP 172 / 85; Pulse 77; Resp 26; Pulse Ox 92% on Non-rebreather mask; jb4 09/21 20:29 BP 162 / 81; Pulse 84; Resp 26; Temp 98.5(TE); Pulse Ox 86% on NC; jb4 MDM: 09/19 11:10 Patient medically screened. lars 11:29 Differential diagnosis: bronchitis, flu, bacterial infection, URI, bronchitis, lars pneumonia gastroenteritis. Antibiotic administration: Rocephin and Zithromax given. Differential Diagnosis altered mental status, sepsis, flu, Bronchitis Influenza Upper Respiratory Infection. Data reviewed: vital signs, nurses notes, lab test result(s), EKG, radiologic studies, CT scan, plain films. Data interpreted: monitor car operator: rate is 94 beats/min, rhythm is regular, Pulse oximetry: on room air is 80 %. Test interpretation: by ED physician or midlevel provider: ECG, plain radiologic studies. Counseling: I had a detailed discussion with the patient and/or guardian regarding: the historical points, exam findings, and any diagnostic results supporting the discharge/admit diagnosis, the presence of at least one elevated blood pressure reading (>120/80) during this emergency department visit, lab results, radiology results, the need for further work-up and treatment in the hospital. 09/19 11:22 Order name: Basic Metabolic Panel; Complete Time: 12:45 [facility] 09/19 11:22 Order name: CBC with Diff; Complete Time: 13:08 [facility] 09/19 11:22 Order name: LFT's; Complete Time: 12:45 [facility] 09/19 11:22 Order name: Magnesium; Complete Time: 12:45 [facility] 09/19 11:22 Order name: NT PRO-BNP; Complete Time: 12:45 [facility] 09/19 11:22 Order name: PT-INR; Complete Time: 12:35 [facility] 09/19 11:22 Order name: Troponin (emerg Dept Use Only); Complete Time: 12:45 [facility] 09/19 11:22 Order name: Blood Culture Adult (2) [facility] 09/19 11:22 Order name: Lactate; Complete Time: 12:45 [facility] 09/19 12:21 Order name: CREATININE WHOLE BLOOD [facility] 09/19 12:46 Order name: C-Reactive Protein [facility] 09/19 12:46 Order name: Ferritin [facility] 09/19 12:46 Order name: Procalcitonin [facility] 09/19 13:01 Order name: CBC Smear Scan; Complete Time: 13:08 [facility] 09/19 16:28 Order name: Troponin I [facility] 09/19 18:00 Order name: Lactate Sepsis 2 HR Follow-up [facility] 09/19 22:55 Order name: COVID-19 rr5 09/19 23:30 Order name: CORONAVIRUS [facility] 09/19 23:33 Order name: Troponin I [facility] 09/20 00:24 Order name: SARS-COV-2 RT PCR [facility] 09/20 04:49 Order name: CBC with Automated Diff [facility] 09/20 04:58 Order name: Comprehensive Metabolic Panel [facility] 09/20 04:58 Order name: Magnesium [facility] 09/20 05:04 Order name: C-Reactive Protein [facility] 09/20 05:04 Order name: Ferritin [facility] 09/20 06:34 Order name: Phosphorus [facility] 09/20 10:44 Order name: Gram Stain--Aerobic Bottle [facility] 09/21 05:50 Order name: Comprehensive Metabolic Panel [facility] 09/21 05:50 Order name: C-Reactive Protein [facility] 09/21 05:50 Order name: Magnesium [facility] 09/19 11:22 Order name: XRAY Chest (1 view) [facility] 09/19 11:22 Order name: EKG; Complete Time: 11:23 [facility] 09/19 11:22 Order name: Cardiac monitoring; Complete Time: 12:20 [facility] 09/19 11:22 Order name: EKG - Nurse/Tech; Complete Time: 12:20 [facility] 09/19 11:22 Order name: IV Saline Lock; Complete Time: 12:20 [facility] 09/19 11:22 Order name: Labs collected and sent; Complete Time: 12:21 [facility] 09/19 11:22 Order name: O2 Per Protocol; Complete Time: 12:21 [facility] 09/19 11:22 Order name: O2 Sat Monitoring; Complete Time: 12:21 [facility] 09/19 11:22 Order name: CT Chest For PE Angio; Complete Time: 13:08 [facility] 09/19 13:19 Order name: CONS Physician Consult [facility] 09/21 05:50 Order name: Ferritin [facility] 09/21 08:51 Order name: RAD [facility] EC:21 Rate is 150 beats/min. Rhythm is irregular. QRS [place] is Normal. GA interval is normal. [facility] QRS interval is normal. QT interval is normal. No Q waves. T waves are Normal. No ST changes noted. Clinical impression: NSR w/ Non-specific ST/T Changes, LVH, and No evidence of ischemia. Interpreted by me. Reviewed by me. Administered Medications: 11:40 Drug: Tylenol 650 mg Route: PO; ca1 13:00 Follow up: Response: No adverse reaction; Temperature is decreased ca1 12:11 Drug: NS 0.9% 500 ml Route: IV; Rate: bolus; Site: left forearm; ca1 13:00 Follow up: Response: No adverse reaction; IV Status: Completed infusion; IV Intake: ca1 500ml 12:12 Drug: Pepcid 20 mg Route: IVP; Site: right forearm; ca1 13:00 Follow up: Response: No adverse reaction ca1 12:14 Drug: Decadron - Dexamethasone 10 mg Route: IVP; Site: left forearm; ca1 13:00 Follow up: Response: No adverse reaction ca1 12:50 Drug: NS 0.9% 1000 ml Route: IV; Rate: 125 ml/hr; Site: left forearm; ca1 15:00 Follow up: Response: No adverse reaction; IV Status: Infusion continued upon admission ca1 13:02 Drug: Rocephin 1 grams Route: IV; Rate: per protocol; Site: left forearm; ca1 13:30 Follow up: Response: No adverse reaction; IV Status: Completed infusion ca1 13:04 Drug: Zithromax 500 mg Route: IVPB; Infused Over: 1 hrs; Site: left forearm; ca1 14:10 Follow up: Response: No adverse reaction; IV Status: Completed infusion ca1 Disposition: 09/19/20 12:44 Hospitalization ordered by Miguel Bojorquez for Inpatient Admission. Preliminary diagnosis are SARS-associated coronavirus as the cause of diseases classified elsewhere - covid 19, Pneumonia, unspecified organism - bilateral, worsening, Hypoxemia, Elevated white blood cell count. - Bed requested for Telemetry/MedSurg (Inpatient). - Status is Inpatient Admission. mg2 - Condition is Fair. - Problem is new. - Symptoms have improved. Critical care time excluding procedures: 12:45 Critical care time: Bedside Care: 25 minutes, Consultation: 5 minutes. Total time: 30 lars minutes Signatures: Dispatcher [employer] EDShekhar King MD MD cha Garcia, Cindy, RN RN Thaddeus Bradley RN RN Jay Diop RN RN mg2 Marlen Shook RN RN ca1 Corrections: (The following items were deleted from the chart) 21:13 12:44 Hospitalization Ordered by Miguel Bojorquez MD for Inpatient Admission. Preliminary cg diagnosis is SARS-associated coronavirus as the cause of diseases classified elsewhere - covid 19; Pneumonia, unspecified organism - bilateral, worsening; Hypoxemia; Elevated white blood cell count. Bed requested for Telemetry/MedSurg (Inpatient). Status is Inpatient Admission. Condition is Fair. Problem is new. Symptoms have improved. [facility] 09/21 19:49 09/19 21:13 09/19/2020 12:44 Hospitalization Ordered by Miguel Bojorquez MD for Inpatient cg Admission. Preliminary diagnosis is SARS-associated coronavirus as the cause of diseases classified elsewhere - covid 19; Pneumonia, unspecified organism - bilateral, worsening; Hypoxemia; Elevated white blood cell count. Bed requested for [facility]. Status is Inpatient Admission. Condition is Fair. Problem is new. Symptoms have improved. 09/21 21:09 19:49 09/19/2020 12:44 Hospitalization Ordered by Miguel Bojorquez MD for Inpatient mg2 Admission. Preliminary diagnosis is SARS-associated coronavirus as the cause of diseases classified elsewhere - covid 19; Pneumonia, unspecified organism - bilateral, worsening; Hypoxemia; Elevated white blood cell count. Bed requested for Telemetry/MedSurg (Inpatient). Status is Inpatient Admission. Condition is Fair. Problem is new. Symptoms have improved.
--- NOTE | 2020-09-19 12:59 | RAD REPORT ---
EXAM DESCRIPTION: CT - Chest For Pe Angio - 09/19/2020 12:50 pm CLINICAL HISTORY: Chest pain. Cough;Dyspnea;SOB COMPARISON: THORAX W CONTRAST dated 06/25/2015; Chest Single View dated 09/19/2020 TECHNIQUE: CT angiogram of the pulmonary arteries was performed with MIP. All CT scans are performed using dose optimization technique as appropriate and may include automated exposure control or mA/KV adjustment according to patient size. FINDINGS: No evidence of pulmonary thromboembolism. No acute aortic finding demonstrated. Large areas of airspace consolidation are present in both lungs, greater on the right likely represen ting pneumonia or less likely pulmonary edema. Small bilateral pleural effusions. Right peritracheal stripe soft tissue measuring 24 mm likely repre senting an enlarged lymph node. No concerning bony finding. IMPRESSION: No evidence of pulmonary thromboembolism. Severe bilateral airspace consolidation, likely pneumonia or pulmonary edema.
[2020-09-19 13:00] LABS: Blood Morphology Comment NOT SEEN (NOT SEEN); Platelet Estimate ADEQ; White Blood Cell Scan OK (OK)
--- NOTE | 2020-09-19 13:22 | P.HP ---
Certification for Inpatient Patient admitted to: Inpatient With expected LOS: >2 Midnights Practitioner: I am a practitioner with admitting privileges, knowledge of patient current condition, hospital course, and medical plan of care. Services: Services provided to patient in accordance with Admission requirements found in Title 42 Section 412.3 of the Code of Federal Regulations Patient History Date of Service: 09/19/20 Reason for admission: Worsening COVID-19 pneumonia History of Present Illness: 82-year-old male, PMH: Hypertension, TIA who presents to the ED due to signi ficantly worsening shortness of breath. Patient states he was recently diagnosed with COVID pneumonia ~ 1 week ago, was hospitalized at [facility] for ~3 days, and recently discharged on 09/17 with home O2 and "2 or 3 medications". Patient states last night he suddenly became much more short of breath, and notices oxygen saturation presented the 70s, despite using his home oxygen concentrator. He continues with these issues and came to the ED. Here, workup revealed a leukocytosis (18), elevated lactate (2.9), elevated CRP (126), elevated BNP (4002). CTA chest: No PE, severe bilateral airspace consolidation likely pneumonia or pulmonary edema. He had a T-max: 100.3, 79% on 4 L nasal cannula. He was placed on non-rebreather. Allergies No Known Allergies Allergy (Verified 08/03/19 18:41) Home Medications: Bimatoprost [Lumigan] 1 drop BEDTIME 08/03/19 Brimonidine Tartrate [Alphagan P] 1 drop BID 08/03/19 Terazosin HCl 1 cap PO DAILY 08/03/19 Aspirin [Aspirin EC 81 MG] 162 mg PO DAILY #60 tablet. 08/06/19 Atorvastatin Calcium [Lipitor] 40 mg PO BEDTIME #30 tab 08/06/19 - Past Medical/Surgical History Diabetic: No -: Hypertension -: cataracts -: Glaucoma -: rogers cataracts removal -: rogers lens implant - Family History Mother -: Heart disease - Social History Smoking Status: Former smoker Alcohol use: No CD- Drugs: No Caffeine use: No Place of Residence: Home (with daughter and granddaughter) Review of Systems 10-point ROS is otherwise unremarkable Physical Examination - Physical Exam General: Alert, Mild distress HEENT: Sclerae nonicteric Respiratory: Crackles/rales (bilaterally), Other (labored breathing) Cardiovascular: Regular rate/rhythm, Edema (trace to 1+ bilaterally to mid- tibia) Gastrointestinal: Soft and benign, No tenderness Musculoskeletal: No tenderness Integumentary: No rashes, No tenderness/swelling Neurological: Normal speech, Normal affect - Studies Laboratory Data (last 24 hrs) 09/19/20 12:07: PT 15.8 H, INR 1.35 09/19/20 12:07: WBC 18.1 H, Hgb 15.9, Hct 47.5, Plt Count 269 09/19/20 12:07: Sodium 133 L, Potassium 4.3, BUN 20 H, Creatinine 1.04, Glucose 89, Magnesium 2.4, Total Bilirubin 1.3 H, AST 51 H, ALT 26, Alkaline Phosphatase 76 Assessment and Plan - Advance Directives Does patient have a Living Will: Yes Does patient have a Durable POA for Healthcare: Yes Physician Review Additional Text: Acute hypoxemic respiratory failure secondary to COVID-19 pneumonia possible bacterial pneumonia superinfection HTN macular degeneration admit to COVID floor Cultures obtained in the ED, continue Rocephin and azithromycin. Patient unsure if received antibiotics during recent hospitalization Cover with IV Solu-Medrol as well Trend CRP and ferritin. Check pro calcitonin Leukocytosis, may be due to recent steroid use Mildly elevated lactate, due to hypoxia, did receive 500 cc bolus of normal saline in the ED, repeat lactate pending Patient does not appear to be septic/severe sepsis Troponin mildly elevated, patient denies chest pain, likely demand ischemia, will trend Pulmonology consulted obtain and restart home medications as appropriate VTE: lovenox Code: full Dispo: anticipate hospitalizaton >2 days, likely dc home Time Spent Managing Pts Care (In Minutes): 60
--- NOTE | 2020-09-19 13:32 | RAD REPORT ---
EXAM DESCRIPTION: RAD - Chest Single View - 09/19/2020 11:32 am CLINICAL HISTORY: Cough;Dyspnea Chest pain. COMPARISON: Chest Single View dated 08/03/2019; CHEST PA AND LAT 2 VIEW dated 06/05/2015; CHEST PA AND LAT 2 VIEW dated 02/20/2014 FINDINGS: Portable technique limits examination quality. Extensive airspace opacification is present bilaterally, greater on the right, likely representing pn eumonia. The heart is mildly prominent in size. No displaced fractures.
[2020-09-19 14:45] LABS: Ferritin 491.7 ng/mL (26-388)
--- NOTE | 2020-09-19 17:30 | P.CNS ---
Date of Consult: 09/19/20 Chief Complaint: Worsening COVID-19 pneumonia History of Present Illness: Patient is 82 years of age with a history of hypertension admitted with worsening dyspnea was diagnosed with li virus infection about a week ago at [place] at [facility] with became worse again and appeared in the hospital respiratory failure diffuse bilateral changes Allergies No Known Allergies Allergy (Verified 08/03/19 18:41) Home Medications: Bimatoprost [Lumigan] 1 drop BEDTIME 08/03/19 Brimonidine Tartrate [Alphagan P] 1 drop BID 08/03/19 Terazosin HCl 1 cap PO DAILY 08/03/19 Aspirin [Aspirin EC 81 MG] 162 mg PO DAILY #60 tablet. 08/06/19 Atorvastatin Calcium [Lipitor] 40 mg PO BEDTIME #30 tab 08/06/19 - Past Medical/Surgical History Diabetic: No -: Hypertension -: cataracts -: Glaucoma -: rogers cataracts removal -: rogers lens implant - Family History Mother Medical History: Heart disease - Social History Alcohol use: No CD- Drugs: No Caffeine use: No Place of Residence: Home (with daughter and granddaughter) Review of Systems General: Weakness Respiratory: Shortness of Breath Physical Examination General: Alert, Moderate distress Respiratory: Crackles/rales Cardiovascular: No edema, Normal S1 S2 Laboratory Data (last 24 hrs) 09/19/20 12:07: PT 15.8 H, INR 1.35 09/19/20 12:07: WBC 18.1 H, Hgb 15.9, Hct 47.5, Plt Count 269 09/19/20 12:07: Sodium 133 L, Potassium 4.3, BUN 20 H, Creatinine 1.04, Glucose 89, Magnesium 2.4, Total Bilirubin 1.3 H, AST 51 H, ALT 26, Alkaline Phosphatase 76 - Problems (1) Pneumonia due to 2019 novel coronavirus Current Visit: Yes Status: Acute Plan: Patient is 89 years of age admitted with pneumonia due to li virus he has extensive bilateral changes no evidence of pulmonary embolus and treat patient with high doses of steroids titrate sat to 88-90% prone position ventilation for anticoagulation
[2020-09-19] MEDS: APIXABAN 5 MG TABLET PO SCH (21:00)
[2020-09-19] MEDS ORDERED: APIXABAN 5 MG TABLET ONE (23:38)
[2020-09-20 00:22] VITALS: BMI 25.0
[2020-09-20] MEDS: METHYLPREDNISOLONE 125 MG INJ IV SCH ×3 (01:00→17:00)
[2020-09-20] MEDS ORDERED: METHYLPREDNISOLONE 125 MG INJ ONE ×3 (03:18→17:59)
[2020-09-20 04:39] LABS: Absolute Lymphocytes (CBC) 0.5 K/uL (0.7-4.9); Basophils % 0.2 % (0-1.3); Hematocrit 47.5 % (39.6-49.0); Lymphocytes % 2.7 % (15.3-44.8); MPV 9.6 fL (7.6-11.3); RBC Red Blood Cell Count 5.16 M/uL (4.33-5.43)
[2020-09-20 04:57] LABS: ALT/SGPT 22 U/L (12-78); AST/SGOT 43 U/L (15-37); Albumin 1.9 g/dL (3.4-5.0); Alkaline Phosphatase 68 U/L (45-117); BUN Blood Urea Nitrogen 20 mg/dL (7-18); Bicarbonate 25 mmol/L (21-32); Bilirubin Total 1.1 mg/dL (0.2-1.0); Glucose Level 110 mg/dL (74-106); Magnesium 2.5 mg/dL (1.8-2.4); Potassium 4.3 mmol/L (3.5-5.1); Protein, Total 6.1 g/dL (6.4-8.2); Sodium Level 135 mmol/L (136-145)
[2020-09-20 05:03] LABS: Ferritin 570.7 ng/mL (26-388)
[2020-09-20 06:33] LABS: Phosphorus 3.3 mg/dL (2.5-4.9)
[2020-09-20] MEDS ORDERED: CEFTRIAXONE 1 GM/NS 50 ML 1 GM/50 ML BAG IV SCH (09:00)
[2020-09-20] MEDS: SPIRONOLACTONE 25 MG TABLET PO SCH (09:00)
[2020-09-20] MEDS: APIXABAN 5 MG TABLET PO SCH ×2 (09:00→21:00)
[2020-09-20] MEDS: levoFLOXacin 500 MG TAB PO SCH (09:00)
[2020-09-20] MEDS ORDERED: AZITHROMYCIN IV 500 MG in NA CHLORIDE 0.9% 250 ML IVPB SCH (09:00)
[2020-09-20] MEDS ORDERED: CEFTRIAXONE/SWI 1gm 1 GM/10 ML SYR IV SCH (09:00)
[2020-09-20] MEDS ORDERED: FUROSEMIDE 20 MG/ 2ML VIAL IV ONE (09:42)
--- NOTE | 2020-09-20 09:44 | P.PN ---
Subjective Date of Service: 09/20/20 Chief Complaint: Mcduffie virus pneumonia No change still complaining of shortness of breath he is on high concentrations of oxygen Review of Systems General: Weakness Respiratory: Shortness of Breath Physical Examination - Vital Signs Temperature: 98.2 F Blood Pressure: 158/92 Pulse: 95 Respirations: 25 Pulse Ox (%): 92 - Physical Exam General: Alert, Oriented x3, Moderate distress Respiratory: Clear to auscultation bilaterally, Crackles/rales - Studies Laboratory Data (last 24 hrs) 09/19/20 12:07: PT 15.8 H, INR 1.35 09/19/20 12:07: WBC 18.1 H, Hgb 15.9, Hct 47.5, Plt Count 269 09/19/20 12:07: Sodium 133 L, Potassium 4.3, BUN 20 H, Creatinine 1.04, Glucose 89, Magnesium 2.4, Total Bilirubin 1.3 H, AST 51 H, ALT 26, Alkaline Phosphatase 76 Assessment & Plan - Problems (Diagnosis) (1) Pneumonia due to 2019 novel coronavirus Current Visit: Yes Status: Acute Plan: Patient admitted with mcduffie virus pneumonia is white count is mildly elevated continue with antibiotics car changer to p.o. Zithromax continue with IV Rocephin Solu-Medrol dose was increased I have added BiPAP prone position ventilation change to p.o. levofloxacin continue with steroids I have added low- dose diuretic maintain negative fluid balance
[2020-09-20] MEDS ORDERED: APIXABAN 5 MG TABLET ONE ×2 (10:53→21:41)
[2020-09-20] MEDS ORDERED: FUROSEMIDE 20 MG/ 2ML VIAL ONE (10:53)
[2020-09-20] MEDS ORDERED: levoFLOXacin 500 MG TAB ONE (10:54)
--- NOTE | 2020-09-20 16:05 | P.PN ---
Subjective Date of Service: 09/20/20 Chief Complaint: Mcduffie virus pneumonia Subjective: No new changes (no acute events overnight. patient reports breathing is "About the same", continues on HFNC, denies chest pain, no diarrhea) Review of Systems 10-point ROS is otherwise unremarkable Physical Examination - Vital Signs Temperature: 98.6 F Blood Pressure: 164/90 Pulse: 96 Respirations: 24 Pulse Ox (%): 93 - Physical Exam General: Alert HEENT: Sclerae nonicteric Respiratory: Other (mild labored respirations on HFNC) Cardiovascular: Edema (trace to ankles), Irregular heart rate/rhythm Gastrointestinal: Soft and benign, Non-distended, No tenderness Musculoskeletal: No tenderness Integumentary: No rashes Neurological: Normal speech, Normal affect Assessment & Plan Physician Review Additional Text: Acute hypoxemic respiratory failure secondary to COVID-19 pneumonia possible bacterial pneumonia superinfection HTN macular degeneration Cultures obtained in the ED, on PO levaquin for possible superinfection Cover with high dose IV Solu-Medrol CRP and ferritin increased, continue to trend. procal mildly elevated leukocytosis likely due to steroid use Troponin mildly elevated, patient denies chest pain, likely demand ischemia, trended down Pulmonology consulted, started on spironolactone continue eliquis for VTE prophylaxis in setting of COVID-19 infection CXR in AM VTE: Eliquis Code: full Dispo: anticipate hospitalization >2 days, has home O2 set up already Time Spent Managing Pts Care (In Minutes): 40
[2020-09-20] MEDS: DOCUSATE NA 100 MG CAP PO SCH (21:00)
[2020-09-21] MEDS ORDERED: DOCUSATE NA 100 MG CAP PO ONE (00:03)
[2020-09-21 05:49] LABS: Albumin 1.9 g/dL (3.4-5.0); Bilirubin Total 1.1 mg/dL (0.2-1.0); C-Reactive Protein 95.1 mg/L (<3.00); Ferritin 720.1 ng/mL (26-388); Magnesium 2.4 mg/dL (1.8-2.4); Potassium 4.4 mmol/L (3.5-5.1); Protein, Total 6.1 g/dL (6.4-8.2)
--- NOTE | 2020-09-21 08:50 | RAD REPORT ---
EXAM DESCRIPTION: RAD - Chest Single View - 09/21/2020 5:38 am CLINICAL HISTORY: SOB, COVID Chest pain. COMPARISON: Chest Single View dated 09/19/2020; Chest Single View dated 08/03/2019; CHEST PA AND LAT 2 VIEW dated 06/05/2015; CHEST PA AND LAT 2 VIEW dated 02/20/2014 FINDINGS: Portable technique limits examination quality. Mild improvement in bilateral pulmonary opacities is noted in since comparative study. The heart is n ormal in size. No displaced fractures.Aortic atherosclerosis. IMPRESSION: Mild improvement in lung aeration seen since comparative study.
[2020-09-21] MEDS: METHYLPREDNISOLONE 125 MG INJ IV SCH ×3 (09:00→17:00)
[2020-09-21] MEDS: DOCUSATE NA 100 MG CAP PO SCH ×2 (09:00→21:49)
[2020-09-21] MEDS: APIXABAN 5 MG TABLET PO SCH ×2 (09:00→21:49)
[2020-09-21] MEDS: levoFLOXacin 500 MG TAB PO SCH (09:00)
[2020-09-21] MEDS ORDERED: APIXABAN 5 MG TABLET ONE (09:59)
[2020-09-21] MEDS ORDERED: levoFLOXacin 500 MG TAB ONE (09:59)
--- NOTE | 2020-09-21 12:25 | P.PN ---
Subjective Date of Service: 09/21/20 Chief Complaint: Mcduffie virus pneumonia Not doing very well still requiring high concentrations of oxygen he is not feeling well still very weak short of breath Review of Systems General: Weakness Respiratory: Shortness of Breath Physical Examination - Vital Signs Temperature: 98.5 F Blood Pressure: 169/92 Pulse: 112 Respirations: 25 Pulse Ox (%): 89 Assessment & Plan - Problems (Diagnosis) (1) Pneumonia due to 2019 novel coronavirus Current Visit: Yes Status: Acute Plan: Respiratory failure from mcduffie virus continue with present therapy white count mildly elevated ferritin levels are still elevated no change in present therapy use prone pressure ventilation patient is a spironolactone of also added some Lasix chest x-ray shows extensive opacification patient did not tolerate BiPAP is on high-flow right now
[2020-09-21] MEDS: SPIRONOLACTONE 25 MG TABLET PO SCH (12:26)
[2020-09-21] MEDS ORDERED: METHYLPREDNISOLONE 125 MG INJ ONE ×2 (12:33→17:12)
[2020-09-21] MEDS: METOPROLOL TAR 25 MG TAB PO SCH ×2 (12:49→18:00)
[2020-09-21] MEDS ORDERED: METOPROLOL TAR 25 MG TAB ONE ×2 (12:55→18:38)
[2020-09-21] MEDS: FUROSEMIDE 20 MG/ 2ML VIAL IV SCH (14:37)
[2020-09-21] MEDS ORDERED: FUROSEMIDE 20 MG/ 2ML VIAL ONE (14:47)
--- NOTE | 2020-09-21 19:06 | P.PN ---
Subjective Date of Service: 09/21/20 Chief Complaint: Mcduffie virus pneumonia Subjective: No new changes (feels aabout the same as yesterday, still on HFNC, didn't tolerate BIPAP yesterday states he has thought about things since yesterday, wishes to be DNR/DNI, and refuses BIPAP) Review of Systems 10-point ROS is otherwise unremarkable Physical Examination - Vital Signs Temperature: 98.3 F Blood Pressure: 157/78 Pulse: 93 Respirations: 27 Pulse Ox (%): 93 - Physical Exam General: Alert, Mild distress HEENT: Sclerae nonicteric Respiratory: Other (labored respirations on HFNC) Cardiovascular: Edema (trace), Irregular heart rate/rhythm Gastrointestinal: Soft and benign, No tenderness Musculoskeletal: No tenderness Integumentary: No rashes Neurological: Normal speech, Normal affect Assessment & Plan Physician Review Additional Text: Acute hypoxemic respiratory failure secondary to COVID-19 pneumonia possible bacterial pneumonia superinfection HTN macular degeneration Cultures obtained in the ED, on PO levaquin for possible superinfection, no growth so far continue high dose IV Solu-Medrol CRP improved, ferritin worsened, continue to trend. Procal mildly elevated leukocytosis likely due to steroid use Troponin mildly elevated, patient denies chest pain, likely demand ischemia, trended down Pulmonology consulted, started on spironolactone, given lasix today continue eliquis for VTE prophylaxis in setting of COVID-19 infection restart home antihypertensives VTE: Eliquis Code: full Dispo: anticipate hospitalization >2 days, has home O2 set up already Time Spent Managing Pts Care (In Minutes): 35
[2020-09-21] MEDS: ATORVASTATIN 40 MG TAB PO SCH (21:49)
[2020-09-22] MEDS: METHYLPREDNISOLONE 125 MG INJ IV SCH ×3 (00:18→16:34)
[2020-09-22] MEDS: METOPROLOL TAR 25 MG TAB PO SCH ×2 (05:24→16:34)
[2020-09-22 06:16] LABS: Absolute Lymphocytes (CBC) 0.3 K/uL (0.7-4.9); Basophils % 0.7 % (0-1.3); Hematocrit 44.8 % (39.6-49.0); Lymphocytes % 1.4 % (15.3-44.8); MPV 9.3 fL (7.6-11.3); RBC Red Blood Cell Count 4.91 M/uL (4.33-5.43)
[2020-09-22 06:49] LABS: C-Reactive Protein 91.6 mg/L (<3.00); Ferritin 808.3 ng/mL (26-388); Magnesium 2.6 mg/dL (1.8-2.4); Potassium 4.2 mmol/L (3.5-5.1)
[2020-09-22] MEDS: APIXABAN 5 MG TABLET PO SCH ×2 (08:00→20:39)
[2020-09-22] MEDS: FUROSEMIDE 20 MG/ 2ML VIAL IV SCH (08:00)
[2020-09-22] MEDS: levoFLOXacin 500 MG TAB PO SCH (08:00)
[2020-09-22] MEDS: SPIRONOLACTONE 25 MG TABLET PO SCH (08:00)
[2020-09-22] MEDS: VALSARTAN 80 MG TAB PO SCH (08:00)
[2020-09-22] MEDS: DOCUSATE NA 100 MG CAP PO SCH ×2 (08:02→20:39)
[2020-09-22] MEDS ORDERED: HYDRALAZINE HCL 20 MG/ML VIAL IV STA (12:04)
[2020-09-22] MEDS ORDERED: FUROSEMIDE 20 MG/ 2ML VIAL IV SCH (12:10)
--- NOTE | 2020-09-22 12:10 | P.PN ---
Subjective Date of Service: 09/22/20 Chief Complaint: Mcduffie virus pneumonia No change patient weak still requiring high concentrations of oxygen Review of Systems General: Weakness Respiratory: Shortness of Breath Physical Examination - Vital Signs Temperature: 98.1 F Blood Pressure: 173/86 Pulse: 87 Respirations: 28 Pulse Ox (%): 82 Assessment & Plan - Problems (Diagnosis) (1) Pneumonia due to 2019 novel coronavirus Current Visit: Yes Status: Acute Plan: Respiratory failure due to mcduffie virus unable to tolerate BiPAP continue with high-flow oxygen white count is still elevated inflammatory parameters are also still elevated chest x-ray still was shows significant bilateral changes blood pressure elevated start on Lasix
--- NOTE | 2020-09-22 17:42 | P.PN ---
Subjective Date of Service: 09/22/20 Chief Complaint: Mcduffie virus pneumonia Patient states he does not tolerate the BiPAP. He refuses to wear BiPAP. His oxygen saturation on 100% FiO2 on BiPAP is hovering between 85-90. He is DNR and DNI. Physical Examination - Vital Signs Temperature: 98.7 F Blood Pressure: 160/82 Pulse: 100 Respirations: 24 Pulse Ox (%): 93 - Physical Exam General: Alert, Moderate distress Neck: JVD not distended Respiratory: Crackles/rales (Bibasilar) Cardiovascular: No edema, Normal S1 S2, Irregular heart rate/rhythm Gastrointestinal: Soft and benign, Non-distended Musculoskeletal: No swelling Integumentary: No rashes Neurological: Normal speech, Normal strength at 5/5 x4 extr Assessment And Plan - Current Problems (Diagnosis) (1) Acute respiratory failure with hypoxia Current Visit: Yes Status: Acute (2) Pneumonia due to 2019 novel coronavirus Current Visit: Yes Status: Acute (3) Chronic kidney disease, stage 3 Current Visit: No Status: Acute Physician Review Additional Text: Acute hypoxemic respiratory failure secondary to COVID-19 pneumonia possible bacterial pneumonia superinfection HTN macular degeneration Patient on oral levaquin for possible superinfection. continue high dose IV Solu-Medrol Inflammatory markers remain elevated No change in leukocytosis. Troponin trended flat. Not NSTEMI. Patient refuses BiPAP. Continue high-flow oxygen. Pulmonary is following. Is getting Lasix intermittently. continue eliquis for VTE prophylaxis in setting of COVID-19 infection VTE: Eliquis
[2020-09-22] MEDS: ATORVASTATIN 40 MG TAB PO SCH (20:39)
[2020-09-23] MEDS: METHYLPREDNISOLONE 125 MG INJ IV SCH ×3 (00:25→17:00)
[2020-09-23 04:37] LABS: Absolute Lymphocytes (CBC) 0.3 K/uL (0.7-4.9); Basophils % 0.6 % (0-1.3); Hematocrit 48.7 % (39.6-49.0); Lymphocytes % 1.4 % (15.3-44.8); MPV 10.1 fL (7.6-11.3)
[2020-09-23 04:51] LABS: C-Reactive Protein 88.1 mg/L (<3.00); Ferritin 924.5 ng/mL (26-388); Potassium 4.3 mmol/L (3.5-5.1)
[2020-09-23] MEDS: METOPROLOL TAR 25 MG TAB PO SCH ×2 (06:12→17:21)
[2020-09-23 06:15] LABS: Blood Morphology Comment NOTED (NOT SEEN); Platelet Estimate DECR; Platelets, Giant FEW
[2020-09-23 06:16] LABS: Burr Cells 2+
[2020-09-23] MEDS: VALSARTAN 80 MG TAB PO SCH (08:18)
[2020-09-23] MEDS: levoFLOXacin 500 MG TAB PO SCH (08:18)
[2020-09-23] MEDS: FUROSEMIDE 20 MG/ 2ML VIAL IV SCH (08:18)
[2020-09-23] MEDS: DOCUSATE NA 100 MG CAP PO SCH ×2 (08:18→21:00)
[2020-09-23] MEDS: SPIRONOLACTONE 25 MG TABLET PO SCH (08:19)
[2020-09-23] MEDS: APIXABAN 5 MG TABLET PO SCH ×2 (09:05→21:00)
--- NOTE | 2020-09-23 12:48 | P.PN ---
Subjective Date of Service: 09/23/20 Chief Complaint: Mcduffie virus pneumonia Patient not doing well is not very alert refusing BiPAP wants to Physical Examination - Vital Signs Temperature: 98.3 F Blood Pressure: 153/95 Pulse: 100 Respirations: 38 Pulse Ox (%): 66 - Physical Exam General: Unresponsive Respiratory: Diminished, Crackles/rales Assessment & Plan - Problems (Diagnosis) (1) Pneumonia due to 2019 novel coronavirus Current Visit: Yes Status: Acute Plan: Respiratory failure from mcduffie virus patient is not doing too well his very hypoxic unlikely to survive refused BiPAP
--- NOTE | 2020-09-23 16:04 | P.PN ---
Subjective Date of Service: 09/23/20 Chief Complaint: Mcduffie virus pneumonia Patient states he does not tolerate the BiPAP. I had a lengthy discussion with him today. He is alert and oriented and deemed to understand his current situation and environment. Patient deemed capable of making informed medical decisions. He continues to refuse BiPAP and does not want any further discussion about it. I made him aware that he may survive with only the high-flow oxygen. He is made aware he can developed cardiac arrest and given his current SaO2 readings. He voiced understanding and continues to refuse the BiPAP. He also declined hospice or comfort measures. He is DNR and DNI. Physical Examination - Vital Signs Temperature: 98.3 F Blood Pressure: 153/95 Pulse: 100 Respirations: 38 Pulse Ox (%): 66 - Physical Exam General: Alert, Oriented x3, Moderate distress Respiratory: Crackles/rales Cardiovascular: No edema, Irregular heart rate/rhythm Gastrointestinal: Soft and benign, Non-distended Musculoskeletal: No swelling Integumentary: No rashes Neurological: Normal strength at 5/5 x4 extr, Cranial nerves 3-12 intact Assessment And Plan - Current Problems (Diagnosis) (1) Acute respiratory failure with hypoxia Current Visit: Yes Status: Acute (2) Pneumonia due to 2019 novel coronavirus Current Visit: Yes Status: Acute (3) Chronic kidney disease, stage 3 Current Visit: No Status: Acute Physician Review Additional Text: Acute hypoxemic respiratory failure secondary to COVID-19 pneumonia possible bacterial pneumonia superinfection HTN macular degeneration Patient on oral levaquin for possible superinfection. continue high dose IV Solu-Medrol Inflammatory markers remain elevated Leukocytosis is getting worse. Ferritin also worsening. Troponin trended flat. Not NSTEMI. Continue high-flow oxygen. Pulmonary is following. Lasix intermittently as needed. continue eliquis for VTE prophylaxis in setting of COVID-19 infection
[2020-09-23] MEDS: ATORVASTATIN 40 MG TAB PO SCH (21:00)
[2020-09-24 06:07] VITALS: BP 88/47; TEMP 95.3
[2020-09-24 06:12] VITALS: O2SAT 53
--- NOTE | 2020-09-24 17:40 | P.DS ---
Admission Date: 09/19/20 Discharge Date: 09/24/20 Disposition: Reason for Admission: Mcduffie virus pneumonia Consultations: Pulmonary-Dr. Walters. - Problems (1) Acute respiratory failure with hypoxia Status: Acute (2) Pneumonia due to 2019 novel coronavirus Status: Acute (3) Chronic kidney disease, stage 3 Status: Acute Brief History of Present Illness: 89-year-old gentleman with a history of hypertension presented to the emergency department with a complaint of shortness of breath. Patient was diagnosed with COVID 19 the week prior, was hospitalized at [facility] and discharged with oxygen. Patient reported sudden onset of shortness of breath. He was hypoxic on 4 L of oxygen. CTA thorax done in the emergency department showed severe bilateral pulmonary infiltrates. Patient was placed on 100% non-rebreather mask and admitted for further management. Hospital Course: Patient admitted to the medical floor and treated with high-dose steroid, antibiotics for possible bacterial super infection. Patient required both BiPAP ventilation and high-flow oxygen initially. His respiratory condition got worse. He did not tolerate and refused to work anymore BIPAP. He was hypoxic on high-flow oxygen. Patient requested for DNR and DNI. He was made aware the high-flow oxygen incident in out to keep his oxygen saturation at an adequate level and he stand the risk of cardiac arrest. Patient was adamant and continued to refuse BiPAP therapy. Per chart review, he later refused oral medications and IV medications. Patient subsequently developed asystole and on 09/24/2020 at 0500 hours. Vital Signs/Physical Exam: Temp Pulse Resp BP Pulse Ox 95.3 F L 62 24 H 88/47 L 53 L 09/24/20 04:00 09/24/20 04:00 09/24/20 04:00 09/24/20 04:00 09/24/20 04:00 Laboratory Data at Discharge: WBC Cancelled 09/24/20 05:00 Hgb Cancelled 09/24/20 05:00 Hct Cancelled 09/24/20 05:00 Plt Count Cancelled 09/24/20 05:00 PT 15.8 SECONDS (9.5-12.5) H 09/19/20 12:07 INR 1.35 09/19/20 12:07 Sodium Cancelled 09/24/20 05:00 Potassium Cancelled 09/24/20 05:00 BUN Cancelled 09/24/20 05:00 Creatinine Cancelled 09/24/20 05:00 Glucose Cancelled 09/24/20 05:00 Phosphorus 3.3 mg/dL (2.5-4.9) 09/20/20 04:09 Magnesium 2.6 mg/dL (1.8-2.4) H 09/22/20 05:48 Total Bilirubin 1.1 mg/dL (0.2-1.0) H 09/21/20 04:26 AST 43 U/L (15-37) H 09/21/20 04:26 ALT 21 U/L (12-78) 09/21/20 04:26 Alkaline Phosphatase 79 U/L (45-117) 09/21/20 04:26 Troponin I 0.05 ng/mL (0.0-0.045) H 09/19/20 22:29 Home Medications: Bimatoprost [Lumigan] 1 drop BEDTIME 08/03/19 Brimonidine Tartrate [Alphagan P] 1 drop BID 08/03/19 Terazosin HCl 1 cap PO DAILY 08/03/19 Aspirin [Aspirin EC 81 MG] 162 mg PO DAILY #60 tablet. 08/06/19 Atorvastatin Calcium [Lipitor] 40 mg PO BEDTIME #30 tab 08/06/19 Valsartan 1 tab PO DAILY 09/20/20 Followup: Unknown,U [Primary Care Provider] -
== END 2020-09-24 07:25 | disposition expired | DRG 871 ==
LOC: ER 10:58 → ERHOLD 13:17 → 4TH 09-21 20:28
PROVIDERS: ADMIT Hospitalist; ATTEND Internal Medicine
DX: A41.89 Other specified sepsis (principal); U07.1 COVID-19; J12.89 Other viral pneumonia; J96.01 Acute respiratory failure with hypoxia; J15.9 Unspecified bacterial pneumonia; D72.829 Elevated white blood cell count, unspecified; H35.30 Unspecified macular degeneration; I12.9 Hypertensive chronic kidney disease with stage 1 through stage 4 chronic kidney disease, or unspecified chronic kidney disease; N18.30 Chronic kidney disease, stage 3 unspecified; Z66 Do not resuscitate; Z99.81 Dependence on supplemental oxygen; Z96.1 Presence of intraocular lens; Z79.82 Long term (current) use of aspirin; Z53.29 Procedure and treatment not carried out because of patient's decision for other reasons; Z79.899 Other long term (current) drug therapy; Z86.73 Personal history of transient ischemic attack (TIA), and cerebral infarction without residual deficits; Z87.891 Personal history of nicotine dependence
CPT/HCPCS: 36415; 71045; 71275; 80048; 80053; 80076; 82565; 82728; 83605; 83735; 83880; 84100; 84145; 84484; 85025; 85610; 86140; 87040; 87070; 87205; 93005; 94002; 94003; 94660; 94760; 99285; J0360; J0456; J0696; J1100; J1940; J2930; J7030; J7050; Q9967; U0003